=== PATIENT | female | born 1985 | race Caucasian/White ===

== ENCOUNTER 2023-11-02 17:47 | Emergency (ER) | payer SELFPAY ==
[2023-11-02 17:50] VITALS: BP 130/73; PULSE 87; RESP 20; TEMP 36.8; O2SAT 97; BMI 38.7
--- NOTE | 2023-11-02 18:17 | ECG_ITS ---
The [facility] Test Date: 2023-11-02 Pat Name: GARO ROBLES Department: Room: - Gender: Female [employer]: : 1985 Requested By: GAUTAM DENSON Order Number: [id number] Reading MD: GAUTAM DENSON Measurements Intervals [place] Rate: 69 P: 72 MT: 158 QRS: 78 QRSD: 98 T: 72 QT: 390 QTc: 409 Interpretive Statements 1100 Sinus rhythm 9110 normal ECG No previous ECG available for comparison Electronically Signed On 11-03-2023 4:59:02 EST by GAUTAM DENSON
--- NOTE | 2023-11-02 18:18 | ED_ITS ---
HPI - General Adult General Chief complaint: Dizziness Stated complaint: CHEST PAIN Time Seen by Provider: 11/02/23 17:49 Source: patient Mode of arrival: walk-in Limitations: no limitations Related Data Allergies Allergy/AdvReac Type Severity Reaction Status Date / Time asenapine [From Saphris] Allergy Intermediate Verified 11/02/23 17:58 ciprofloxacin [From Cipro] Allergy Intermediate Verified 11/02/23 17:58 hydromorphone [From Dilaudid] Allergy Intermediate Hives Verified 11/02/23 17:58 levofloxacin [From Levaquin] Allergy Intermediate Verified 11/02/23 17:58 Review of Systems ROS Constitutional Reports: fatigue and malaise; Denies: fever or chills Ears, nose, mouth, and throat Reports: nasal congestion Cardiovascular Reports: chest pain Respiratory Reports: shortness of breath and cough Gastrointestinal Denies: nausea, vomiting or diarrhea Genitourinary Denies: painful urination Musculoskeletal Denies: back pain Integumentary/Breast Denies: rash Neurological Reports: dizziness; Denies: headache Hematologic/Lymphatic Denies: easy bruising Exam Narrative Exam Narrative: Gen.: Awake, alert, in no distress Head: Normocephalic, atraumatic ENT: Moist mucous membranes Respiratory: No respiratory distress, lungs clear bilaterally Cardio: Regular rate and rhythm Extremities: Moves extremities equally Psych: Normal mood and affect Neuro: No focal neuro deficit Skin: Warm, dry, intact Constitutional Vital Signs, click to edit/add: Last Vital Signs Temp 98.3 F 11/02/23 17:50 Pulse 70 11/02/23 20:15 Resp 18 11/02/23 20:15 BP 126/77 11/02/23 20:15 Pulse Ox 98 11/02/23 20:15 O2 Del Method Room Air 11/02/23 17:50 Course Vital Signs Vital signs: Vital Signs Temperature 98.3 F 11/02/23 17:50 Pulse Rate 87 11/02/23 17:50 Respiratory Rate 20 11/02/23 17:50 Blood Pressure 130/73 11/02/23 17:50 Pulse Oximetry 97 11/02/23 17:50 Oxygen Delivery Method Room Air 11/02/23 17:50 Temperature 98.3 F 11/02/23 17:50 Pulse Rate 70 11/02/23 20:15 Respiratory Rate 18 11/02/23 20:15 Blood Pressure 126/77 11/02/23 20:15 Pulse Oximetry 98 11/02/23 20:15 Oxygen Delivery Method Room Air 11/02/23 17:50 Medical Decision Making MDM Narrative Medical decision making narrative: EKG, lab studies, chest x-ray are unremarkable including D-dimer and troponin. Patient treated with IV fluids. She maintains normal vital signs in the emergency department. She was given education and reassurance on reevaluation by attending physician and will be discharged to follow-up tomorrow as scheduled with her primary care provider. Medical Records Medical records reviewed: Yes I reviewed the patient's medical records Lab Data Lab results reviewed: Yes I reviewed the patient's lab results Labs: Lab Results 11/02/23 11/02/23 Range/Units 18:35 19:00 WBC 6.3 (4.0-11.0) 10^3/uL RBC 4.26 (4.20-5.40) 10^6/uL Hgb 12.3 (12.0-16.0) g/dL Hct 39.7 (36.0-48.0) % MCV 93.2 (81.0-99.0) fL MCH 28.9 (26.7-34.0) pg MCHC 31.0 (29.9-35.2) g/dL RDW 12.3 (11.0-15.0) % Plt Count 244 (150-450) 10^3/uL MPV 9.6 (9.5-13.5) fL Neut % (Auto) 38.9 L (43.0-75.0) % Lymph % (Auto) 48.6 (20.5-60.0) % [place] % (Auto) 10.3 (1.7-12.0) % Eos % (Auto) 1.6 (0.9-7.0) % Baso % (Auto) 0.3 (0.2-2.0) % Neut # (Auto) 2.5 (1.4-6.5) 10^3/uL Lymph # (Auto) 3.1 (1.2-3.8) 10^3/uL [place] # (Auto) 0.7 (0.3-0.8) 10^3/uL Eos # (Auto) 0.1 (0.0-0.7) 10^3/uL Baso # (Auto) 0.0 (0.0-0.1) 10^3/uL Abs Immat Gran (auto) 0.02 (0.00-0.03) 10^3/uL Imm/Tot Granulo (auto) 0.3 (0.0-0.5) % PT 10.0 (9.0-11.6) sec INR 0.94 APTT 27.3 (22.3-36.2) sec D-Dimer 0.29 (<=0.59) mg/L FEU Sodium 139 (136-145) mmol/L Potassium 3.5 (3.5-5.1) mmol/L Chloride 104 (98-107) mmol/L Carbon Dioxide 27.3 (21.0-32.0) mmol/L Anion Gap 11.2 BUN 15.0 (7.0-18.0) mg/dL Creatinine 1.05 H (0.55-1.02) mg/dL Est GFR ( Amer) >60 (>=60) Est GFR (Non-Af Amer) 59 L (>=60) BUN/Creatinine Ratio 14.3 Glucose 88 (74-106) mg/dL Calcium 8.4 L (8.5-10.1) mg/dL Total Bilirubin 0.3 (0.2-1.0) mg/dL AST 16 (15-37) U/L ALT 20 (14-59) U/L Alkaline Phosphatase 71 (46-116) U/L Troponin I High Sens <4.0 L (4.0-51.3) pg/mL NT-Pro-B Natriuret Pep 175.0 (<=450.0) pg/mL Total Protein 6.8 (6.4-8.2) g/dL Albumin 3.1 L (3.4-5.0) g/dL Globulin 3.7 g/dL Albumin/Globulin Ratio 0.8 Urine Color Lt. yellow (YELLOW) Urine Clarity Clear (CLEAR) Urine pH 6.5 (5.0-9.0) Ur Specific [place] 1.020 (1.005-1.025) Urine Protein Negative (NEG/TRACE) mg/dL Urine Glucose (UA) Negative (NEGATIVE) mg/dL Urine Ketones Negative (NEGATIVE) mg/dL Urine Occult Blood Negative (NEGATIVE) Urine Nitrite Negative (NEGATIVE) Urine Bilirubin Negative (NEGATIVE) Urine Urobilinogen 0.2 (0.2-1.0) EU/dL Ur Leukocyte Esterase Negative (NEGATIVE) Urine HCG, Qual Negative (NEGATIVE) Monoscreen Negative (NEGATIVE) Imaging Data Chest x-ray: Attestation: I personally reviewed and interpreted this imaging study as follows: My impression: NAD ECG Data Attestation: I personally reviewed and interpreted this ECG as follows: (Normal sinus rhythm at a rate of 69, no acute ST elevation or ectopy. EKG reviewed by attending physician) Discharge Plan Discharge Chief Complaint: Dizziness Clinical Impression: Dizziness, Chest pain Patient Disposition: Home, Self-Care Time of Disposition Decision: 20:23 Condition: Good Instructions: Chest Pain (ED), Dizziness (ED) Stand Alone Forms: Portal Instructions Referrals: Physician,Non-Staff, MD [Primary Care Provider] - 11/03/23
[2023-11-02] MEDS: 0.9 % SODIUM CHLORIDE 1,000 ML 1000 ML IV (19:13)
[2023-11-02 19:23] LABS: Basophils Percent Auto 0.3 % (0.2-2.0); Eosinophils Absolute Auto 0.1 10^3/uL (0.0-0.7); Eosinophils Percent Auto 1.6 % (0.9-7.0); Hematocrit 39.7 % (36.0-48.0); Hemoglobin 12.3 g/dL (12.0-16.0); Immature Granulocytes Abs Auto 0.02 10^3/uL (0.00-0.03); Immature Granulocytes Pct Auto 0.3 % (0.0-0.5); Lymphocytes Absolute Auto 3.1 10^3/uL (1.2-3.8); Lymphocytes Percent Auto 48.6 % (20.5-60.0); Mean Corpuscular Hemoglobin 28.9 pg (26.7-34.0); Mean Corpuscular Volume 93.2 fL (81.0-99.0); Mean Platelet Volume 9.6 fL (9.5-13.5); Monocytes Absolute Auto 0.7 10^3/uL (0.3-0.8); Monocytes Percent Auto 10.3 % (1.7-12.0); Neutrophils Absolute Auto 2.5 10^3/uL (1.4-6.5); Neutrophils Percent Auto 38.9 % (43.0-75.0); Platelet Count 244 10^3/uL (150-450); Red Blood Count 4.26 10^6/uL (4.20-5.40); Red Cell Distribution Width 12.3 % (11.0-15.0); White Blood Count 6.3 10^3/uL (4.0-11.0)
[2023-11-02 19:24] LABS: Bilirubin Urine NEGATIVE (NEGATIVE); Blood Urine NEGATIVE (NEGATIVE); Clarity Urine CLEAR (CLEAR); Color Urine LT. YELLOW (YELLOW); Glucose Urine UA NEGATIVE (NEGATIVE); Ketones Urine NEGATIVE (NEGATIVE); Leukocyte Esterase Urine NEGATIVE (NEGATIVE); Nitrite Urine NEGATIVE (NEGATIVE); Protein Urine NEGATIVE (NEG/TRACE); Urobilinogen Urine 0.2 EU/dL (0.2-1.0); pH Urine 6.5 (5.0-9.0)
--- NOTE | 2023-11-02 19:24 | PC.NURSE ---
assumed care of patient at this time. bedside report received from JONNA Oconnor. patient resting in bed, in no apparent distress, texting on phone while adding information to report being given. patient reports having multiple viral illnesses over the past 3 weeks including covid, flu b, and another virus. patient reports dizziness and poor appetite coupled with vomiting and diarrhea last week. weakness and dizziness persisting. patient also c/o sinus congestion. patient reports she has not been eating well and that she was recently seen at [facility] where they didn't do anything for me. [place] did bloodwork and swab showing flu B. Patient was sent home with shaylee.
[2023-11-02 19:26] LABS: HCG Qualitative Urine* NEGATIVE (NEGATIVE); Urine Microscopic Indicated NO
[2023-11-02 19:26] LABS: Mono Screen NEGATIVE (NEGATIVE)
[2023-11-02 19:36] LABS: Alanine Aminotransferase 20 U/L (14-59); Albumin Globulin Ratio 0.8; Albumin Level 3.1 g/dL (3.4-5.0); Alkaline Phosphatase 71 U/L (46-116); Anion Gap 11.2; Aspartate Amino Transferase 16 U/L (15-37); BUN Creatinine Ratio 14.3; Bilirubin Total 0.3 mg/dL (0.2-1.0); Calcium 8.4 mg/dL (8.5-10.1); Carbon Dioxide 27.3 mmol/L (21.0-32.0); Chloride 104 mmol/L (98-107); Estimated GFR (African America >60 (>=60); Estimated GFR (Non-African Ame 59 (>=60); Globulin 3.7 g/dL; Glucose 88 mg/dL (74-106); Potassium 3.5 mmol/L (3.5-5.1); Sodium 139 mmol/L (136-145); Total Protein 6.8 g/dL (6.4-8.2); Troponin I High Sensitivity <4.0 pg/mL (4.0-51.3)
[2023-11-02 19:41] LABS: D Dimer 0.29 mg/L FEU (<=0.59); INR 0.94; Partial Thromboplastin Time 27.3 sec (22.3-36.2)
--- NOTE | 2023-11-02 19:44 | XR_ITS ---
The [address] [address] Patient Name: GARO ROBLES MRN: [id number] date: 1985 Sex: F Assigned Patient Location: ER Current Patient Location: Accession/Order Number: [id number] Exam Date: 11/02/2023 20:05 Report Date: 11/02/2023 20:56 At the request of: ТАТЬЯНА ARTHUR Procedure: XR chest 1V EXAM: XR chest 1V REASON FOR EXAM: Female, 37 years, Chest pain. TECHNIQUE: A single AP view of the chest is performed. COMPARISON: None. FINDINGS: Cardiac monitoring leads overlie the chest. The lungs are expanded and clear. Normal pleura. Normal size heart. Normal mediastinum and aries. Normal visualized pulmonary arteries. Normal visualized aortic arch and descending thoracic aorta. Normal visualized thoracic spine. Normal visualized ribs, clavicles, and shoulders. There is no demonstrated abnormality of the visualized soft tissue structures of the upper abdomen. XR/XR chest 1V IMPRESSION: Normal examination of the chest. Electronically authenticated by: SANDRA CROOKS Date: 11/02/2023 20:56
[2023-11-02 20:15] VITALS: BP 126/77; PULSE 70; RESP 18; O2SAT 98
== END 2023-11-02 20:39 | disposition home or self-care (01) ==
PROVIDERS: Physician Assistant; Emergency Provider Internal Medicine
DX: R07.9 Chest pain, unspecified (principal); R42 Dizziness and giddiness
CPT/HCPCS: 36415; 71045; 80053; 81003; 83880; 84484; 84703; 85025; 85378; 85610; 85730; 86308; 93005; 96360; 99285

== ENCOUNTER 2024-08-19 10:10 | Emergency (ER) | payer SELFPAY ==
[2024-08-19 10:18] VITALS: BP 129/98; PULSE 80; TEMP 36.9; O2SAT 98; BMI 41.2
--- OUTSIDE RECORDS SUMMARY | 2024-08-19 10:22 | XMS_ITS | CCD ---
Author Organization [facility] Care Team Providers Care Equipment Lead Name Role Phone SYEDA SU Unavailable Unavailable PHYSICIAN, DEFAULT Admitting Unavailable PHYSICIAN, DEFAULT Attending Unavailable David Britton Attending Physician Unavailabl e David Britton Rounding Physician Unavailable Tony Baez Primary Care Physician Unavailab CAM Vasquez Attending Unavaila CAM Conte Admitting Unavaila ble Adi Brower Unavailable Lexy Baum Unavailable Magnolia Ugalde Unavailable Julita Rogel Unavailable BRIGHT Baum Primary Care Provider BRIGHT Baum Attending Provider [phone] Daniela Mccain Unavailable Ines Atkins Unavailable BRIGHT Baum Primary Care Provider BRIGHT Baum Attending Provider PORTER ADKINS Consulting Unavailable PORTER ADKINS Attending Unavailable DR VENANCIO HERNANDEZ Primary Care Unavailable PORTER ADKINS Admitting Unavailable DANITA DORSEY Consulting Unavailable NO FAMILY, PHYSICIAN Primary Care Provider Unava ilable DO Sneha Amaral Emergency Provider [phone] No Pcp, No Pcp Primary Care Provider Unavailabl e Sneha Amaral Attending Unavailable Sneha Amaral Admitting Unavailable NO FAMILY, PHYSICIAN Primary Care Unavailable NO PCP, NO PCP Primary Care Unavailable Allergies Allergy Classification Reported Allergen(s) Allergy Type Date of Onset Reaction(s) Facility (1 source) Acetaminophen / HYDROcodone; Translations: [VICODIN] Drug Allergy 03-22-20 10 [facility] (1 source) Acetaminophen / oxyCODONE; Translations: [PERCOCET] Drug Allergy 03-22-20 10 [facility] (1 source) Acetaminophen / Propoxyphene; Translations: [DARVOCET] Drug Allergy 03-22-20 10 [facility] (2 sources) Asenapine Drug Allergy 02-12-20 11 [facility] (20 sources) Asenapine; Translations: [asenapine] Drug Allergy 06-19-20 16 [facility] (20 sources) Ciprofloxacin; Translations: [ciprofloxacin] Drug Allergy 11-06-20 18 [facility] (19 sources) HYDROmorphone; Translations: [hydromorphone] Drug Allergy 11-06-20 18 [facility] (10 sources) levoFLOXacin; Translations: [levofloxacin] Drug Allergy 06-19-20 16 [facility] (14 sources) levoFLOXacin; Translations: [Levaquin] Drug Allergy [facility]ository (5 sources) Sertraline Drug Allergy Order Mapper Other (1 source) Ciprofloxacin Drug Allergy [facility] (1 source) HYDROmorphone Drug Allergy [facility] (2 sources) Acetaminophen / HYDROcodone; Translations: [HYDROCODONE-ACET AMINOPHEN] Drug Allergy 06-19-20 16 Nausea [facility] (2 sources) Ciprofloxacin; Translations: [CIPROFLOXACIN HCL] Drug Allergy 06-19-20 [facility] HYDROmorphone; Translations: [HYDROMORPHONE (BULK)] Drug Allergy 06-19-20 16 Itching [facility] (2 sources) Propoxyphene N-Acetaminophen; Translations: [PROPOXYPHENE N-ACETAMINOPHEN] Propensity to adverse reactions to drug 06-19-20 16 GI Disturbance, Nausea [facility] Medications Current Medications Medication Drug Class(es) Dates Sig (Normalized) Sig (Original) acetaminophen 325 mg / HYDROcodone bitartrate 7.5 mg oral tablet (3 sources) Opioid Agonist Start: 10-24-2021 take 6 tablets by mouth every four hours Hydrocodone-Acetami nophen Active 1 TAB PO Q4H October 24, 2021 12:00am FOR 7 DAYS, MAX DAILY AMOUNT: 6 TABLETS 3.2 ml ARIPiprazole lauroxil 276 mg/ml prefilled syringe (9 sources) Start: 09-26-2021 End: 10-01-2021 Aripiprazole Lauroxil (Aristada) 882 mg/3.2 mL Suspension,Extended Rel Syring Active 882 MG IM Q30D 3.2 October 01, 2021 8:16am Start: 09-26-2021 End: 10-01-2021 Aripiprazole Lauroxil,Submic r. (Aristada Initio) 675 mg/2.4 mL Suspension,Extended Rel Syring Discontinued 675 MG IM Once September 26, 2021 12:00am October 01, 2021 8:17am atomoxetine 60 mg oral capsule (8 sources) Norepinephrine Reuptake Inhibitor Start: 10-01-2021 take 60 mg by mouth once daily in the morning Atomoxetine Active 60 MG PO Every morning October 01, 2021 12:00am Farooq gutierres buPROPion hydrochloride 100 mg oral tablet (11 sources) Aminoketone take 1 tablet by mouth every twelve hours buPROPion HCl 100 MG 1 tablet Orally Twice a day Active buPROPion HCl Ac tive busPIRone hydrochloride 5 mg oral tablet (20 sources) Start: 10-24-2021 take 5 mg by mouth twice daily Buspirone Active 5 MG PO Twice daily October 24, 2021 12:00am Start: 10-01-2021 End: 10-24-2021 take 10 mg by mouth three times daily Buspirone Discontinued 10 MG PO Three times daily October 01, 2021 12:00am October 24, 2021 4:30am Start: 09-20-2021 End: 10-01-2021 take 10 mg by mouth twice daily Buspirone Discontinued 10 MG PO Twice daily September 19, 2021 11:00pm October 01, 2021 8:17am Start: 02-08-2021 End: 10-01-2021 take 5 mg by mouth twice daily Buspirone Discontinued 5 MG PO Twice daily 60 February 09, 2021 10:04am October 01, 2021 8:17am Start: 11-10-2018 End: 03-14-2019 take 5 mg by mouth three times daily Buspirone Discontinued 5 MG PO Three times daily November 10, 2018 12:00am March 14, 2019 7:29am BuSpar 10 mg, 1 tablet BID Active BuSpar Active 12 hr carBAMazepine 200 mg extended release oral tablet (20 sources) Mood Stabilizer Start: 10-26-2021 take 1 tablet by mouth twice daily Carbamazepine (Tegretol Xr) 200 mg Tablet Extended Release 12 Hr Active 200 MG PO Twice daily 30 October 26, 2021 12:00am Start: 10-24-2021 End: 10-24-2021 take 200 mg by mouth twice daily Carbamazepine (Mood Stabiliz) Discontinued 200 MG PO Twice daily October 24, 2021 12:00am October 24, 2021 4:28am Start: 09-20-2021 End: 10-26-2021 take 100 mg by mouth twice daily Carbamazepine Discontinued 100 MG PO Twice daily October 01, 2021 8:16am October 26, 2021 9:57am take 1 tablet by nick th every twelve hours TEGretol 200 MG 1 tablet Orally Twice a day Active TEGretol Active cetirizine hydrochloride 10 mg oral tablet (16 sources) Histamine-1 Receptor Antagonist Start: 08-11-2022 take 1 tablet by mouth every twenty-four hours Cetirizine HCl 10 MG 1 tablet Orally Once a day for 30 day(s) Jul, Active Start: 07-15-2019 End: 02-08-2021 take 1 tablet by mouth once daily Cetirizine Discontinued 1 TAB PO Daily July 14, 2019 11:00pm February 07, 2021 11:40pm chlorhexidine gluconate 1.2 mg/ml mouthwash (3 sources) Start: 10-24-2021 take 1 mL by mouth twice daily Chlorhexidine Gluconate Active 15 ML PO Twice daily October 24, 2021 12:00am Chlorophyll (11 sources) Chlorophyll 50 MG/18DROPS as directed Orally daily Active Chlorophyll Acti ve cholecalciferol 0.025 mg oral tablet (4 sources) Vitamin D Start: 10-01-2021 take 25 ug by mouth once daily Cholecalciferol (Vitamin D3) Active 25 MCG PO Daily October 01, 2021 12:00am take 1 tablet by mouth once marina y cholecalciferol, vitamin D3, 5,000 units tablet Take 5,000 Units by mouth daily. 0 Active clindamycin 300 mg oral capsule (3 sources) Lincosamide Antibacterial Start: 10-24-2021 take 300 mg by mouth three times daily Clindamycin Hcl Active 300 MG PO Three times daily October 24, 2021 12:00am FOR 10 DAYS cyclobenzaprine hydrochloride 10 mg oral tablet (6 sources) Muscle Relaxant take 1 tablet by mouth three times daily as needed for muscle spasms cyclobenzaprine (FLEXERIL) 10 mg tablet Take 1 tablet (10 mg total) by mouth 3 (three) times a day as needed for muscle spasms. 0 Active dextromethorphan hydrobromide 1.5 mg/ml / pyrilamine maleate 1.5 mg/ml oral solution (2 sources) Uncompetitive P-ljxvda-H-aspartate Receptor Antagonist, Sigma-1 Agonist Start: 11-27-2021 take 20 mL by mouth every eight hours [place] DM 7.5-7.5 MG/5ML 20 ml Orally every 8 hours for 3 days Nov, Active Start: 11-27-2021 docusate sodium 100 mg oral capsule (3 sources) Start: 04-03-2022 take 1 capsule by mouth every twelve hours Docusate Sodium 100 MG 1 capsule as needed Orally bid for 30 day(s) March, Active hydrocortisone 25 mg/ml topical cream (17 sources) Corticosteroid Start: 03-31-2022 Anusol-HC 2.5 % 1 application Externally Twice a day for 5 day(s) March, Active Start: 02-08-2021 End: 10-24-2021 Hydrocortisone (Cortizone-10 ) 1 % Ointment Discontinued 1 APPLIC TOPICAL Three times daily February 07, 2021 11:00pm October 24, 2021 4:33am hydrOXYzine pamoate 50 mg oral capsule (20 sources) Antihistamine Start: 10-26-2021 take 50 mg by mouth every six hours Hydroxyzine Pamoate Active 50 MG PO Q6H 30 October 26, 2021 12:00am Start: 09-20-2021 End: 10-24-2021 take 25 mg by mouth at bedtime Hydroxyzine Pamoate Dis continued 25 MG PO Bedtime September 19, 2021 11:00pm October 24, 2021 4:36am Start: 09-20-2021 End: 10-24-2021 take 50 mg by mouth at bedtime Hydroxyzine Hcl Discont inued 50 MG PO Bedtime September 19, 2021 11:00pm October 24, 2021 4:33am Start: 02-08-2021 End: 02-09-2021 take 25 mg by mouth twice daily Hydroxyzine Pamoate Di scontinued 25 MG PO Twice daily February 07, 2021 11:00pm February 09, 2021 10:04am Start: 11-10-2018 End: 03-14-2019 take 25 mg by mouth every six hours Hydroxyzine Pamoate Discontinued 25 MG PO Q6H November 10, 2018 12:00am March 14, 2019 7:29am hydrOXYzine HCl Active lidocaine 25 mg/ml / prilocaine 25 mg/ml topical cream (3 sources) Antiarrhythmic, Amide Local Anesthetic Start: 04-03-2022 Lidocaine-Prilocaine 2.5-2.5 % as directed Externally bid for 5 day(s) March, Active meclizine hydrochloride 25 mg oral tablet (20 sources) Antiemetic Start: 01-28-2022 meclizine (ANTIVERT) 25 mg tablet Take 1 tablet (25 mg total) by mouth as needed in the morning and 1 tablet (25 mg total) as needed at noon and 1 tablet (25 mg total) as needed in the evening for dizziness. 30 tablet 0 01/28/2022 Active Start: 10-24-2021 take 25 mg by mouth once daily Meclizine Active 25 MG PO Daily October 24, 2021 12:00am Start: 10-08-2021 End: 10-24-2021 take 1 tablet by mouth once daily Meclizine (Antivert) 25 mg Tablet Discontinued 25 MG PO Daily October 08, 2021 12:00am October 24, 2021 4:31am Meclizine HCl Ac tive metroNIDAZOLE 500 mg oral tablet (5 sources) Nitroimidazole Antimicrobial Start: 10-24-2021 take 500 mg by mouth three times daily Metronidazole Active 500 MG PO Three times daily October 24, 2021 12:00am FOR 10 DAYS Start: 03-18-2020 take 1 tablet by nick th every twelve hours metroNIDAZOLE 500 MG 1 tablet Orally Twice a day for 7 days March, Active montelukast 10 mg oral tablet (3 sources) Leukotriene Receptor Antagonist Start: 02-08-2021 take 10 mg by mouth once daily at bedtime Montelukast Active 10 MG PO Daily at bedtime February 07, 2021 11:00pm naltrexone hydrochloride 50 mg oral tablet (7 sources) Opioid Antagonist Start: 05-15-2022 take 1 tablet by mouth once daily Naltrexone HCl 50 MG 1\2 tablet Orally Once a day for 30 day(s) Apr, Active Nirmatrelvir-Ritona vir (1 source) Start: 09-28-2023 take 1 tablet by mouth once Nirmatrelvir-Riton avir (Paxlovid (Eua)) 300 mg (150 mg x 2)-100 mg tablets,dose pack Active 0 PO .COMPLEX September 28, 2023 12:00am orally per package directions norethindrone 0.35 mg oral tablet (3 sources) Start: 09-20-2021 take 0.35 mg by mouth once daily Norethindrone (Contraceptive) Active 0.35 MG PO Daily September 19, 2021 11:00pm OLANZapine 5 mg oral tablet (3 sources) Atypical Antipsychotic Start: 10-26-2021 take 5 mg by mouth every six hours Olanzapine Active 5 MG PO Q6H 15 October 26, 2021 12:00am omeprazole 20 mg delayed release oral capsule (11 sources) Proton Pump Inhibitor take 2 capsules by mouth every twenty-four hours Omeprazole 20 MG 2 tablets Orally Once a day Active Omeprazole Activ e ondansetron 4 mg oral tablet (18 sources) Serotonin-3 Receptor Antagonist Start: 08-08-2022 take 1 tablet by mouth every eight hours as needed Zofran ODT 4 MG 1 tab Orally every 8 hours prn for 5 days Jul, Active Start: 10-24-2021 take 4 mg by mouth once daily Ondansetron Active 4 MG PO Daily October 24, 2021 12:00am Start: 11-06-2018 End: 03-14-2019 take 4 mg by mouth every eight hours Ondansetron Discontinued 4 MG PO Q8H November 06, 2018 12:00am March 14, 2019 7:29am ProAir HFA 108 (90 Base) MCG/ACT (1 source) take 1 puff(s) by inhalation every four hours as needed ProAir HFA 108 (90 Base) MCG/ACT 1 puff as needed Inhalation every 4 hrs Active Sulfacetamide / Sulfur (2 sources) Sulfonamide Antibacterial Prascion Active traZODone hydrochloride 50 mg oral tablet (14 sources) Serotonin Reuptake Inhibitor Start: 10-24-2021 take 100 mg by mouth at bedtime Trazodone Active 100 MG PO Bedtime October 24, 2021 4:42am Start: 09-20-2021 End: 10-24-2021 take 50 mg by mouth at bedtime Trazodone Discontinued 50 MG PO Bedtime October 01, 2021 8:16am October 24, 2021 4:42am traZODone HCl Ac tive Vitamin D (5 sources) Vitamin D Active Completed/Discontinued Medications Medication Drug Class(es) Dates Sig (Normalized) Sig (Original) albuterol 0.83 mg/ml inhalation solution (20 sources) beta2-Adrenergic Agonist Start: 08-08-2022 Albuterol Sulfate (2.5 MG/3ML) 0.083% 1 vial as needed Inhalation every 6 hrs for 10 days Jul, Not-Taking Start: 05-28-2022 take 2 puff(s) by in halation every six hours as needed for wheezing VENTOLIN HFA 90 mcg/actuation inhaler Indications: SOB (shortness of breath) INHALE 2 PUFFS EVERY 6 HOURS NEEDED FOR WHEEZING 8 g 2 05/28/2022 Active Start: 11-27-2021 take 2 puff(s) by in halation every four hours as needed Albuterol Sulfate HFA 108 (90 Base) MCG/ACT 2 puffs Inhalation every 4 hours as needed for 7 days Nov, Active Start: 11-27-2021 Start: 07-15-2019 take 1 puff(s) by in halation every four hours as needed Albuterol Sulfate 2 PUFF Inhalation Q4H PRN For Shortness Of Breath July 15, 2019 Active Start: 07-15-2019 End: 02-08-2021 take 1 puff(s) by inhalation every four hours Albuterol Sulfate (Ventolin Hfa) 90 mcg/actuation Hfa Aerosol Inhaler Active 2 PUFF INHALATION Q4H February 07, 2021 11:00pm Start: 03-16-2019 End: 07-15-2019 take 1 puff(s) by inhalation every four hours as needed Albuterol Sulfate 2 PUFF Inhalation Q4H PRN For Shortness Of Breath March 16, 2019 Discontinued Start: 03-16-2019 End: 07-15-2019 take 1 puff(s) by inhalation every four hours as needed Albuterol Sulfate [Ventolin Hfa] 2 PUFF Inhalation Q4H PRN For Shortness Of Breath March 16, 2019 July 15, 2019 Discontinued Start: 03-16-2019 End: 07-15-2019 take 1 puff(s) by inhalation every four hours Albuterol Sulfate (Ventolin Hfa) 90 mcg/actuation Hfa Aerosol Inhaler Discontinued 2 PUFF INHALATION Q4H March 15, 2019 11:00pm July 15, 2019 7:19am Start: 11-06-2018 End: 03-14-2019 take 1 puff(s) by inhalation every four hours as needed Albuterol Sulfate 2 PUFF Inhalation Q4H PRN For Shortness Of Breath November 06, 2018 March 14, 2019 Discontinued Start: 11-06-2018 End: 03-14-2019 take 1 puff(s) by inhalation every four hours as needed Albuterol Sulfate 2 PUFF Inhalation Q4H PRN For Shortness Of Breath November 06, 2018 Discontinued Start: 11-06-2018 End: 03-14-2019 take 1 puff(s) by inhalation every four hours Albuterol Sulfate Discontinued 2 PUFF INHALATION Q4H November 06, 2018 12:00am March 14, 2019 7:29am Start: 11-06-2018 End: 03-14-2019 take 1 puff(s) by inhalation every four hours Albuterol Sulfate Discontinued 2 PUFF INHALATION Q4H November 06, 2018 1:00am March 14, 2019 8:29am Start: 10-27-2018 Start: 10-27-2018 take 2 puff(s) by in halation every four hours as needed Ventolin HFA 108 (90 Base) MCG/ACT 2 puffs as needed Inhalation every 4 hrs for 7 days Oct, Active take 1 puff(s) by in halation every four hours as needed ProAir HFA 108 (90 Base) MCG/ACT 1 puff as needed Inhalation every 4 hrs Active ProAir HFA Activ e ALPRAZolam 1 mg oral tablet (20 sources) Benzodiazepine Start: 11-06-2018 End: 07-15-2019 take 1 mg by mouth twice daily Alprazolam Discontinued 1 MG PO Twice daily March 13, 2019 11:00pm July 15, 2019 7:14am amoxicillin 875 mg / clavulanate 125 mg oral tablet (3 sources) Penicillin-class Antibacterial Start: 08-13-2022 take 1 tablet by mouth every twelve hours Amoxicillin-Pot Clavulanate 875-125 MG 1 tablet Orally every 12 hrs for 10 day(s) Jul, Not-Taking ARIPiprazole 15 mg oral tablet (8 sources) Atypical Antipsychotic Start: 09-20-2021 End: 09-20-2021 take 15 mg by mouth once daily Aripiprazole Discontinued 15 MG PO Daily September 19, 2021 11:00pm September 20, 2021 8:13pm Start: 09-20-2021 End: 10-01-2021 Aripiprazole (Abilify Mainte na) 300 mg Suspension,Extended Rel Recon Discontinued MG IM September 19, 2021 11:00pm October 01, 2021 8:17am Abilify Active benztropine mesylate 0.5 mg oral tablet (11 sources) Anticholinergic, Antihistamine Start: 03-16-2019 End: 07-15-2019 take 0.5 mg by mouth twice daily Benztropine Discontinued 0.5 MG PO Twice daily March 15, 2019 11:00pm July 15, 2019 7:19am cariprazine 1.5 mg oral capsule (20 sources) Atypical Antipsychotic Start: 07-15-2019 End: 07-15-2019 Cariprazine July 15, 2019 Discontinued Start: 07-15-2019 End: 07-15-2019 Cariprazine [Vraylar] July 15, 2019 July 15, 2019 Discontinued Start: 07-15-2019 End: 07-15-2019 Cariprazine July 15, 2019 Discontinued Start: 07-15-2019 End: 07-15-2019 Cariprazine [Vraylar] July 15, 2019 July 15, 2019 Discontinued Start: 07-15-2019 End: 07-15-2019 Cariprazine July 15, 2019 Discontinued Start: 07-15-2019 End: 07-15-2019 Cariprazine [Vraylar] July 15, 2019 July 15, 2019 Discontinued Start: 07-15-2019 End: 07-15-2019 Cariprazine July 15, 2019 Discontinued Start: 07-15-2019 End: 07-15-2019 Cariprazine [Vraylar] July 15, 2019 July 15, 2019 Discontinued Start: 03-16-2019 End: 07-15-2019 Cariprazine (Vraylar) 1.5 mg capsule Discontinued July 14, 2019 11:00pm July 15, 2019 7:19am dextromethorphan hydrobromide 15 mg / guaiFENesin 400 mg / pseudoephedrine hydrochloride 60 mg oral tablet (4 sources) alpha-Adrenergic Agonist, Uncompetitive H-tpbrnv-K-aspartate Receptor Antagonist, Sigma-1 Agonist Start: 08-08-2022 take 1 tablet by mouth every four to six hours as needed Capmist DM 60-15-400 MG 1 tablet as needed Orally every 4-6 hours for 7 days Jul, Not-Taking estrogens, conjugated (mcc) 0.625 mg/ml vaginal cream (6 sources) Estrogen Start: 09-20-2021 End: 09-20-2021 Conjugated Estrogens (Premarin) 0.625 mg/gram cream Discontinued 1 APPLIC VAGINAL Bedtime September 19, 2021 11:00pm September 20, 2021 8:12pm Start: 02-08-2021 End: 10-24-2021 Conjugated Estrogens (Premar in) 0.625 mg/gram cream Discontinued 1 APPLIC VAGINAL Twice a Week February 07, 2021 11:00pm October 24, 2021 4:34am FLUoxetine 10 mg oral capsule (19 sources) Serotonin Reuptake Inhibitor Start: 09-20-2021 End: 10-01-2021 take 30 mg by mouth once daily Fluoxetine Discontinued 30 MG PO Daily September 19, 2021 11:00pm October 01, 2021 8:17am Start: 02-08-2021 End: 10-01-2021 take 20 mg by mouth once daily Fluoxetine Discontinued 20 MG PO Daily February 07, 2021 11:00pm October 01, 2021 8:17am PROzac Active fluticasone propionate 0.05 mg/actuat metered dose nasal spray (20 sources) Corticosteroid Start: 08-08-2022 take 1 spray(s) nasal route once daily Fluticasone Propionate 50 MCG/ACT 1 spray in each nostril Nasally Once a day for 14 day(s) Jul, Not-Taking Start: 09-20-2021 End: 10-24-2021 take 1 puff(s) by inhalation every four hours Fluticasone Propionate (Flovent Hfa) 110 mcg/actuation HFA aerosol inhaler Discontinued 2 PUFF INHALATION Q4H September 19, 2021 11:00pm October 24, 2021 4:35am Start: 07-15-2019 End: 07-15-2019 Fluticasone Propionate [Flov ent Hfa] July 15, 2019 July 15, 2019 Discontinued Start: 07-15-2019 End: 07-15-2019 Fluticasone Propionate 2018 Discontinued Start: 07-15-2019 End: 07-15-2019 Fluticasone Propionate [Flov ent Hfa] July 15, 2019 July 15, 2019 Discontinued Start: 07-15-2019 End: 07-15-2019 Fluticasone Propionate 2018 Discontinued Start: 07-15-2019 End: 07-15-2019 Fluticasone Propionate [Flov ent Hfa] July 15, 2019 July 15, 2019 Discontinued Start: 07-15-2019 End: 07-15-2019 Fluticasone Propionate Junus 2018 Discontinued Start: 07-15-2019 End: 07-15-2019 Fluticasone Propionate [Flov ent Hfa] July 15, 2019 July 15, 2019 Discontinued Start: 07-15-2019 End: 07-15-2019 Fluticasone Propionate Augus t 2018 Discontinued Start: 07-15-2019 End: 07-15-2019 Fluticasone Propionate (Flov ent Hfa) 110 mcg/actuation HFA aerosol inhaler Discontinued July 14, 2019 11:00pm July 15, 2019 7:19am Start: 03-14-2019 End: 10-24-2021 take 1 puff(s) by inhalation twice daily Fluticasone Propionate Discontinued 2 PUFF INHALATION Twice daily March 13, 2019 11:00pm October 24, 2021 4:35am take 1 spray(s) nasa l route in the morning fluticasone propionate (FLONASE) 50 mcg/actuation nasal spray Administer 1 spray into each nostril in the morning. 0 Active Governing Vessel Conception Vessel [place] Table Worker Packager (3 sources) Start: 02-09-2021 End: 10-24-2021 Governing Vessel Conception Vessel [place] Table Worker Packager Discontinued 10 drp PO Three times daily 0 February 08, 2021 11:00pm October 24, 2021 4:34am Start: 02-09-2021 End: 10-24-2021 Governing Vessel Conception Vessel [place] Table Worker Packager Discontinued 10 drp PO Three times daily 0 February 09, 2021 12:00am October 24, 2021 5:34am Homeopath Ciigpy-Yoaxoto-Nud m (3 sources) Start: 02-08-2021 End: 10-24-2021 Homeopath Pdwuaj-Eoawqkn-Yka m Discontinued 3 DROPS OTIC Twice daily February 07, 2021 11:00pm October 24, 2021 4:34am Start: 02-08-2021 End: 10-24-2021 Homeopath Zthutg-Opqfnyp-Qnd m Discontinued 3 DROPS OTIC Twice daily February 08, 2021 12:00am October 24, 2021 5:34am Hormone Combination (3 sources) Start: 02-09-2021 End: 10-24-2021 Hormone Combination Disconti nued 10 drp PO Three times daily 0 February 08, 2021 11:00pm October 24, 2021 4:34am Start: 02-09-2021 End: 10-24-2021 Hormone Combination Disconti nued 10 drp PO Three times daily 0 February 09, 2021 12:00am October 24, 2021 5:34am Ketorolac (11 sources) Nonsteroidal Anti-inflammatory Drug, Cyclooxygenase Inhibitor Start: 03-30-2015 Toradol per 15 mg March, 60 mg Lidocaine (7 sources) Antiarrhythmic, Amide Local Anesthetic Start: 10-27-2018 Lidocaine HCl 5 % as directed Externally to affected region on back Three times a day for 10 days Oct, Active Start: 10-27-2018 Lidocaine HCl 5 % as directed Externally to affected region on back Three times a day for 10 days Oct, Not-Taking Start: 10-27-2018 lithium carbonate 300 mg extended release oral tablet (11 sources) Start: 03-14-2019 End: 03-16-2019 take 300 mg by mouth at bedtime Kopperl Carbonate Discontinued 300 MG PO Bedtime March 13, 2019 11:00pm March 16, 2019 8:06am mupirocin 0.02 mg/mg topical ointment (3 sources) RNA Synthetase Inhibitor Antibacterial Start: 02-08-2021 End: 10-24-2021 Mupirocin Discontinued 1 APPLIC TOPICAL Three times daily February 07, 2021 11:00pm October 24, 2021 4:36am nicotine 2 mg chewing gum (11 sources) Cholinergic Nicotinic Agonist Start: 03-16-2019 End: 07-15-2019 Nicotine (Polacrilex) (Nicorelief) 2 mg Gum Discontinued 2 MG BUCCAL Q2H March 15, 2019 11:00pm July 15, 2019 7:19am olopatadine 2 mg/ml ophthalmic solution (3 sources) Histamine-1 Receptor Inhibitor Start: 02-08-2021 End: 10-24-2021 take 1 drop(s) into the eye(s) twice daily Olopatadine Discontinued 2 DROPS EYE-BOTH Twice daily February 07, 2021 11:00pm October 24, 2021 4:36am Orchex (3 sources) Start: 02-09-2021 End: 10-24-2021 take 2 tablets by mouth once before mealtime Orchex Discontinued 2 tab PO 3x/Day before meals 0 February 08, 2021 11:00pm October 24, 2021 4:34am Start: 02-09-2021 End: 10-24-2021 take 2 tablets by mouth once before mealtime Orchex Discontinued 2 tab PO 3x/Day before meals 0 February 09, 2021 12:00am October 24, 2021 5:34am Ovex (3 sources) Start: 02-09-2021 End: 10-24-2021 take 2 tablets by mouth twice daily before mealtime Ovex Discontinued 2 tab PO Twice daily before meals 0 February 08, 2021 11:00pm October 24, 2021 4:34am Start: 02-09-2021 End: 12-09-2021 take 2 tablets by mouth twice daily before mealtime Ovex Discontinued 2 tab PO Twice daily before meals 0 February 09, 2021 12:00am October 24, 2021 5:34am 24 hr paliperidone 1.5 mg extended release oral tablet (3 sources) Atypical Antipsychotic Start: 02-09-2021 End: 10-01-2021 take 1.5 mg by mouth once daily at bedtime Paliperidone Discontinued 1.5 MG PO Daily at bedtime February 08, 2021 11:00pm October 01, 2021 8:17am prazosin 1 mg oral capsule (8 sources) alpha-Adrenergic Keshia Start: 09-20-2021 End: 10-24-2021 take 1 mg by mouth at bedtime Prazosin Discontinued 1 MG PO Bedtime October 01, 2021 8:16am October 24, 2021 4:34am Prazosin HCl Act frieda predniSONE 20 mg oral tablet (8 sources) Start: 08-13-2022 take 1 tablet by mouth every twelve hours predniSONE 20 MG 1 tablet Orally 2 times a day for 5 day(s) Jul, Not-Taking Start: 10-27-2018 predniSONE 20 MG 2 tablets for 3 days, 1 tablet for 3 days Orally Once a day for 6 days Oct, Not-Taking Start: 10-27-2018 promethazine hydrochloride 50 mg oral tablet (3 sources) Phenothiazine Start: 10-24-2021 End: 10-24-2021 take 50 mg by mouth every eight hours Promethazine Discontinued 50 MG PO Q8H October 24, 2021 12:00am October 24, 2021 4:47am Ret Stomach (3 sources) Start: 02-09-2021 End: 10-24-2021 Ret Stomach Discontinued 10 drp PO Three times daily 0 February 08, 2021 11:00pm October 24, 2021 4:34am Start: 02-09-2021 End: 10-24-2021 Ret Stomach Discontinued 10 drp PO Three times daily 0 February 09, 2021 12:00am October 24, 2021 5:34am saccharomyces boulardii 250 mg oral capsule (11 sources) Start: 03-16-2019 End: 07-15-2019 take 1 capsule by mouth once daily Saccharomyces Boulardii (Florastor) 250 mg Capsule Discontinued 250 MG PO Daily March 15, 2019 11:00pm July 15, 2019 7:19am Silver Biotics (3 sources) Start: 02-09-2021 End: 10-24-2021 take 1 [tsp_us] by mouth three times daily Silver Biotics Discontinued 1 tsp PO Three times daily 0 February 08, 2021 11:00pm October 24, 2021 4:34am Start: 02-09-2021 End: 10-24-2021 take 1 [tsp_us] by mouth three times daily Silver Biotics Discontinued 1 tsp PO Three times daily 0 February 09, 2021 12:00am October 24, 2021 5:34am sodium chloride 0.111 meq/ml nasal spray (3 sources) Start: 02-08-2021 End: 10-24-2021 Sodium Chloride (Saline Nasal) 0.65 % aerosol,spray Discontinued 2 SPRAY INTRANASAL Four times daily February 07, 2021 11:00pm October 24, 2021 4:34am TB Test (11 sources) Start: 12-23-2017 TB Test Dec 0.1 mL vilazodone hydrochloride 20 mg oral tablet (20 sources) Start: 03-14-2019 End: 02-08-2021 take 20 mg by mouth once daily Vilazodone Discontinued 20 MG PO Daily March 16, 2019 8:05am February 08, 2021 12:58am Zypan (3 sources) Start: 02-09-2021 End: 10-24-2021 take 2 tablets by mouth once before mealtime Zypan Discontinued 2 tab PO 3x/Day before meals 0 February 08, 2021 11:00pm October 24, 2021 4:36am Start: 02-09-2021 End: 10-24-2021 take 2 tablets by mouth once before mealtime Zypan Discontinued 2 tab PO 3x/Day before meals 0 February 09, 2021 12:00am October 24, 2021 5:36am Problems Active Problems Problem Classification Problem Date Documented Da te Episodic/Chronic Abdominal pain (17 sources) Abdominal pain; Translations: [Abdominal pain] Onset: 3 Episodic Anxiety disorders (8 sources) Chronic post-traumatic stress disorder; Translations: [Post-traumatic stress disorder, chronic] Onset: 8 11-06-2018 Chronic Asthma (5 sources) Exacerbation of asthma; Translations: [Unspecified asthma with (acute) exacerbation] Chronic Calculus of urinary tract (9 sources) Kidney stone; Translations: [Calculus of kidney] Onset: 2 Resolved: 2 Episodic Chronic obstructive pulmonary disease and bronchiectasis (1 source) Bronchitis, not specified as acute or chronic Episodic Esophageal disorders (9 sources) Gastroesophageal reflux disease; Translations: [Gastro-esophageal reflux disease without esophagitis] Onset: 2 Resolved: 2 Chronic Fluid and electrolyte disorders (7 sources) Hypokalemia; Translations: [Hypokalemia] 03-14-2019 Episodic Gastrointestinal hemorrhage (20 sources) Hematochezia; Translations: [Blood in stool] Episodic Headache, including migraine (1 source) Migraine, unspecified, not intractable, without status migrainosus; Translations: [Migraine, unspecified, not intractable, without status migrainosus] Onset: 8 Chronic Headache; including migraine (1 source) Headache Onset: 4 Episodic Headache; including migraine (1 source) Headache; including migraine; Translations: [Headache, unspecified] Onset: 4 Hemorrhoids (4 sources) Third degree hemorrhoids; Translations: [Fourth degree hemorrhoids] Onset: 2 Resolved: 2 Episodic Immunizations and screening for infectious disease (5 sources) Contact with and (suspected) exposure to other viral communicable diseases; Translations: [Contact with and (suspected) exposure to other viral communicable diseases] Episodic Malaise and fatigue (2 sources) Other fatigue; Translations: [Fatigue] Onset: 4 Episodic Mood disorders (20 sources) Bipolar affective disorder, current episode depression; Translations: [Bipolar disorder] Onset: 8 Resolved: 2 Chronic Nausea and vomiting (13 sources) Nausea and vomiting; Translations: [Nausea & vomiting] Episodic Noninfectious gastroenteritis (1 source) Noninfective gastroenteritis and colitis, unspecified; Translations: [NONINFECTIVE GE AND COLITIS UNS] Onset: 3 Episodic Nutritional deficiencies (9 sources) Vitamin D deficiency; Translations: [Vitamin D deficiency, unspecified] Onset: 2 Resolved: 2 Chronic Other aftercare (1 source) Other terminal gauger (current) drug therapy; Translations: [OTH SHELTER CURRENT DRUG THERAPY] Onset: 3 Episodic Other ear and sense organ disorders (1 source) Unspecified acute noninfective otitis externa, right ear; Translations: [Unspecified acute noninfective otitis externa, right ear] Onset: 4 Episodic Other gastrointestinal disorders (20 sources) Irritable bowel syndrome; Translations: [IBS (irritable bowel syndrome)] 03-14-2019 Chronic Other gastrointestinal disorders (1 source) Irritable bowel syndrome without diarrhea Onset: 2 Resolved: 2 Chronic Other gastrointestinal disorders (20 sources) Constipation; Translations: [Constipation] Episodic Other gastrointestinal disorders (13 sources) Diarrhea; Translations: [Diarrhea] Episodic Other lower respiratory disease (1 source) Personal history of other diseases of the respiratory system Episodic Other nutritional; endocrine; and metabolic disorders (8 sources) Obesity; Translations: [Obesity, unspecified] Chronic Other nutritional; endocrine; and metabolic disorders (1 source) Obesity, unspecified Onset: 2 Resolved: 2 Chronic Other upper respiratory disease (1 source) Allergic rhinitis; Translations: [Allergic rhinitis, unspecified] Onset: 9 10-10-2019 Chronic Other upper respiratory infections (1 source) Chronic sinusitis; Translations: [Chronic sinusitis, unspecified] Onset: 9 10-10-2019 Chronic Other upper respiratory infections (4 sources) Acute upper respiratory infection, unspecified; Translations: [Acute sinusitis, unspecified] Episodic Otitis media and related conditions (2 sources) Unspecified nonsuppurative otitis media, bilateral; Translations: [Otitis media, unspecified, right ear] Onset: 3 Episodic Personality disorders (1 source) Borderline personality disorder; Translations: [Borderline personality disorder] Onset: 1 06-06-2021 Chronic Residual codes; unclassified (1 source) Acquired absence of both cervix and uterus; Translations: [ACQUIRED ABSENCE BOTH CERVIX AND UTERUS] Onset: 3 Episodic Substance-related disorders (7 sources) Cannabis dependence; Translations: [Cannabis dependence, uncomplicated] 11-06-2018 Chronic Suicide and intentional self-inflicted injury (7 sources) Suicidal thoughts; Translations: [Suicidal ideations] 11-06-2018 Episodic Thyroid disorders (7 sources) Subclinical hypothyroidism; Translations: [Other specified hypothyroidism] 03-14-2019 Chronic Unclassified (1 source) ENT Problem Onset: 4 Unclassified (1 source) Earache, Fatigue Onset: 4 Viral infection (2 sources) Zoster without complications; Translations: [Disease caused by 2019-nCoV] Episodic Past or Other Problems Problem Classification Problem Date Documented Da te Episodic/Chronic Conditions associated with dizziness or vertigo (1 source) Dizziness; Translations: [Dizziness and giddiness] Onset: 10-10-2019 10-10-2019 Episodic Genitourinary symptoms and ill-defined conditions (5 sources) Dysuria; Translations: [Dysuria] Onset: 03-26-2017 03-26-2017 Episodic Mood disorders (1 source) Mood disorders Onset: 10-30-2021 10-30-2021 Other gastrointestinal disorders (1 source) Constipation, unspecified Onset: 04-29-2022 Resolved: 04-29-2022 Episodic Other injuries and conditions due to external causes (1 source) Injury of face; Translations: [Unspecified injury of face, initial encounter] Onset: 12-28-2019 12-28-2019 Episodic Other non-traumatic joint disorders (1 source) Pain in elbow; Translations: [Pain in right elbow] Onset: 03-26-2017 03-26-2017 Episodic Other upper respiratory disease (1 source) Deviated nasal septum; Translations: [Deviated nasal septum] Onset: 10-10-2019 10-10-2019 Episodic Other upper respiratory disease (1 source) Perforation of nasal septum; Translations: [Other specified disorders of nose and nasal sinuses] Onset: 01-07-2021 01-07-2021 Episodic Other upper respiratory disease (1 source) Abscess of nasal septum; Translations: [Abscess, furuncle and carbuncle of nose] Onset: 10-22-2021 10-22-2021 Episodic Residual codes; unclassified (1 source) History of nasal sinus surgery; Translations: [Other specified postprocedural states] Onset: 01-23-2021 01-23-2021 Episodic Results Test Name Value Interpretation Reference Range Facility BASIC METABOLIC PANLon 06-11 -2024 Anion gap [Moles/Vol] 6 mmol/L Normal 5-15 [facility] Comment on above: Performed By: #### C IVETH, BMP #### [facility] ([id number]) [address] [place] [address] 97083 Calcium [Mass/Vol] 8.7 mg/dL Normal 8.5-10.5 [facility] Comment on above: Performed By: #### C IVETH, BMP #### [facility] ([id number]) [address] [place] [address] 61601 Chloride [Moles/Vol] 104 mmol/L Normal 98-109 [facility] Comment on above: Performed By: #### C IVETH, BMP #### [facility] ([id number]) [address] [place] [address] 82559 CO2 [Moles/Vol] 24 mmol/L Normal 22-32 [facility] Comment on above: Performed By: #### C IVETH, BMP #### [facility] ([id number]) [address] [place] [address] 74935 Creatinine [Mass/Vol] 0.64 mg/dL Normal 0.40-1.00 [facility] Comment on above: Result Comment: METH OD TRACEABLE TO IDMS STANDARD Performed By: #### C IVETH, BMP #### [facility] ([id number]) [address] [place] [address] 22198 eGFR (CKD-EPI) NON-RACE DEPENDENT >90 Normal >59 [facility] Comment on above: Result Comment: Reported eGFR is based on the CKD-EPI 2020 equation that does not use a race coefficient. Performed By: #### C IVETH, BMP #### [facility] ([id number]) [address] [place] [address] 26632 Glucose [Mass/Vol] 89 mg/dL Normal 65-99 [facility] Comment on above: Performed By: #### C IVETH, BMP #### [facility] ([id number]) [address] [place] [address] 17338 Potassium [Moles/Vol] 4.2 mmol/L Normal 3.5-5.0 [facility] Comment on above: Performed By: #### C IVETH, BMP #### [facility] ([id number]) [address] [place] [address] 84163 Sodium [Moles/Vol] 134 mmol/L Normal 134-146 [facility] Comment on above: Performed By: #### C IVETH, BMP #### [facility] ([id number]) [address] [place] [address] 97762 Urea nitrogen [Mass/Vol] 14 mg/dL Normal 5-23 [facility] Comment on above: Performed By: #### C IVETH, BMP #### [facility] ([id number]) [address] [place] [address] 57951 CBC AND AUTO DIFFon 04-26-20 24 ABSOLUTE BASOPHIL 0.2 X10E9/L Normal 0.0-0.2 [facility] Comment on above: Performed By: #### C IVETH, BMP #### [facility] ([id number]) [address] [place] [address] 84036 ABSOLUTE NEUTROPHIL 4.6 X10E9/L Normal 1.5-6.6 [facility] Comment on above: Performed By: #### C IVETH, BMP #### [facility] ([id number]) [address] [place] [address] 12916 Basophils/100 WBC (Bld) 1.9 % Normal [facility] Comment on above: Performed By: #### C IVETH, BMP #### [facility] ([id number]) [address] [place] [address] 21717 Eosinophils (Bld) [#/Vol] 0.4 10*3/uL Normal 0.0-0.4 [facility] Comment on above: Performed By: #### C IVETH, BMP #### [facility] ([id number]) [address] [place] [address] 14199 Eosinophils/100 WBC (Bld) 4.2 % Normal [facility] Comment on above: Performed By: #### C IVETH, BMP #### [facility] ([id number]) [address] [place] [address] 05898 Erythrocyte distribution width (RBC) [Ratio] 13.1 % Normal 11.5-15.0 [facility] Comment on above: Performed By: #### C IVETH, BMP #### [facility] ([id number]) [address] [place] [address] 19374 Hematocrit (Bld) [Volume fraction] 40.0 % Normal 35-47 [facility] Comment on above: Performed By: #### C IVETH, BMP #### [facility] ([id number]) [address] [place] [address] 66379 Hemoglobin (Bld) [Mass/Vol] 13.3 g/dL Normal 11.7-15.5 [facility] Comment on above: Performed By: #### C IVETH, BMP #### [facility] ([id number]) [address] [place] [address] 64903 Lymphocytes (Bld) [#/Vol] 2.7 10*3/uL Normal 1.0-3.5 [facility] Comment on above: Performed By: #### C IVETH, BMP #### [facility] ([id number]) [address] [place] [address] 79267 Lymphocytes/100 WBC (Bld) 30.9 % Normal [facility] Comment on above: Performed By: #### C IVETH, BMP #### [facility] ([id number]) [address] [place] [address] 59413 MCH (RBC) [Entitic mass] 29.1 pg Normal 27-34 [facility] Comment on above: Performed By: #### Jamee LAZARO, BMP #### [facility] ([id number]) [address] [place] [address] 21759 MCHC (RBC) [Mass/Vol] 33.1 g/dL Normal 32-36 [facility] Comment on above: Performed By: #### C IVETH, BMP #### [facility] ([id number]) [address] [place] [address] 66205 MCV (RBC) [Entitic vol] 88 fL Normal 80-100 [facility] Comment on above: Performed By: #### Jamee LAZARO, BMP #### [facility] ([id number]) [address] [place] [address] 60699 Monocytes (Bld) [#/Vol] 0.8 10*3/uL Normal 0-0.9 [facility] Comment on above: Performed By: #### Jamee LAZARO, BMP #### [facility] ([id number]) [address] [place] [address] 94982 Monocytes/100 WBC (Bld) 8.9 % Normal [facility] Comment on above: Performed By: #### Jamee LAZARO, BMP #### [facility] ([id number]) [address] [place] [address] 02304 Neutrophils/100 WBC (Bld) 54.1 % Normal [facility] Comment on above: Performed By: #### C IVETH, BMP #### [facility] ([id number]) [address] [place] [address] 19425 Platelet mean volume (Bld) [Entitic vol] 7.6 fL Normal 7-12 [facility] Comment on above: Performed By: #### Jamee LAZARO, BMP #### [facility] ([id number]) [address] [place] [address] 94120 Platelets (Bld) [#/Vol] 289 10*3/uL Normal 150-450 [facility] Comment on above: Performed By: #### C BCA, BMP #### [facility] ([id number]) [address] [place] [address] 71321 RBC COUNT 4.55 X10E12/L Normal 3.80-5.20 [facility] Comment on above: Performed By: #### C IVETH, BMP #### [facility] ([id number]) [address] [place] [address] 03031 WBC (Bld) [#/Vol] 8.6 10*3/uL Normal 4.0-11.0 [facility] Comment on above: Performed By: #### Jamee LAZARO, BMP #### [facility] ([id number]) [address] [place] [address] 47493 Alanine aminotransferase [En zymatic activity/volume] in Serum or PlasmaOrdered By: Sneha Amaral on 09-28-2023 ALT [Catalytic activity/Vol] 11 U/L 7-52 [facility] Albumin [Mass/volume] in Ser um or Plasma by Bromocresol green (BCG) dye binding methoOrdered By: Sneha Amaral on 09-28-2023 Albumin BCG dye [Mass/Vol] 4.0 g/dL 3.5-5.7 [facility] Alkaline phosphatase [Enzyma tic activity/volume] in Serum or PlasmaOrdered By: Sneha Amaral on 09-28-2023 ALP [Catalytic activity/Vol] 57 U/L 34-104 [facility] Aspartate aminotransferase [ Enzymatic activity/volume] in Serum or PlasmaOrdered By: Sneha Amaral on 09-28-2023 AST [Catalytic activity/Vol] 14 U/L 13-39 [facility] Automated erythrocytes count in urine sediment (number/area)Ordered By: Sneha Amaral on 09-28-2023 RBC Auto (Urine sed) [#/Area] 3-4 [HPF] 0-4 [facility] Automated leukocytes count i n urine sediment (number/area)Ordered By: Sneha Amaral on 09-28-2023 WBC Auto (Urine sed) [#/Area] 1-2 [HPF] 0-4 [facility] Basic Metabolic Panelon 09-16 Anion gap [Moles/Vol] 11.1 mmol/L Normal 6.0-15.[address] [facility] Comment on above: Performed By: #### P T, BMP, LIPASE, HEPATIC, CBC #### [facility] [address] Calcium [Mass/Vol] 9.0 mg/dL Normal 8.6-10.3 [facility] Comment on above: Performed By: #### P T, BMP, LIPASE, HEPATIC, CBC #### [facility] [address] [place] [address] [place] Chloride [Moles/Vol] 107 mmol/L Normal 98-107 [facility] Comment on above: Performed By: #### P T, BMP, LIPASE, HEPATIC, CBC #### [facility] [address] [place] [address] [place] CO2 [Moles/Vol] 24.7 mmol/L Normal 21.0-31.0 [facility] Comment on above: Performed By: #### P T, BMP, LIPASE, HEPATIC, CBC #### [facility] [address] [place] [address] [place] Creatinine [Mass/Vol] 0.73 mg/dL Normal 0.60-1.20 [facility] Comment on above: Performed By: #### P T, BMP, LIPASE, HEPATIC, CBC #### [facility] [address] [place] [address] [place] Creatinine Clr Calc Pharmacy 124.63 [facility] Comment on above: Performed By: #### P T, BMP, LIPASE, HEPATIC, CBC #### [facility] [address] [place] [address] [place] GFR/1.73 sq M.predicted MDRD (S/P/Bld) [Vol rate/Area] mL/min/{1.73_m2} [facility] Comment on above: Performed By: #### P T, BMP, LIPASE, HEPATIC, CBC #### [facility] [address] Glucose [Mass/Vol] 102 mg/dL High 70-100 [facility] Comment on above: Result Comment: [facility] Glucose Reference Range is dependent on time and content of last meal. Glucose of more than 200 mg/dL in a nonstressed, ambulatory subject supports the diagnosis of Diabetes Mellitus. ADA recommended reference range Performed By: #### P T, BMP, LIPASE, HEPATIC, CBC #### [facility] [address] Potassium [Moles/Vol] 3.8 mmol/L Normal 3.5-5.1 [facility] Comment on above: Performed By: #### P T, BMP, LIPASE, HEPATIC, CBC #### [facility] [address] Sodium [Moles/Vol] 139 mmol/L Normal 136-145 [facility] Comment on above: Performed By: #### P T, BMP, LIPASE, HEPATIC, CBC #### [facility] [address] [place] [address] [place] Urea nitrogen [Mass/Vol] 13 mg/dL Normal 7-25 [facility] Comment on above: Performed By: #### P T, BMP, LIPASE, HEPATIC, CBC #### [facility] [address] Basophils Auto (Bld) [#/Vol] Ordered By: Sneha Amaral on 09-28-2023 Basophils (Bld) [#/Vol] 0.1 10*3/uL 0.0-0.2 [facility] Basophils/100 WBC Auto (Bld) Ordered By: Sneha Amaral on 09-28-2023 Basophils/100 WBC (Bld) 0.7 % . [facility] Bilirubin Test strip Ql (U)O rdered By: Sneha Amaral on 09-28-2023 Bilirubin Ql (U) Negative Negative [facility] Bilirubin.direct [Mass/volum e] in Serum or PlasmaOrdered By: Sneha Amaral on 09-28-2023 Bilirubin.direct [Mass/Vol] 0.10 mg/dL 0.03-0.18 [facility] Bilirubin.total [Mass/volume ] in Serum or PlasmaOrdered By: Sneha Amaral on 09-28-2023 Bilirubin [Mass/Vol] 0.6 mg/dL 0.3-1.0 [facility] COVID CepheidOrdered By: Najma Amaral on 09-28-2023 SARS-CoV-2 (COVID-19) Ab IA Ql Positive Negative [facility] Comment on above: This is a duplicate Cepheid Xpert Xpress CoV-2/Flu/RSV Plus RNA by RT-PCR result to be used for statistical tracking purpose only. SARS-CoV-2 (COVID-19) RNA LILY+probe Ql (Unsp spec) [facility] COVID-19 / Flu A/B / RSV PCR on 09-28-2023 SARS-CoV-2 (COVID-19) RNA LILY+probe Ql (Unsp spec) Results called at 0914 on 09/28/23 COVID-19 Cepheid Result Positive for SARS-CoV-2 RNA by RT-PCR Flu A Cepheid Result Negative for Flu A RNA by RT-PCR Flu B Cepheid Result Negative for Flu B RNA by RT-PCR RSV Cepheid Result Negative for RSV RNA by RT-PCR COVID19 Blank Space ---- Reference: Negative COVID19 Blank Space ---- Cepheid Disclaimer The Cepheid Xpert Xpress CoV-2/Flu/RSV Plus has Cepheid Disclaimer not been FDA cleared or approved; this test has Cepheid Disclaimer been authorized by FDA under an EUA for use by Cepheid Disclaimer authorized laboratories; this test has been Cepheid Disclaimer authorized only for the simultaneous qualitative Cepheid Disclaimer detection and differentiation of nucleic acids from Cepheid Disclaimer SARS-CoV-2, influenza A, influenza B, and Cepheid Disclaimer respiratory syncytial virus (RSV), and not for any Cepheid Disclaimer other viruses or pathogens; and this test is only Cepheid Disclaimer authorized for the duration of the declaration that Cepheid Disclaimer circumstances exist justifying the authorization of Cepheid Disclaimer emergency use of in vitro diagnostic tests for Cepheid Disclaimer detection and/or diagnosis of COVID-19 under Cepheid Disclaimer Section 564(b)(1) of the Act, 21 U.S.C. 360bbb- Cepheid Disclaimer 3(b)(1), unless the authorization is terminated or Cepheid Disclaimer revoked sooner. PERFORMED BY: [place] [address] PATHOLOGIST GRAVITY MANAGER MELISA CID M.D. [facility] Comment on above: Performed By: #### C OVID19 FLU RSV, CEPHEID POS #### [address] abdomen pelvis wo conon 1 11-28-2022 CT abdomen pelvis wo [facility] [place] [address] [place] [address] CT Scan Report Signed Patient: Garo Oliveros MR#: [id number] 54 : 1985 Acct:[id number] Age/Sex: 37 / F ADM Date: 09/28/23 Loc: ER Room: Type: [facility] ER Attending Dr: Copies to: Sneha Amaral DO Ordering Provider: Sneha Amaral DO Date of Service: 09/28/23 CT/CT abdomen pelvis wo con: Abdominal Pain CT ABDOMEN AND PELVIS WITHOUT CONTRAST COMPARISON: None CLINICAL DATA: Abdominal and low back pain for several weeks. Cramping. Spiral images were obtained through the abdomen and pelvis without contrast. This CT exam was performed using one or more following dose reduction techniques: Automated exposure control, adjustment of the mA and/or kV according to patient size, or use of iterative reconstruction technique. Limited cuts through the lung bases show no contributory findings. Assessment of the intra-abdominal organs is slightly limited by the absence of contrast. No intrahepatic masses are identified. No calcified gallstones are seen. The spleen, pancreas and adrenal glands show no acute findings. There are no renal calculi or hydronephrosis. No ureteral dilatation or stones are noted. The abdominal aorta is normal caliber. There are tiny lymph nodes. No ascites is seen. The small bowel loops are not distended. There is a small amount of colonic stool on the right. A left colon is decompressed. There is subtle reverse S-shaped scoliotic curvature and mild degenerative changes involving the spine, greatest at the lower facets. There are no compression fractures or displacement. Images through the pelvis show normal appendix. No dilated small bowel is seen. A small amount of distal colonic stool is visualized. No diverticular disease is seen. The uterus is surgically absent. The bladder is not well distended for assessment. There are small benign inguinal lymph nodes. No ascites is noted. There is a tiny umbilical hernia containing fat. Subcutaneous nodularity in the buttock region bilaterally could relate to previous injections. CT/CT abdomen pelvis wo con IMPRESSION: NO BOWEL OR URINARY TRACT OBSTRUCTION. NO ACUTE FINDINGS. Impression dictated by: Gogo Martinez M.D.09/28/2023 8:54 AM Dictation Location: [place] [address] Transcribed By: [facility] 09/28/23 0854 Dictated By: Gogo Martinez MD 09/28/23 0848 Signed By: 09/28/23 0854 Normal [facility] Calcium [Mass/volume] in Ser um or PlasmaOrdered By: Sneha Amaral on 09-28-2023 Calcium [Mass/Vol] 9.0 mg/dL 8.6-10.3 [facility] Carbon dioxide, total [Moles /volume] in Serum or PlasmaOrdered By: Sneha Amaral on 09-28-2023 CO2 [Moles/Vol] 24.7 mmol/L 21.0-31.0 [facility] Cepheid COVID PCR Positiveon 09-28-2023 SARS-CoV-2 (COVID-19) RNA LILY+probe Ql (Unsp spec) Positive Critically abnormal Negative [facility] Comment on above: Result Comment: This is a duplicate [employer] Xpert Xpress CoV-2/Flu/RSV Plus RNA by RT-PCR result to be used for statistical tracking purpose only. PERFORMED BY: [facility] [address] [place] [address] PATHOLOGIST GRAVITY MANAGER MELISA CID M.D. Performed By: #### C OVID19 FLU RSV, CEPHEID POS ####[facility] [id number] Chloride [Moles/volume] in S ethan or PlasmaOrdered By: Sneha Amaral on 09-28-2023 Chloride [Moles/Vol] 107 mmol/L 98-107 [facility] Color Auto (U)Ordered By: Deangelo Amaral on 09-28-2023 Color (U) Yellow Yellow [facility] Complete Blood Count Auto Di ffon 09-28-2023 Basophils (Bld) [#/Vol] 0.1 10*3/uL Normal 0.0-0.2 [facility] Comment on above: Result Comment: PERF ORMED BY: [facility] [address] [place] [address] PATHOLOGIST GRAVITY MANAGER MELISA CID M.D. Performed By: #### P T, BMP, LIPASE, HEPATIC, CBC #### [facility] [address] [place] [address] [place] Basophils/100 WBC (Bld) 0.7 % Normal . [facility] Comment on above: Performed By: #### P T, BMP, LIPASE, HEPATIC, CBC #### [facility] [address] [place] [address] [place] Eosinophils (Bld) [#/Vol] 0.2 10*3/uL Normal 0.0-0.45 [facility] Comment on above: Performed By: #### P T, BMP, LIPASE, HEPATIC, CBC #### [facility] [address] [place] [address] [place] Eosinophils/100 WBC (Bld) 2.0 % Normal . [facility] Comment on above: Performed By: #### P T, BMP, LIPASE, HEPATIC, CBC #### [facility] [address] [place] [address] [place] Erythrocyte distribution width (RBC) [Ratio] 13.1 % Normal 11.9-15.3 [facility] Comment on above: Performed By: #### P T, BMP, LIPASE, HEPATIC, CBC #### [address] Hematocrit (Bld) [Volume fraction] 37.6 % Normal 34.0-46.4 [facility] Comment on above: Performed By: #### P T, BMP, LIPASE, HEPATIC, CBC #### [address] Hemoglobin (Bld) [Mass/Vol] 12.6 g/dL Normal 11.8-15.4 [facility] Comment on above: Performed By: #### P T, BMP, LIPASE, HEPATIC, CBC #### [address] Lymphocytes (Bld) [#/Vol] 1.2 10*3/uL Normal 1.00-4.8 [facility] Comment on above: Performed By: #### P T, BMP, LIPASE, HEPATIC, CBC #### [address] Lymphocytes/100 WBC (Bld) 15.9 % Normal . [facility] Comment on above: Performed By: #### P T, BMP, LIPASE, HEPATIC, CBC #### [address] MCH (RBC) [Entitic mass] 29.4 pg Normal 24.7-34.3 [facility] Comment on above: Performed By: #### P T, BMP, LIPASE, HEPATIC, CBC #### [address] MCV (RBC) [Entitic vol] 87.7 fL Normal 80-100 [facility] Comment on above: Performed By: #### P T, BMP, LIPASE, HEPATIC, CBC #### [address] Mean Corpuscular HGB Conc 33.6 g/dL Normal 32.0-35.0 [facility] Comment on above: Performed By: #### P T, BMP, LIPASE, HEPATIC, CBC #### [address] Monocytes (Bld) [#/Vol] 0.6 10*3/uL Normal 0.0-0.8 [facility] Comment on above: Performed By: #### P T, BMP, LIPASE, HEPATIC, CBC #### [address] Monocytes/100 WBC (Bld) 16.23 % Normal 0.00-20.00 [facility] Comment on above: Performed By: #### P T, BMP, LIPASE, HEPATIC, CBC #### [address] Monocytes/100 WBC (Bld) 8.4 % Normal . [facility] Comment on above: Performed By: #### P T, BMP, LIPASE, HEPATIC, CBC #### [address] Neutrophils (Bld) [#/Vol] 5.6 10*3/uL Normal 1.8-7.7 [facility] Comment on above: Performed By: #### P T, BMP, LIPASE, HEPATIC, CBC #### [address] Neutrophils/100 WBC (Bld) 73.0 % Normal . [facility] Comment on above: Performed By: #### P T, BMP, LIPASE, HEPATIC, CBC #### [address] NRBC% 0.1 /100{WBC} Normal 0-0.5 [facility] Comment on above: Performed By: #### P T, BMP, LIPASE, HEPATIC, CBC #### [address] Platelet mean volume (Bld) [Entitic vol] 7.3 fL Normal 6.3-10.7 [facility] Comment on above: Performed By: #### P T, BMP, LIPASE, HEPATIC, CBC #### [address] Platelets (Bld) [#/Vol] 275 10*3/uL Normal 150-450 [facility] Comment on above: Performed By: #### P T, BMP, LIPASE, HEPATIC, CBC #### [facility] [address] RBC (Bld) [#/Vol] 4.29 10*6/uL Normal 3.60-5.00 [facility] Comment on above: Performed By: #### P T, BMP, LIPASE, HEPATIC, CBC #### [facility] [address] WBC (Bld) [#/Vol] 7.7 10*3/uL Normal 3.8-11.6 [facility] Comment on above: Performed By: #### P T, BMP, LIPASE, HEPATIC, CBC #### [address] Creatinine [Mass/volume] in Serum or PlasmaOrdered By: Sneha Amaral on 09-28-2023 Creatinine [Mass/Vol] 0.73 mg/dL 0.60-1.20 [facility] Dipstick and Microscopicon 1 11-28-2022 Appearance (U) Clear Normal Clear [facility] Comment on above: Order Comment: Name Collection Type:: Clean-Voided Midstream Performed By: #### A DDONUAPLUS #### [facility] [address] [place] [address] Bacteria,Urine None Seen Normal None Seen [facility] Comment on above: Order Comment: Name Collection Type:: Clean-Voided Midstream Performed By: #### A DDONUAPLUS #### [place] [address] [place] Bilirubin,Urine Negative Normal Negative [facility] Comment on above: Order Comment: Name Collection Type:: Clean-Voided Midstream Performed By: #### A DDONUAPLUS #### [address] Color (U) Yellow Normal Yellow [facility] Comment on above: Order Comment: Name Collection Type:: Clean-Voided Midstream Performed By: #### A DDONUAPLUS #### [facility] [address] [place] [address] [place] Glucose Ql (U) Normal Normal Normal [facility] Comment on above: Order Comment: Name Collection Type:: Clean-Voided Midstream Performed By: #### A DDONUAPLUS #### [facility] [address] [place] [address] [place] Hyaline Casts,Urine None Seen Normal 0-8 [facility] Comment on above: Order Comment: Name Collection Type:: Clean-Voided Midstream Result Comment: PERF ORMED BY: [place] [address] PATHOLOGIST GRAVITY MANAGER MELISA CID M.D. Performed By: #### A DDONUAPLUS #### [facility] [address] [place] [address] [place] Ketones Ql (U) Negative Normal Negative [facility] Comment on above: Order Comment: Name Collection Type:: Clean-Voided Midstream Performed By: #### A DDONUAPLUS #### [facility] [address] [place] [address] [place] Leukocyte esterase Test strip Ql (U) 1+ High Negative [facility] Comment on above: Order Comment: Name Collection Type:: Clean-Voided Midstream Performed By: #### A DDONUAPLUS #### [facility] [address] [place] [address] [place] Nitrite,Urine Negative Normal Negative [facility] Comment on above: Order Comment: Name Collection Type:: Clean-Voided Midstream Performed By: #### A DDONUAPLUS #### [facility] [address] [place] [address] [place] Occult Blood,Urine 1+ High Negative [facility] Comment on above: Order Comment: Name Collection Type:: Clean-Voided Midstream Result Comment: PERF ORMED BY: [place] [address] PATHOLOGIST GRAVITY MANAGER MELISA CID M.D. Performed By: #### A DDONUAPLUS #### [address] pH (U) 5.5 [pH] Normal 5.0-9.0 [facility] Comment on above: Order Comment: Name Collection Type:: Clean-Voided Midstream Performed By: #### A DDONUAPLUS #### [address] Protein,Urine Negative Normal Negative [facility] Comment on above: Order Comment: Name Collection Type:: Clean-Voided Midstream Performed By: #### A DDONUAPLUS #### [address] RBC,Urine 3-4 Normal 0-4 [facility] Comment on above: Order Comment: Name Collection Type:: Clean-Voided Midstream Performed By: #### A DDONUAPLUS #### [address] Specificy [place],Urine 1.024 Normal 1.001-1.03 0 [facility] Comment on above: Order Comment: Name Collection Type:: Clean-Voided Midstream Performed By: #### A DDONUAPLUS #### [address] Squamous Epithelial Cell,Urine 1-2 Normal 0-2 [facility] Comment on above: Order Comment: Name Collection Type:: Clean-Voided Midstream Performed By: #### A DDONUAPLUS #### [address] Urobilinogen,Urine Normal Normal Normal [facility] Comment on above: Order Comment: Name Collection Type:: Clean-Voided Midstream Performed By: #### A DDONUAPLUS #### [place] [address] [place] WBC,Urine 1-2 Normal 0-4 [facility] Comment on above: Order Comment: Name Collection Type:: Clean-Voided Midstream Performed By: #### A DDONUAPLUS #### [address] ECG 12 lead ECGon 09-28-2023 [address] [facility] [address] Electrocardiograph Report Signed Patient: Garo Oliveros MR#: [id number] 54 : 1985 Acct:[id number] Age/Sex: 37 / F ADM Date: 09/28/23 Loc: ER Room: Type: [facility] ER Attending Dr: Ordering Provider: Sneha Amaral DO Date of Service: 09/28/23 ECG/ECG 12 lead ECG: Abdominal Pain Copies to: Test Reason : Blood Pressure : / mmHG Vent. Rate : 079 BPM Atrial Rate : 079 BPM P-R Int : 152 ms QRS Dur : 100 ms QT Int : 352 ms P-R-T Axes : 061 082 079 degrees QTc Int : 403 ms Normal sinus rhythm Normal ECG When compared with ECG of 08-FEB-2021 14:53, No significant change was found Confirmed by SNEHA AMARAL DO ([id number]) on 09/28/2023 4:26:20 PM Referred By: Electronically Signed By:SNEHA AMARAL DO Transcribed By: MUS Signed By Sneha Amaral DO 09/28 1626 Normal [facility] Eosinophils Auto (Bld) [#/Vo l]Ordered By: Sneha Amaral on 09-28-2023 Eosinophils (Bld) [#/Vol] 0.2 10*3/uL 0.0-0.45 [facility] Eosinophils/100 WBC Auto (Bl d)Ordered By: Sneha Amaral on 09-28-2023 Eosinophils/100 WBC (Bld) 2.0 % . [facility] Erythrocyte distribution wid th Auto (RBC) [Ratio]Ordered By: Sneha Amaral on 09-28-2023 Erythrocyte distribution width (RBC) [Ratio] 13.1 % 11.9-15.3 [facility] Globulin Calc (S) [Mass/Vol] Ordered By: Sneha Amaral on 09-28-2023 Globulin (S) [Mass/Vol] 2.6 g/dL [facility] Glucose [Mass/volume] in Ser um or PlasmaOrdered By: Sneha Amaral on 09-28-2023 Glucose [Mass/Vol] 102 mg/dL 70-100 [facility] Comment on above: ADA recommended refe rence rangeRandom Glucose Reference Range is dependent on time and content of last meal. Glucose of more than 200 mg/dL in a nonstressed, ambulatory subject supports the diagnosis of Diabetes Mellitus. Hematocrit Auto (Bld) [Volum e fraction]Ordered By: Sneha Amaral on 09-28-2023 Hematocrit (Bld) [Volume fraction] 37.6 % 34.0-46.4 [facility] Hemoglobin [Mass/volume] in BloodOrdered By: Sneha Amaral on 09-28-2023 Hemoglobin (Bld) [Mass/Vol] 12.6 g/dL 11.8-15.4 [facility] Hepatic Panelon 09-28-2023 Albumin [Mass/Vol] 4.0 g/dL Normal 3.5-5.7 [facility] Comment on above: Performed By: #### P T, BMP, LIPASE, HEPATIC, CBC #### [facility] [address] Albumin/Globulin [Mass ratio] 1.5 {ratio} Normal [facility] Comment on above: Performed By: #### P T, BMP, LIPASE, HEPATIC, CBC #### [facility] [address] ALP [Catalytic activity/Vol] 57 U/L Normal 34-104 [facility] Comment on above: Performed By: #### P T, BMP, LIPASE, HEPATIC, CBC #### [facility] [address] [place] [address] [place] ALT [Catalytic activity/Vol] 11 U/L Normal 7-52 [facility] Comment on above: Performed By: #### P T, BMP, LIPASE, HEPATIC, CBC #### [facility] [address] [place] [id number] [place] AST [Catalytic activity/Vol] 14 U/L Normal 13-39 [facility] Comment on above: Performed By: #### P T, BMP, LIPASE, HEPATIC, CBC #### [facility] [address] [place] [address] [place] Bilirubin [Mass/Vol] 0.6 mg/dL Normal 0.3-1.0 [facility] Comment on above: Performed By: #### P T, BMP, LIPASE, HEPATIC, CBC #### [facility] [address] Bilirubin,Indirect 0.5 mg/dL Normal [facility] Comment on above: Performed By: #### P T, BMP, LIPASE, HEPATIC, CBC #### [facility] [address] Bilirubin.indirect [Mass/Vol] 0.10 mg/dL Normal 0.03-0.18 [facility] Comment on above: Performed By: #### P T, BMP, LIPASE, HEPATIC, CBC #### [facility] [address] Globulin (S) [Mass/Vol] 2.6 g/dL Normal [facility] Comment on above: Performed By: #### P T, BMP, LIPASE, HEPATIC, CBC #### [facility] [address] Protein [Mass/Vol] 6.6 g/dL Normal 6.4-8.9 [facility] Comment on above: Performed By: #### P T, BMP, LIPASE, HEPATIC, CBC #### [facility] [address] INR in Platelet poor plasma by Coagulation assayOrdered By: Sneha Amaral on 09-28-2023 INR Coag (PPP) [Relative time] 1.0 {INR} [facility] Comment on above: INR Therapeutic Rang e A) Pre- and Peroperative OAT started two weeks before surgery. NOT HIP SURGERY: 1.5 - 2.5 HIP SURGERY: 2 - 3B) Primary and secondary prevention of venous THROMBOSIS: 2 - 3C) Active venous thrombosis, pulmonary embolismand prevention of recurrent venous thrombosis: 2 - 3D) Prevention of arterial thromboembolismincluding patients with mechanical heart valves: 3 - 4.5 Ketones Auto test strip (U) [Mass/Vol]Ordered By: Sneha Amaral on 09-28-2023 Ketones (U) [Mass/Vol] Negative Negative [facility] - UrinalysisOrder ed By: Sneha Amaral on 09-28-2023 Hyaline casts LM Ql (Urine sed) None seen [LPF] 0-8 [facility] Leukocytes [#/volume] correc megan for nucleated erythrocytes in Blood by Automated counOrdered By: Sneha Amaral on 09-28-2023 WBC corrected for nucl RBC Auto (Bld) [#/Vol] 7.7 10*3/uL 3.8-11.6 [facility] Lipaseon 09-28-2023 Lipase [Catalytic activity/Vol] 7.0 U/L Low 11.0-82.0 [facility] Comment on above: Result Comment: PERF ORMED BY: [place] [address] PATHOLOGIST GRAVITY MANAGER MELISA CID M.D. Performed By: #### P T, BMP, LIPASE, HEPATIC, CBC #### [address] Lipase [Enzymatic activity/v olume] in Serum or PlasmaOrdered By: Sneha Amaral on 09-28-2023 Lipase [Catalytic activity/Vol] 7.0 U/L 11.0-82.0 [facility] Lymphocytes Auto (Bld) [#/Vo l]Ordered By: Sneha Amaral on 09-28-2023 Lymphocytes (Bld) [#/Vol] 1.2 10*3/uL 1.00-4.8 [facility] Lymphocytes/100 WBC Auto (Bl d)Ordered By: Sneha Amaral on 09-28-2023 Lymphocytes/100 WBC (Bld) 15.9 % . [facility] MCH Auto (RBC) [Entitic mass ]Ordered By: Sneha Amaral on 09-28-2023 MCH (RBC) [Entitic mass] 29.4 pg 24.7-34.3 [facility] MCHC Auto (RBC) [Mass/Vol]Or dered By: Sneha Amaral on 09-28-2023 MCHC (RBC) [Mass/Vol] 33.6 g/dL 32.0-35.0 [facility] MCV Auto (RBC) [Entitic vol] Ordered By: Sneha Amaral on 09-28-2023 MCV (RBC) [Entitic vol] 87.7 fL 80-100 [facility] Monocyte distribution width [Entitic volume] in Blood by AutomatedOrdered By: Sneha Amaral on 09-28-2023 Monocyte distribution width Auto (Bld) [Entitic vol] 16.23 % 0.00-20.00 [facility] Monocytes Auto (Bld) [#/Vol] Ordered By: Sneha Amaral on 09-28-2023 Monocytes (Bld) [#/Vol] 0.6 10*3/uL 0.0-0.8 [facility] Monocytes/100 WBC Auto (Bld) Ordered By: Sneha Amaral on 09-28-2023 Monocytes/100 WBC (Bld) 8.4 % . [facility] Neutrophils Auto (Bld) [#/Vo l]Ordered By: Sneha Amaral on 09-28-2023 Neutrophils (Bld) [#/Vol] 5.6 10*3/uL 1.8-7.7 [facility] Neutrophils/100 WBC Auto (Bl d)Ordered By: Sneha Amaral on 09-28-2023 Neutrophils/100 WBC (Bld) 73.0 % . [facility] Nitrite Test strip Ql (U)Ord ered By: Sneha Amaral on 09-28-2023 Nitrite Ql (U) Negative Negative [facility] No Panel InformationOrdered By: Sneha Amaral on 09-28-2023 Estimated GFR (CKD-EPI) > 60.0 mL/Min [facility] Creatinine Clearance (Chem 124.63 [facility] Nucleated erythrocytes [Pres ence] in Blood by Automated countOrdered By: Sneha Amaral on 09-28-2023 Nucleated RBC Auto Ql (Bld) 0.1 /100{WBC} 0-0.5 [facility] Platelet mean volume Auto (B ld) [Entitic vol]Ordered By: Sneha Amaral on 09-28-2023 Platelet mean volume (Bld) [Entitic vol] 7.3 fL 6.3-10.7 [facility] Platelets Auto (Bld) [#/Vol] Ordered By: Sneha Amaral on 09-28-2023 Platelets (Bld) [#/Vol] 275 10*3/uL 150-450 [facility] Potassium [Moles/volume] in Serum or PlasmaOrdered By: Sneha Amaral on 09-28-2023 Potassium [Moles/Vol] 3.8 mmol/L 3.5-5.1 [facility] Protein Auto test strip (U) [Mass/Vol]Ordered By: Sneha Amaral on 09-28-2023 Protein (U) [Mass/Vol] Negative Negative [facility] Protein [Mass/volume] in Ser um or PlasmaOrdered By: Sneha Amaral on 09-28-2023 Protein [Mass/Vol] 6.6 g/dL 6.4-8.9 [facility] Prothrombin Time INRon 09-28 INR Coag (PPP) [Relative time] 1.0 {INR} Normal [facility] Comment on above: Result Comment: INR Therapeutic Range A) Pre- and Peroperative OAT started two weeks before surgery. NOT HIP SURGERY: 1.5 - 2.5 HIP SURGERY: 2 - 3 B) Primary and secondary prevention of venous THROMBOSIS: 2 - 3 C) Active venous thrombosis, pulmonary embolism and prevention of recurrent venous thrombosis: 2 - 3 D) Prevention of arterial thromboembolism including patients with mechanical heart valves: 3 - 4.5 PERFORMED BY: [place] [address] PATHOLOGIST GRAVITY MANAGER MELISA CID M.D. Performed By: #### P T, BMP, LIPASE, HEPATIC, CBC #### [facility] [address] [place] [id number] [facility] PT Coag (PPP) [Time] 11.8 s Normal 9.0-12.9 [facility] Comment on above: Result Comment: A he matocrit value greater than 55% may lead to inaccurate results in coagulation testing. Patients having hematocrit values >55% require a special collection tube for coagulation studies. Please contact the laboratory at [phone] for redraw instructions. Performed By: #### P T, BMP, LIPASE, HEPATIC, CBC #### [facility] [address] [place] [address] [facility] Prothrombin time (PT)Ordered By: Sneha Amaral on 09-28-2023 PT Coag (PPP) [Time] 11.8 s 9.0-12.9 [facility] Comment on above: A hematocrit value g reater than 55% may lead to inaccurate results in coagulation testing. Patients having hematocrit values >55% require a special collection tube for coagulation studies. Please contact the laboratory at [phone] for redraw instructions. RBC Auto (Bld) [#/Vol]Ordere d By: Sneha Amaral on 09-28-2023 RBC (Bld) [#/Vol] 4.29 10*6/uL 3.60-5.00 [facility] Serum or plasma albumin/glob ulin mass ratioOrdered By: Sneha Amaral on 09-28-2023 Albumin/Globulin [Mass ratio] 1.5 {ratio} [facility] Serum or plasma anion gap de terminationOrdered By: Sneha Amaral on 09-28-2023 Anion gap [Moles/Vol] 11.1 mmol/L 6.0-15.[address] [facility] Serum or plasma non-glucuron idated bilirubin measurement (mass/volume)Ordered By: Sneha Amaral on 09-28-2023 Bilirubin.indirect [Mass/Vol] 0.5 mg/dL [facility] Sodium [Moles/volume] in Ser um or PlasmaOrdered By: Sneha Amaral on 09-28-2023 Sodium [Moles/Vol] 139 mmol/L 136-145 [facility] Specific gravity Auto test s trip (U) [Rel density]Ordered By: Sneha Amaral on 09-28-2023 Specific gravity (U) [Rel density] 1.024 1.001-1.03 0 [facility] [facility] Squamous epithelial cells de tection in urine sediment by light microscopyOrdered By: Sneha Amaral on 09-28-2023 Epithelial cells.squamous LM Ql (Urine sed) 1-2 [HPF] 0-2 [facility] Urea nitrogen [Mass/volume] in Serum or PlasmaOrdered By: Sneha Amaral 09-28-2023 Urea nitrogen [Mass/Vol] 13 mg/dL 7-25 [facility] Urine bacteria detection by automated methodOrdered By: Sneha Amaral on 09-28-2023 Bacteria Auto Ql (U) None seen None Seen [facility] Urine clarity by refractomet ry automatedOrdered By: Sneha Amaral on 09-28-2023 Clarity Refractometry automated (U) Clear Clear [facility] Urine glucose measurement by automated test strip (mass/volume)Ordered By: Sneha Amaral on 09-28-2023 Glucose Auto test strip (U) [Mass/Vol] Normal mg/dL Normal [facility] Urine hemoglobin detection b y automated test stripOrdered By: Sneha Amaral on 09-28-2023 Hemoglobin Auto test strip Ql (U) 1+ Negative [facility] Urine leukocyte esterase det ection by automated test stripOrdered By: Sneha Amaral on 09-28-2023 Leukocyte esterase Auto test strip Ql (U) 1+ Negative [facility] Urobilinogen Auto test strip (U) [Mass/Vol]Ordered By: Sneha Amaral on 09-28-2023 Urobilinogen (U) [Mass/Vol] Normal mg/dL Normal [facility] WBC Auto (Bld) [#/Vol]Ordere d By: Sneha Amaral on 09-28-2023 WBC (Bld) [#/Vol] 7.7 10*3/uL 3.8-11.6 [facility] XR chest 2V*on 09-28-2023 XR chest 2V* [facility] [address] XRay Report Signed Patient: Garo Oliveros MR#: [id number] 54 : 1985 Acct:[id number] Age/Sex: 37 / F ADM Date: 09/28/23 Loc: ER Room: Type: [facility] ER Attending Dr: Copies to: Sneha Amaral DO Ordering Provider: Sneha Amaral DO Date of Service: 09/28/23 XR/XR chest 2V*: Abdominal Pain PA AND LATERAL CHEST: CLINICAL HISTORY: Abdominal pain, cramping and burning with hematuria. Cough and chest burning. COMPARISON: 09/22/2021 There is no focal parenchymal consolidation, effusion or pneumothorax. The cardiac, hilar and mediastinal silhouettes are within normal limits. There is no vascular congestion. The visualized bony thorax is intact. End plate spurring is present. XR/XR chest 2V* IMPRESSION: NO ACUTE CARDIOPULMONARY ABNORMALITY. Impression dictated by: Gogo Martinez M.D.09/28/2023 8:33 AM Dictation Location: [place] [address] Transcribed By: [facility] 09/28/23832 Dictated By: Gogo Martinez MD 09/28/23831 Signed By: 09/28/23832 Normal [facility] pH Auto test strip (U)Ordere d By: Sneha Amaral on 09-28-2023 pH (U) 5.5 [pH] 5.0-9.0 [facility] Quick Strepon 01-02-2023 S. pyogenes Org specific cx Ql (Throat) Negative [facility] [employer] Other Quick Strep [facility] [employer] Other AMYLASEon 12-30-2022 Amylase [Catalytic activity/Vol] 90 U/L Normal 25-115 [facility] Comment on above: Performed By: #### C RP, YASHIRA, LIPA, CMP, ETH #### [facility] [address] [place] [address] Dr. Anusha Bettencourt CBC AUTO DIFFon 12-30-2022 BASO # 0.0 103/ul Normal 0.0-0.1 [facility] Comment on above: Performed By: #### C BC #### [facility] [address] [place] [address] Dr. Anusha Bettencourt Basophils/100 WBC (Bld) 0.4 % Normal 0.2-2.0 [facility] Comment on above: Performed By: #### C BC #### [facility] [address] [place] [address] Dr. Anusha Bettencourt EO # 0.2 103/ul Normal 0.0-0.7 [facility] Comment on above: Performed By: #### C BC #### [facility] [address] [place] [address] Dr. Anusha Bettencourt Eosinophils/100 WBC (Bld) 2.2 % Normal 0.9-7.0 [facility] Comment on above: Performed By: #### C BC #### [facility] [address] [place] [address] Dr. Anusha Bettencourt Erythrocyte distribution width (RBC) [Ratio] 12.4 % Normal 11.0-15.0 [facility] Comment on above: Performed By: #### C BC #### [facility] [address] [place] [address] Dr. Anusha Bettencourt Hematocrit (Bld) [Volume fraction] 41.2 % Normal 36.0-48.0 [facility] Comment on above: Performed By: #### C BC #### [facility] [address] [place] [address] Dr. Anusha Bettencourt Hemoglobin (Bld) [Mass/Vol] 13.5 g/dL Normal 12.0-16.0 [facility] Comment on above: Performed By: #### C BC #### [facility] [address] [place] [address] Dr. Anusha Bettencourt IG # 0.03 10e3/ul Normal 0.00-0.03 [facility] Comment on above: Performed By: #### C BC #### [facility] [address] [place] [address] Dr. Anusha Bettencourt IG % 0.3 % Normal 0.0-0.5 [facility] Comment on above: Performed By: #### C BC #### [facility] [address] [place] [address] Dr. Anusha Bettencourt LYMPH # 3.6 103/ul Normal 1.2-3.8 [facility] Comment on above: Performed By: #### C BC #### [facility] [address] [place] [address] Dr. Anusha Bettencourt Lymphocytes/100 WBC (Bld) 40.4 % Normal 20.5-60.0 [facility] Comment on above: Performed By: #### C BC #### [facility] [address] [place] [address] Dr. Anusha Bettencourt MANUAL DIFF REQ NO Normal [facility] Comment on above: Performed By: #### C BC #### [facility] [address] [place] [address] Dr. Anusha Bettencourt MCH (RBC) [Entitic mass] 29.0 pg Normal 26.7-34.0 [facility] Comment on above: Performed By: #### C BC #### [facility] [address] [place] [address] Dr. Anusha Bettencourt MCHC (RBC) [Mass/Vol] 32.8 g/dL Normal 29.9-35.2 [facility] Comment on above: Performed By: #### C BC #### [facility] [address] [place] [address] Dr. Anusha Bettencourt MCV (RBC) [Entitic vol] 88.4 fL Normal 81.0-99.0 [facility] Comment on above: Performed By: #### C BC #### [facility] [address] [place] [address] Dr. Anusha Bettencourt MONO # 1.0 103/ul Critically high 0.3-0.[address] [facility] Comment on above: Performed By: #### C BC #### [facility] [address] [place] [address] Dr. Anusha Bettencourt Monocytes/100 WBC (Bld) 11.1 % Normal 1.7-12.0 [facility] Comment on above: Performed By: #### C BC #### [facility] [address] [place] [address] Dr. Anusha Bettencourt NEUT # 4.1 103/ul Normal 1.4-6.5 [facility] Comment on above: Performed By: #### C BC #### [facility] [address] [place] [address] Dr. Anusha Bettencourt Neutrophils/100 WBC (Bld) 45.6 % Normal 43.0-75.0 [facility] Comment on above: Performed By: #### C BC #### [facility] [address] [place] [address] Dr. Anusha Bettencourt Platelet mean volume (Bld) [Entitic vol] 9.7 fL Normal 9.5-13.5 [facility] Comment on above: Performed By: #### C BC #### [facility] [address] [place] [address] Dr. Anusha Bettencourt PLT 297 103/ul Normal 150-450 [facility] Comment on above: Performed By: #### C BC #### [facility] [address] [place] [address] [address] Anusha Bettencourt RBC 4.66 106/ul Normal 4.20-5.40 [facility] Comment on above: Performed By: #### C BC #### [facility] [address] [place] [address] [address] Anusha Bettencourt WBC 8.9 103/ul Normal 4.0-11.0 [facility] Comment on above: Performed By: #### C BC #### [facility] [address] [place] [address] [address] Anusha Bettencourt CRPon 12-30-2022 CRP 0.1 mg/dL Normal <=1.0 [facility] Comment on above: Performed By: #### C RP, YASHIRA, LIPA, CMP, ETH #### [facility] [address] [place] [address] ABD/PELV W CONon 12-30-19 CT ABD/PELV W CON EXAMINATION: CT ABD/ PELV W CON HISTORY: GENERALIZED ABDOMINAL PAIN COMPARISON: None available TECHNIQUE: Multiple axial views CT abdomen pelvis after administration of 100 mL Omnipaque 300 IV contrast. Coronal and sagittal reformats. Dose reduction techniques were achieved by using automated exposure control and/or adjustment of mA and/or kV according to patient size and/or use of iterative reconstruction technique. FINDINGS: Visualized lung bases and cardiac apex are unremarkable. Liver, gallbladder, pancreas, spleen, adrenal glands, kidneys, urinary bladder, and other pelvic structures are unremarkable. Multiple calcified pelvic phleboliths. The appendix is unremarkable. No evidence for small bowel obstruction, large ascites, or free air. Diffuse moderately gaseous distended large bowel with mild amount of mixed liquid and solid stool. Stomach is underdistended/contracted . No perigastric inflammatory stranding. No acute bony abnormality. IMPRESSION: Moderately gaseous distended large bowel with mild amount of mixed liquid and solid stool. No discrete bowel wall thickening or pericolonic inflammatory stranding. Correlate clinically for underlying diarrhea/enteritis. No evidence for acute appendicitis. The appendix is unremarkable. Electronically authenticated by: DANITA DORSEY Date: 2022-12-30 00:32 Normal [facility] CULTURE URINEon 12-30-2022 CULTURE URINE Culture Observations : LIGHT GROWTH OF MIXED GENITAL CECILIO. NO POTENTIAL PATHOGENS SEEN. Normal [facility] Comment on above: Performed By: #### U RCX #### [facility] [address] [place] [address] Dr. Anusha Bettencourt ER URINE PROFILEon 3 Bilirubin Ql (U) Negative Normal NEGATIVE [facility] Comment on above: Performed By: #### Samia GUZMAN UMICRO #### [facility] [address] [place] [address] Dr. Anusha Bettencourt Clarity (U) CLEAR Normal CLEAR [facility] Comment on above: Performed By: #### Samia GUZMAN UMICRO #### [facility] [address] [place] [address] Dr. Anusha Bettencourt Color (U) YELLOW Normal YELLOW [facility] Comment on above: Performed By: #### Samia GUZMAN UMICRO #### [facility] [address] [place] [address] Dr. Anusha Bettencourt ERUAHDavy A micrscopic examina tion will be performed if indicated. Normal [facility] Comment on above: Performed By: #### Samia GUZMAN UMICRO #### [facility] [address] [place] [address] Dr. Anusha Bettencourt Glucose Ql (U) Negative Normal NEGATIVE [facility] Comment on above: Performed By: #### Saima GUZMAN UMICRO #### [facility] [address] [place] [address] Dr. Anusha Bettencourt Hemoglobin Ql (U) MODERATE Abnormal NEGATIVE [facility] Comment on above: Performed By: #### Samia GUZMAN UMICRO #### [facility] [address] [place] [address] Dr. Anusha Bettencourt Ketones Ql (U) Negative Normal NEGATIVE [facility] Comment on above: Performed By: #### Samia GUZMAN UMICRO #### [facility] [address] [place] [address] Dr. Anusha Bettencourt LEUKOCYTES Negative Normal NEGATIVE [facility] Comment on above: Performed By: #### Samia GUZMAN, UMICRO #### [facility] [address] [place] [address] Dr. Anusha Bettencourt Nitrite Ql (U) Negative Normal NEGATIVE [facility] Comment on above: Performed By: #### Samia GUZMAN UMICRO #### [facility] [address] [place] [address] Dr. Anusha Bettencourt pH (U) 5.5 [pH] Normal 5-9 [facility] Comment on above: Performed By: #### Samia GUZMAN UMICRO #### [facility] [address] [place] [address] Dr. Anusha Bettencourt SPEC GRAVITY 1.025 Normal 1.005-<=1. 025 [facility] Comment on above: Performed By: #### Samia GUZMAN UMICRO #### [facility] [address] [place] [address] Dr. Anusha Bettencourt UA PROTEIN Negative Normal NEGATIVE/ TRACE [facility] Comment on above: Performed By: #### Samia GUZMAN UMICRO #### [facility] [address] [place] [address] Dr. Anusha Bettencourt UR MICRO IND INDICATED Normal [facility] Comment on above: Performed By: #### Samai GUZMAN UMICRO #### [facility] [address] [place] [address] Dr. Anusha Bettencourt Urobilinogen Qn (U) 0.2 {Dana'U}/dL Normal 0.2 - 1. 0 [facility] Comment on above: Performed By: #### Samia GUZMAN UMICRO #### [facility] [address] [place] [address] Dr. Anusha Bettencourt ETHANOL (BLD ALC)on 12-30-19 ALC NOTE NOTE: 80 mg/dl is th e legal limit for a blood alcohol level Normal [facility] Comment on above: Performed By: #### Samia GUZMAN, UMICRO #### [facility] [address] [place] [address] Dr. Anusha Bettencourt Ethanol [Mass/Vol] mg/dL Normal [facility] Comment on above: Performed By: #### E RUR, UMICRO #### [facility] [address] [place] [address] Dr. Anusha Bettencourt LACTATE/LACTIC ACIDon 2022 Lactate [Moles/Vol] 1.1 mmol/L Normal 0.4-1.9 [facility] Comment on above: Performed By: #### L ACT #### [facility] [address] [place] [address] Dr. Anusha Bettencourt LIPASEon 12-30-2022 Lipase [Catalytic activity/Vol] 118.0 U/L Normal 73.0-393.0 [facility] Comment on above: Performed By: #### C RP, YASHIRA, LIPA, CMP, ETH #### [facility] [address] [place] [address] Dr. Anusha Bettencourt PROF 14(COMP METB)on 023 Albumin [Mass/Vol] 3.6 g/dL Normal 3.4-5.0 [facility] Comment on above: Performed By: #### C RP, YASHIRA, LIPA, CMP, ETH #### [facility] [address] [place] [address] Dr. Anusha Bettencourt Albumin/Globulin [Mass ratio] 1.1 {ratio} Normal [facility] Comment on above: Performed By: #### C RP, YASHIRA, LIPA, CMP, ETH #### [facility] [address] [place] [address] Dr. Anusha Bettencourt ALP [Catalytic activity/Vol] 89 U/L Normal 46-116 [facility] Comment on above: Performed By: #### C RP, YASHIRA, LIPA, CMP, ETH #### [facility] [address] [place] [address] Dr. Anusha Bettencourt ALT [Catalytic activity/Vol] 17 U/L Normal 14-59 [facility] Comment on above: Performed By: #### C RP, YASHIRA, LIPA, CMP, ETH #### [facility] [address] [place] [address] Dr. Anusha Bettencourt Anion gap [Moles/Vol] 12.2 mmol/L Normal [facility] Comment on above: Performed By: #### C RP, YASHIRA, LIPA, CMP, ETH #### [facility] [address] [place] [address] Dr. Anusha Bettencourt AST [Catalytic activity/Vol] 15 U/L Normal 15-37 [facility] Comment on above: Performed By: #### C RP, YASHIRA, LIPA, CMP, ETH #### [facility] [address] [place] [address] [address] Anusha Bettencourt Bilirubin [Mass/Vol] 0.2 mg/dL Normal 0.2-1.0 [facility] Comment on above: Performed By: #### C RP, YASHIRA, LIPA, CMP, ETH #### [facility] [address] [place] [address] Dr. Anusha Bettencourt Calcium [Mass/Vol] 8.7 mg/dL Normal 8.5-10.1 [facility] Comment on above: Performed By: #### C RP, YASHIRA, LIPA, CMP, ETH #### [facility] [address] [place] [address] Dr. Anusha Bettencourt Chloride [Moles/Vol] 104 mmol/L Normal 98-107 [facility] Comment on above: Performed By: #### C RP, YASHIRA, LIPA, CMP, ETH #### [facility] [address] [place] [address] Dr. Anusha Bettencourt CO2 [Moles/Vol] 27.4 mmol/L Normal 21.0-32.0 [facility] Comment on above: Performed By: #### C RP, YASHIRA, LIPA, CMP, ETH #### [facility] [address] [place] [address] Dr. Anusha Bettencourt Creatinine [Mass/Vol] 0.76 mg/dL Normal 0.55-1.02 [facility] Comment on above: Performed By: #### C RP, YASHIRA, LIPA, CMP, ETH #### [facility] [address] [place] [address] Dr. Anusha Bettencourt EGFR-AF [place] >60 Normal >=60 [facility] Comment on above: Performed By: #### C RP, YASHIRA, LIPA, CMP, ETH #### [facility] [address] [place] [address] Dr. Anusha Bettencourt EGFR-NON AF [place] >60 Normal >=60 [facility] Comment on above: Performed By: #### C RP, YASHIRA, LIPA, CMP, ETH #### [facility] [address] [place] [address] Dr. Anusha Bettencourt Globulin (S) [Mass/Vol] 3.4 g/dL Normal [facility] Comment on above: Performed By: #### C RP, YASHIRA, LIPA, CMP, ETH #### [facility] [address] [place] [address] Dr. Anusha Bettencourt Glucose [Mass/Vol] 100 mg/dL Normal 74-106 [facility] Comment on above: Performed By: #### C RP, YASHIRA, LIPA, CMP, ETH #### [facility] [address] [place] [address] Dr. Anusha Bettencourt Potassium [Moles/Vol] 3.6 mmol/L Normal 3.5-5.1 [facility] Comment on above: Performed By: #### C RP, YASHIRA, LIPA, CMP, ETH #### [facility] [address] [place] [address] Dr. Anusha Bettencourt Protein [Mass/Vol] 7.0 g/dL Normal 6.4-8.2 [facility] Comment on above: Performed By: #### C RP, YASHIRA, LIPA, CMP, ETH #### [facility] [address] [place] [address] Dr. Anusha Bettencourt Sodium [Moles/Vol] 140 mmol/L Normal 136-145 [facility] Comment on above: Performed By: #### C RP, YASHIRA, LIPA, CMP, ETH #### [facility] [address] [place] [address] Dr. Anusha Bettencourt Urea nitrogen [Mass/Vol] 12.0 mg/dL Normal 7.0-18.0 [facility] Comment on above: Performed By: #### C RP, YASHIRA, LIPA, CMP, ETH #### [facility] [address] [place] [address] Dr. Anusha Bettencourt Urea nitrogen/Creatinine [Mass ratio] 15.8 mg/mg Normal [facility] Comment on above: Performed By: #### C RP, YASHIRA, LIPA, CMP, ETH #### [facility] [address] [place] [address] Dr. Anusha Bettencourt URINE MICROSCOPIC ONLYon BACTERIA TRACE Abnormal NONE SEEN [facility] Comment on above: Performed By: #### Samia ATKINSONR, UMICRO #### [facility] [address] [place] [address] Dr. Anusha Bettencourt Bacteria identified Cx Nom (U) INDICATED Normal [facility] Comment on above: Performed By: #### E DEMETRIOR, UMICRO #### [facility] [address] [place] [address] Dr. Anusha Bettencourt CAST NONE SEEN Normal NONE SEEN [facility] Comment on above: Performed By: #### E RUR, UMICRO #### [facility] [address] [place] [address] Dr. Anusha Bettencourt Crystals LM Nom (Urine sed) NONE SEEN Normal NONE SEEN [facility] Comment on above: Performed By: #### E RUR, UMICRO #### [facility] [address] [place] [address] Dr. Anusha Bettencourt Epithelial cells LM Ql (Urine sed) RARE Normal NONE SEEN /RARE [facility] Comment on above: Performed By: #### E DEMETRIOR, UMICRO #### [facility] [address] [place] [address] Dr. Anusha Bettencourt MUCOUS NONE SEEN Normal NONE SEEN [facility] Comment on above: Performed By: #### Samia ATKINSONR, UMICRO #### [facility] [address] [place] [address] Dr. Anusha Bettencourt RBC NONE SEEN Abnormal 0-2 [facility] Comment on above: Performed By: #### Samia GUZMAN, UMICRO #### [facility] [address] [place] [address] Dr. Anusha Bettencourt WBC 2-5 Abnormal NONE SEEN [facility] Comment on above: Performed By: #### E YONI GUZMAN #### [facility] [address] [address] [address] Anusha Bettencourt SARS-CoV-2 (COVID-19) RNA NA A+probe Ql (Resp)on 08-13-2022 SARS-CoV-2 (COVID-19) RNA LILY+probe Ql (Unsp spec) Negative [facility] [employer] Other COVID/FLU/RSV RT-PCRon 08-09 SARS-CoV-2 (COVID-19) RNA LILY+probe Ql (Unsp spec) Negative [facility] [employer] Other COVID/FLU/RSV RT-PCR Negative [facility] [employer] Other Urine culture routineOrdered By: LEXY BAUM on 08-02-2022 Bacteria identified Cx Nom (U) 2 Days [facility] Complete Blood Count Auto Di ffon 09-22-2021 Basophils (Bld) [#/Vol] 0.0 10*3/uL Normal 0.0-0.2 [facility] Comment on above: Result Comment: PERF ORMED BY: [place] [address] PATHOLOGIST GRAVITY MANAGER MELISA CID M.D. Performed By: #### C BC, CMP #### [facility] [address] [place] [address] [place] Basophils/100 WBC (Bld) 0.5 % Normal . [facility] Comment on above: Performed By: #### C BC, CMP #### [facility] [address] [place] [address] [place] Eosinophils (Bld) [#/Vol] 0.2 10*3/uL Normal 0.0-0.45 [facility] Comment on above: Performed By: #### C BC, CMP #### [facility] [address] [place] [address] [place] Eosinophils/100 WBC (Bld) 2.1 % Normal . [facility] Comment on above: Performed By: #### C BC, CMP #### [facility] [address] Erythrocyte distribution width (RBC) [Ratio] 12.9 % Normal 11.9-15.3 [facility] Comment on above: Performed By: #### C BC, CMP #### [facility] [address] Hematocrit (Bld) [Volume fraction] 39.5 % Normal 34.0-46.4 [facility] Comment on above: Performed By: #### C BC, CMP #### [facility] [address] Hemoglobin (Bld) [Mass/Vol] 13.3 g/dL Normal 11.8-15.4 [facility] Comment on above: Performed By: #### C BC, CMP #### [facility] [address] Lymphocytes (Bld) [#/Vol] 1.8 10*3/uL Normal 1.00-4.8 [facility] Comment on above: Performed By: #### C BC, CMP #### [facility] [address] Lymphocytes/100 WBC (Bld) 23.4 % Normal . [facility] Comment on above: Performed By: #### C BC, CMP #### [facility] [address] MCH (RBC) [Entitic mass] 30.5 pg Normal 24.7-34.3 [facility] Comment on above: Performed By: #### C BC, CMP #### [facility] [address] [place] [address] [place] MCV (RBC) [Entitic vol] 90.7 fL Normal 80-100 [facility] Comment on above: Performed By: #### C BC, CMP #### [facility] [address] Mean Corpuscular HGB Conc 33.6 g/dL Normal 32.0-35.0 [facility] Comment on above: Performed By: #### C BC, CMP #### [facility] [address] [place] [address] [place] Monocytes (Bld) [#/Vol] 0.6 10*3/uL Normal 0.0-0.8 [facility] Comment on above: Performed By: #### C BC, CMP #### [facility] [address] [place] [address] [place] Monocytes/100 WBC (Bld) 8.3 % Normal . [facility] Comment on above: Performed By: #### C BC, CMP #### [facility] [address] [place] [address] [place] Neutrophils (Bld) [#/Vol] 5.2 10*3/uL Normal 1.8-7.7 [facility] Comment on above: Performed By: #### C BC, CMP #### [facility] [address] [place] [id number] [place] Neutrophils/100 WBC (Bld) 65.7 % Normal . [facility] Comment on above: Performed By: #### C BC, CMP #### [facility] [address] [place] [id number] [place] Nucleated RBC/100 WBC (Bld) [Ratio] 0.0 % Normal 0-0.5 [facility] Comment on above: Performed By: #### C BC, CMP #### [facility] [address] [place] [id number] [place] Platelet mean volume (Bld) [Entitic vol] 6.8 fL Normal 6.3-10.7 [facility] Comment on above: Performed By: #### C BC, CMP #### [facility] [address] [place] [address] [place] Platelets (Bld) [#/Vol] 266 10*3/uL Normal 150-450 [facility] Comment on above: Performed By: #### C BC, CMP #### [facility] [address] [place] [address] [place] RBC (Bld) [#/Vol] 4.36 10*6/uL Normal 3.60-5.00 [facility] Comment on above: Performed By: #### C BC, CMP #### [facility] [address] WBC (Bld) [#/Vol] 7.8 10*3/uL Normal 4.5-11.0 [facility] Comment on above: Performed By: #### C BC, CMP #### [facility] [address] [place] [address] [place] Comprehensive Metabolic Pane chuck 09-22-2021 Albumin [Mass/Vol] 3.5 g/dL Normal 3.2-5.5 [facility] Comment on above: Performed By: #### C BC, CMP #### [facility] [address] Albumin/Globulin [Mass ratio] 1.2 {ratio} Normal [facility] Comment on above: Performed By: #### C BC, CMP #### [facility] [address] [place] [id number] [facility] ALP [Catalytic activity/Vol] 62 U/L Normal 32-92 [facility] Comment on above: Performed By: #### C BC, CMP #### [facility] [address] [place] [phone] [place] ALT [Catalytic activity/Vol] 15 U/L Normal 10-60 [facility] Comment on above: Performed By: #### C BC, CMP #### [facility] [address] [place] [phone] [place] AST [Catalytic activity/Vol] 21 U/L Normal 10-42 [facility] Comment on above: Performed By: #### C BC, CMP #### [facility] [address] [place] [id number] [facility] Bilirubin [Mass/Vol] 0.5 mg/dL Normal 0.3-1.2 [facility] Comment on above: Performed By: #### C BC, CMP #### [facility] [address] Calcium [Mass/Vol] 8.8 mg/dL Normal 8.2-10.2 [facility] Comment on above: Performed By: #### C BC, CMP #### [address] Chloride [Moles/Vol] 104 mmol/L Normal 95-114 [facility] Comment on above: Performed By: #### C BC, CMP #### [address] CO2 [Moles/Vol] 26.5 mmol/L Normal 22.0-30.0 [facility] Comment on above: Performed By: #### C BC, CMP #### [address] Creatinine [Mass/Vol] 0.70 mg/dL Normal 0.44-1.03 [facility] Comment on above: Performed By: #### C BC, CMP #### [address] Creatinine Clr Calc Pharmacy 133.62 [facility] Comment on above: Result Comment: PERF ORMED BY: [place] [address] PATHOLOGIST GRAVITY MANAGER MELISA CID M.D. Performed By: #### C BC, CMP #### [address] Estimated GFR ( Rachel > 60 [facility] Comment on above: Result Comment: GFR estimated reference range: According to KDOQI guidelines, <60 ml/min/1.73m2 is sufficient to diagnose a patient with chronic kidney disease. Performed By: #### C BC, CMP #### [place] [address] [place] Estimated GFR (Non- Am > 60 [facility] Comment on above: Performed By: #### C BC, CMP #### [address] Globulin (S) [Mass/Vol] 3.0 g/dL [facility] Comment on above: Performed By: #### C BC, CMP #### [place] [address] [place] Glucose [Mass/Vol] 111 mg/dL High 70-100 [facility] Comment on above: Result Comment: [place] Glucose Reference Range is dependent on time and content of last meal. Glucose of more than 200 mg/dL in a nonstressed, ambulatory subject supports the diagnosis of Diabetes Mellitus. ADA recommended reference range Performed By: #### C BC, CMP #### [facility] [address] [place] [address] [place] Potassium [Moles/Vol] 4.0 mmol/L Normal 3.5-5.1 [facility] Comment on above: Performed By: #### C BC, CMP #### [facility] [address] [place] [address] [place] Protein [Mass/Vol] 6.5 g/dL Normal 6.1-7.9 [facility] Comment on above: Performed By: #### C BC, CMP #### [facility] [address] [place] [phone] [place] Sodium [Moles/Vol] 138 mmol/L Normal 136-146 [facility] Comment on above: Performed By: #### C BC, CMP #### [facility] [address] [place] [address] [place] Urea nitrogen [Mass/Vol] 11 mg/dL Normal 9-23 [facility] Comment on above: Performed By: #### C BC, CMP #### [facility] [address] [place] [phone] [place] XR chest 1V portableon 09-[address] [facility] [address] [place] [address] [place] [address] XRay Report Signed Patient: Garo Oliveros MR#: [id number] : 1985 Acct:[id number] Age/Sex: 35 / F ADM Date: 09/20/21 Loc: Room: [address] [place] [address] Type: ADM IN Attending Dr: Napoleon Rios MD Ordering Provider: EULALIA Banks Date of Service: 09/22/21 XR/XR chest 1V portable: ECT clearance Copies to: MD Yashira Madrid KASSIDY-C Chest 09/22/2021. CLINICAL DATA: ECT clearance. FINDINGS: A single portable frontal view of the chest was obtained. No prior study is available for comparison. The cardiac silhouette is normal in size. The pulmonary vasculature is within normal limits. No pulmonary consolidation or collapse is identified. No pneumothorax or pleural effusion is seen. XR/XR chest 1V portable IMPRESSION: No acute cardiopulmonary disease. Impression dictated by: Sean Esquivel Jr., M.D.09/22/2021 1:51 PM Dictation Location: [place] [address] Transcribed By: [facility] 09/22/21 1351 Dictated By: Sean Esquivel Jr, MD 09/22/21 1350 Signed By: 09/22/21 1351 Normal [facility] Lipid Panelon 09-21-2021 Cholesterol [Mass/Vol] 183 mg/dL Normal 140-[address] [facility] Comment on above: Result Comment: Chol less than 200 mg/dl low risk Chol 201-239 mg/dl borderline risk Chol 240 mg/dl and greater high risk Performed By: #### T SH3 wRFLX, LIPID, [id number] #### [facility] [address] [place] [address] Cholesterol in HDL [Mass/Vol] 47 mg/dL Normal 35-85 [facility] Comment on above: Result Comment: HDL CHOL ATP-III CLASSIFICATION Cardiovascular Risk HDL > or equal to 60 mg/dL LOW HDL < 40 mg/dL HIGH Performed By: #### T SH3 wRFLX, LIPID, [id number] #### [facility] [address] [place] [address] [facility] Cholesterol.total/Chol esterol in HDL [Mass ratio] 3.9 {ratio} Normal <5.0 [facility] Comment on above: Performed By: #### T SH3 wRFLX, LIPID, [id number] #### [facility] [address] [place] [id number] [facility] LDL Cholesterol,Calculated 110 mg/dL High 0-100 [facility] Comment on above: Result Comment: LDL ATP III CLASSIFICATION LDL less than 100 mg/dL Optimal LDL 100-129 mg/dL Near or above optimal LDL 130-159 mg/dL Borderline high LDL 160-189 mg/dL High LDL greater than 189 mg/dL Very high Performed By: #### T SH3 wRFLX, LIPID, [id number] #### [facility] [address] Triglyceride w/Reflex 132 mg/dL Normal 35-149 [facility] Comment on above: Result Comment: TRIG ATP III CLASSIFICATION TRIG less than 150 mg/dL Normal TRIG 150-199 mg/dL Borderline high TRIG 200-500 mg/dL High TRIG greater than 500 mg/dL Very high Standard traceable to the Center for Disease Conrtrol and Prevention (CDC) test method. Performed By: #### T SH3 wRFLX, LIPID, [id number] #### [facility] [address] VLDL CHOLESTEROL 26 mg/dL Normal [facility] Comment on above: Performed By: #### T SH3 wRFLX, LIPID, [id number] #### [facility] [address] Thyroid Stim Hormone w/Rflxo n 09-21-2021 Thyroid Stim Hormone w/Rflx 2.37 u[iU]/mL Normal 0.45-5.33 [facility] Comment on above: Performed By: #### T SH3 wRFLX, LIPID, [id number] #### [facility] [address] [place] [address] Vitamin D 25 Hydroxy Totalon 09-21-2021 Vitamin D 25 Hydroxy Total 29.2 ng/mL Low 30-100 [facility] Comment on above: Result Comment: CINDI MIN D STATUS 25(OH)VITAMIN D RANGE (ng/mL) Deficient <20 Insufficient 20 to <30 Sufficient 30 to 100 Reference: Valentin MF,Katerina NC, Hector-Juan ATKINS, et al. Evaluation,treatment, and prevention of vitamin D deficiency; an Endocrine Society clinical practice guideline. JCEM. 2010; 96(7):1911-30. PERFORMED BY: [place] [address] PATHOLOGIST GRAVITY MANAGER MELISA CID M.D. Performed By: #### T SH3 wRFLX, LIPID, [id number] #### [facility] [address] Acetaminophenon 08-21-2021 Acetaminophen [Mass/Vol] ug/mL Low 10-30 [facility] Comment on above: Performed By: #### S ALI, CDP, ALCB, CP, ACET #### [facility] [address] [place] [address] Engraver Signature: Fernando Hernandez DO CBC with Diffon 08-21-2021 Abs. Basophil 0.00 k/uL Normal 0.0-0.2 [facility] Comment on above: Performed By: #### S ALI, CDP, ALCB, CP, ACET #### [facility] [place] [address] Engraver Signature: Fernando Hernandez DO Abs.Neutrophil (Seg) 3.30 k/uL Normal 1.3-9.1 [facility] Comment on above: Performed By: #### S ALI, CDP, ALCB, CP, ACET #### [facility] [address] [place] [address] Engraver Signature: Fernando Hernandez DO Basophils/100 WBC (Bld) 1 % Normal 0-2 [facility] Comment on above: Performed By: #### S ALI, CDP, ALCB, CP, ACET #### [facility] [place] [address] Engraver Signature: Fernando Hernandez DO Eosinophils (Bld) [#/Vol] 0.20 10*3/uL Normal 0.0-0.4 [facility] Comment on above: Performed By: #### S ALI, CDP, ALCB, CP, ACET #### [facility] [address] [place] [address] Engraver Signature: Fernando Hernandez DO Eosinophils/100 WBC (Bld) 4 % Normal 0-4 [facility] Comment on above: Performed By: #### S ALI, CDP, ALCB, CP, ACET #### [facility] [address] [place] [address] Engraver Signature: Fernando Hernandez DO Erythrocyte distribution width (RBC) [Ratio] 12.9 % Normal 11.5-14.9 [facility] Comment on above: Performed By: #### S ALI, CDP, ALCB, CP, ACET #### [facility] [address] [place] [address] Engraver Signature: Fernando Hernandez DO Hematocrit (Bld) [Volume fraction] 38.8 % Normal 36-46 [facility] Comment on above: Performed By: #### S ALI, CDP, ALCB, CP, ACET #### [facility] [address] [place] [address] Engraver Signature: Fernando Hernandez DO Hemoglobin (Bld) [Mass/Vol] 12.9 g/dL Normal 12.0-16.0 [facility] Comment on above: Performed By: #### S ALI, CDP, ALCB, CP, ACET #### [facility] [place] [address] Engraver Signature: Fernando Hernandez DO Lymphocytes (Bld) [#/Vol] 2.50 10*3/uL Normal 1.0-4.8 [facility] Comment on above: Performed By: #### S ALI, CDP, ALCB, CP, ACET #### [facility] [address] [place] [address] Engraver Signature: Fernando Hernandez DO Lymphocytes/100 WBC (Bld) 37 % Normal 24-44 [facility] Comment on above: Performed By: #### S ALI, CDP, ALCB, CP, ACET #### [facility] [address] [place] [address] Engraver Signature: Fernando Hernandez DO MCH (RBC) [Entitic mass] 30.5 pg Normal 26-34 [facility] Comment on above: Performed By: #### S ALI, CDP, ALCB, CP, ACET #### [facility] [place] [address] Engraver Signature: Fernando Hernandez DO MCHC (RBC) [Mass/Vol] 33.2 g/dL Normal 31-37 [facility] Comment on above: Performed By: #### S GODFREY, CDP, ALCB, CP, ACET #### [facility] [address] [place] [address] Engraver Signature: Fernando Hernandez DO MCV (RBC) [Entitic vol] 91.9 fL Normal 80-100 [facility] Comment on above: Performed By: #### S GODFREY, CDP, ALCB, CP, ACET #### [facility] [address] [place] [address] Engraver Signature: Fernando Hernandez DO Monocytes (Bld) [#/Vol] 0.60 10*3/uL Normal 0.1-1.3 [facility] Comment on above: Performed By: #### S GODFREY, CDP, ALCB, CP, ACET #### [facility] [address] [place] [address] Engraver Signature: Fernando Hernandez DO Monocytes/100 WBC (Bld) 9 % High 1-7 [facility] Comment on above: Performed By: #### S ALI, CDP, ALCB, CP, ACET #### [facility] [place] [address] Engraver Signature: Fernando Hernandez DO Neutrophil (Seg) 49 % Normal 36-66 [facility] Comment on above: Performed By: #### S GODFREY, CDP, ALCB, CP, ACET #### [facility] [address] [place] [address] Engraver Signature: Fernando Hernandez DO Platelet mean volume (Bld) [Entitic vol] 7.2 fL Normal 6.0-12.0 [facility] Comment on above: Performed By: #### S ALI, CDP, ALCB, CP, ACET #### [facility] [address] [place] [address] Engraver Signature: Fernando Hernandez DO Platelets (Bld) [#/Vol] 221 10*3/uL Normal 150-450 [facility] Comment on above: Performed By: #### S ALI, CDP, ALCB, CP, ACET #### [facility] [address] [facility] [place] [address] Engraver Signature: Fernando Hernandez DO RBC (Bld) [#/Vol] 4.22 10*6/uL Normal 4.0-5.2 [facility] Comment on above: Performed By: #### S ALI, CDP, ALCB, CP, ACET #### [facility] [address] [facility] [place] [address] Engraver Signature: Fernando Hernandez DO WBC (Bld) [#/Vol] 6.7 10*3/uL Normal 3.5-11.0 [facility] Comment on above: Performed By: #### S ALI, CDP, ALCB, CP, ACET #### [facility] [address] [facility], [place] [address] Engraver Signature: Fernando Hernandez DO Abs.Imm.Granulocyte NOT REPORTED Normal 0.00-0.30 [facility] Comment on above: Performed By: #### S ALI, CDP, ALCB, CP, ACET #### [facility] [address] [facility], [place] [address] Engraver Signature: Fernando Hernandez DO Auto Diff Performed NOT REPORTED Normal [facility] Comment on above: Performed By: #### S ALI, CDP, ALCB, CP, ACET #### [facility] [address] [facility] [place] [address] Engraver Signature: Fernando Hernandez DO Immature Granulocyte NOT REPORTED Normal 0 Me [facility] Comment on above: Performed By: #### S ALI, CDP, ALCB, CP, ACET #### [facility] [place] [address] Engraver Signature: Fernando Hernandez DO NRBC Automated NOT REPORTED Normal [facility] Comment on above: Performed By: #### S ALI, CDP, ALCB, CP, ACET #### [facility] [address] [place] [address]. [place] [address] Engraver Signature: Fernando Hernandez DO Platelet Estimate NOT REPORTED Normal [facility] Comment on above: Performed By: #### S ALI, CDP, ALCB, CP, ACET #### [facility] [address] [place] [address]. [place] [address] Engraver Signature: Fernando Hernandez DO RBC morphology finding Nom (Bld) NOT REPORTED Normal [facility] Comment on above: Performed By: #### S ALI, CDP, ALCB, CP, ACET #### [facility] [address] [place] [address] Engraver Signature: Fernando Hernandez DO WBC Morphology NOT REPORTED Normal [facility] Comment on above: Performed By: #### S ALI, CDP, ALCB, CP, ACET #### [facility] [address] [place] [address] Engraver Signature: Fernando Hernandez DO Comp Metabolic Profon 2020 (cont.) Normal [facility] Comment on above: Result Comment: Aver age GFR for 30-39 years old: 107 mL/min/1.73sq m Chronic Kidney Disease: <60 mL/min/1.73sq m Kidney failure: <15 mL/min/1.73sq m eGFR calculated using average adult body mass. Additional eGFR calculator available at: http://www.[employer]/multiple_crcl_2012.htm Performed By: #### S ALI, CDP, ALCB, CP, ACET #### [facility] [address] [place] [address] Engraver Signature: Fernando Hernandez DO Albumin [Mass/Vol] 3.8 g/dL Normal 3.5-5.2 [facility] Comment on above: Performed By: #### S ALI, CDP, ALCB, CP, ACET #### [facility] [place] [address] Engraver Signature: Fernando Hernandez DO Alkaline Phos 69 U/L Normal 35-104 [facility] Comment on above: Performed By: #### S GODFREY, CDP, ALCB, CP, ACET #### [facility] [place] [address] Engraver Signature: Fernando Hernandez DO ALT [Catalytic activity/Vol] 9 U/L Normal 5-33 [facility] Comment on above: Performed By: #### S GODFREY, CDP, ALCB, CP, ACET #### [facility] [place] [address] Engraver Signature: Fernando Hernandez DO Anion gap [Moles/Vol] 8 mmol/L Low 9-17 [facility] Comment on above: Performed By: #### S ALI, CDP, ALCB, CP, ACET #### [facility] [address] [place] [address] Engraver Signature: Fernando Hernandez DO AST [Catalytic activity/Vol] 10 U/L Normal <32 [facility] Comment on above: Performed By: #### S ALI, CDP, ALCB, CP, ACET #### [facility] [address] [place] [address] Engraver Signature: Fernando Hernandez DO Bilirubin [Mass/Vol] 0.18 mg/dL Low 0.3-1.2 [facility] Comment on above: Performed By: #### S ALI, CDP, ALCB, CP, ACET #### [facility] [address] [place] [address] Engraver Signature: Fernando Hernandez DO Calcium [Mass/Vol] 8.5 mg/dL Low 8.6-10.4 [facility] Comment on above: Performed By: #### S ALI, CDP, ALCB, CP, ACET #### [facility] [address] [place] [address] Engraver Signature: Fernando Hernandez DO Chloride [Moles/Vol] 108 mmol/L High 98-107 [facility] Comment on above: Performed By: #### S ALI, CDP, ALCB, CP, ACET #### [facility] [address] [place] [address] Engraver Signature: Fernando Hernandez DO CO2 [Moles/Vol] 25 mmol/L Normal 20-31 [facility] Comment on above: Performed By: #### S ALI, CDP, ALCB, CP, ACET #### [facility] [address] [place] [address] Engraver Signature: Fernando Hernandez DO Creatinine [Mass/Vol] 0.61 mg/dL Normal 0.50-0.90 [facility] Comment on above: Performed By: #### S ALI, CDP, ALCB, CP, ACET #### [facility] [address] [place] [address] Engraver Signature: Fernando Hernandez DO GFR, Amer >60 Normal >60 [facility] Comment on above: Performed By: #### S ALI, CDP, ALCB, CP, ACET #### [facility] [address] [place] [address] Engraver Signature: Fernando Hernandez DO GFR,non Amer >60 Normal >60 [facility] Comment on above: Performed By: #### S ALI, CDP, ALCB, CP, ACET #### [facility] [address] [place] [address] Engraver Signature: Fernando Hernandez DO Glucose [Mass/Vol] 112 mg/dL High 70-99 [facility] Comment on above: Performed By: #### S ALI, CDP, ALCB, CP, ACET #### [facility] [address] [place] [address] Engraver Signature: Fernando Hernandez DO Potassium [Moles/Vol] 4.1 mmol/L Normal 3.7-5.3 [facility] Comment on above: Performed By: #### S ALI, CDP, ALCB, CP, ACET #### [facility] [place] [address] Engraver Signature: Fernando Hernandez DO Protein [Mass/Vol] 6.2 g/dL Low 6.4-8.3 [facility] Comment on above: Performed By: #### S ALI, CDP, ALCB, CP, ACET #### [facility] [address] [place] [address] Engraver Signature: Fernando Hernandez DO Sodium [Moles/Vol] 141 mmol/L Normal 135-144 [facility] Comment on above: Performed By: #### S ALI, CDP, ALCB, CP, ACET #### [facility] [place] [address] Engraver Signature: Fernando Hernandez DO Urea nitrogen [Mass/Vol] 11 mg/dL Normal 6-20 [facility] Comment on above: Performed By: #### S ALI, CDP, ALCB, CP, ACET #### [facility] [address] [place] [address] Engraver Signature: Fernando Hernandez DO Albumin/Glob Ratio NOT REPORTED Normal 1.0-2.5 [facility] Comment on above: Performed By: #### S ALI, CDP, ALCB, CP, ACET #### [facility] [address] [place] [address] Engraver Signature: Fernando Hernandez DO BUN/CRE Ratio NOT REPORTED Normal 9-20 [facility] Comment on above: Performed By: #### S ALI, CDP, ALCB, CP, ACET #### [facility] [address] [place] [address] Engraver Signature: Fernando Hernandez DO Staging: NOT REPORTED Normal [facility] Comment on above: Performed By: #### S ALI, CDP, ALCB, CP, ACET #### [facility] [address] [place] [address] Engraver Signature: Fernando Hernandez DO Drug Scr, Abuse, Uron 2020 Amphetamine(s),Ur Negative Normal NEG [facility] Comment on above: Result Comment: (Positive cutoff 1000 ng/mL) Performed By: #### U HCG, JAIMEE #### [facility] [address] [place] [address] Engraver Signature: Fernando Hernandez DO Barbiturate(s),Ur Negative Normal NEG [facility] Comment on above: Result Comment: (Positive cutoff 200 ng/mL) Performed By: #### U HCG, JAIMEE #### [facility] [address] Engraver Signature: Fernando Hernandez DO Benzodiazepine(s) Negative Normal NEG [facility] Comment on above: Result Comment: (Positive cutoff 200 ng/mL) Performed By: #### U HCG, JAIMEE #### [facility] [facility] [address] [place] [id number] Engraver Signature: Fernando Hernandez DO Cannabinoid(s),Ur Positive Abnormal NEG [facility] Comment on above: Result Comment: (Positive cutoff 50 ng/mL) Performed By: #### U HCG, JAIMEE #### [facility] [address] [place] [id number] Engraver Signature: Fernando Hernandez DO Cocaine Metabolite Negative Normal NEG [facility] Comment on above: Result Comment: (Positive cutoff 300 ng/mL) Performed By: #### U HCG, JAIMEE #### [facility] [address] [place] [address] [id number] Engraver Signature: Fernando Hernandez DO Interpretive Info Assay provides medic al screening only. The absence of expected drug(s) and/or Normal [facility] Comment on above: Result Comment: meta bolite(s) may indicate diluted or adulterated urine, limitations of testing or timing of collection. Testing for legal purposes should be confirmed by another method. To request confirmation of test result, please call the lab within 7 days of sample submission. Performed By: #### U HCG, JAIMEE #### [facility] [address] [place] [address] 11262 Engraver Signature: Fernando Hernandez DO Methadone Ql (U) Negative Normal NEG [facility] Comment on above: Result Comment: (Positive cutoff 300 ng/mL) Performed By: #### U HCG, JAIMEE #### [facility] [address] [place] [address] [phone] Engraver Signature: Fernando Hernandez DO Opiate(s), Ur Negative Normal NEG [facility] Comment on above: Result Comment: (Positive cutoff 300 ng/mL) Performed By: #### U HCG, JAIMEE #### [facility] [address] [place] [address] 48754 Engraver Signature: Fernando Hernandez DO Oxycodone, Urine Negative Normal NEG [facility] Comment on above: Result Comment: (Positive cutoff 100 ng/mL) Performed By: #### U HCG, JAIMEE #### [facility] [address] [place] [address] [phone] Engraver Signature: Fernando Hernandez DO Phencyclidine, Ur Negative Normal NEG [facility] Comment on above: Result Comment: (Positive cutoff 25 ng/mL) Performed By: #### U HCG, JAIMEE #### [facility] [address] [place] [address]506 Engraver Signature: Fernando Hernandez DO Buprenorphrine, Ur NOT REPORTED Normal NEG [facility] Comment on above: Performed By: #### U HCG, JAIMEE #### [facility] [address] [place] [address] 04171 Engraver Signature: Fernando Hernandez DO MDMA, Urine NOT REPORTED Normal NEG [facility] Comment on above: Performed By: #### U HCG, JAIMEE #### [facility] [address] [place] [address] [id number] Engraver Signature: Fernando Hernandez DO Methamphetamine, Ur NOT REPORTED Normal NEG [facility] Comment on above: Performed By: #### U HCG, JAIMEE #### [facility] [address] [place] [address] [phone] Engraver Signature: Fernando Hernandez DO Propoxyphene,Urine NOT REPORTED Normal NEG [facility] Comment on above: Performed By: #### U HCG, JAIMEE #### [facility] [address] [facility] [place] [address] Engraver Signature: Fernando Hernandez DO Tricyclic antidepressants Screen Ql (U) NOT REPORTED Normal NEG [facility] Comment on above: Performed By: #### U HCG, JAIMEE #### [facility] [address] [facility] [place] [address] Engraver Signature: Fernando Hernandez DO Ethanol Alcoholon 4 Ethanol [Mass/Vol] mg/dL Normal <10 [facility] Comment on above: Performed By: #### S ALI, CDP, ALCB, CP, ACET #### [facility] [address] [facility] [place] [address] Engraver Signature: Fernando Hernandez DO Ethanol percent <0.010 Normal [facility] Comment on above: Performed By: #### S ALI, CDP, ALCB, CP, ACET #### [facility] [facility] [place] [address] Engraver Signature: Fernando Hernandez DO HCG, ,Urineon 08-215 Beta HCG ( test) Ql (U) Negative Normal NEG [facility] Comment on above: Result Comment: Spec imens with hCG levels near the threshold of the test (25 mIU/mL) may give a negative or indeterminate result. In such cases, another test should be performed with a new specimen in 48-72 hours. If early is suspected clinically in this setting, correlation with quantitative serum b-hCG level is suggested. Performed By: #### U HCG, JAIMEE #### [facility] [address] [facility] [place] [address] Engraver Signature: Fernando Hernandez DO [id number] 08-21-2021 SARS-CoV-2 (COVID-19) RNA LILY+probe Ql (Unsp spec) Not detected Normal NOTDET [facility] Comment on above: Result Comment: Rapid NAAT: The specimen is NEGATIVE for SARS-CoV-2, the novel coronavirus associated with COVID-19. The ID NOW COVID-19 assay is designed to detect the virus that causes COVID-19 in patients with signs and symptoms of infection who are suspected of COVID-19. An individual without symptoms of COVID-19 and who is not shedding SARS-CoV-2 virus would expect to have a negative (not detected) result in this assay. Negative results should be treated as presumptive and, if inconsistent with clinical signs and symptoms or necessary for patient management, should be tested with an alternative molecular assay. Negative results do not preclude SARS-CoV-2 infection and should not be used as the sole basis for patient management decisions. Fact sheet for Healthcare Providers: https://www.fda.gov/media/951783/download Fact sheet for Patients: https://www.fda.gov/media/002739/download Methodology: Isothermal Nucleic Acid Amplification Performed By: #### C OVRB #### [facility] [address] [facility] [place], [place] [id number] Engraver Signature: Fernando Hernandez DO Salicylateon 08-21-2021 Salicylate <1 Low 3-10 [facility] Comment on above: Performed By: #### S ALI, CDP, ALCB, CP, ACET #### [facility] [address] [facility] [place] [address] Engraver Signature: Fernando Hernandez DO ED Noteon 08-12-2018 HIM IP Note OR Floor Supervisor Normal [facility] ED Provider Noteon 8 HIM IP Note OR Floor Supervisor Normal [facility] Vital Signs Date Time Vital Sign Value Performing Clinician Facility 09-28-2023 13:00-0500 Diastolic blood pressure 52 mm[Hg] PHYSICIAN [facility] 09-28-2023 13:00-0500 Heart rate 64 /min PHYSICIAN [facility] 09-28-2023 13:00-0500 SaO2% (BldA) [Mass fraction] 97 % PHYSICIAN [facility] 09-28-2023 13:00-0500 Systolic blood pressure 106 mm[Hg] PHYSICIAN NO [facility] 09-28-2023 12:34-0500 Respiratory rate 16 /min PHYSICIAN NO [facility] 09-28-2023 07:34-0500 Body height 162.56 cm PHYSICIAN NO [facility] 09-28-2023 07:34-0500 Body temperature 99 [degF] PHYSICIAN NO [facility] 09-28-2023 07:34-0500 Body weight 105 kg PHYSICIAN NO [facility] 01-02-2023 10:55-0500 Body height 162.56 cm Ines Atkins Other [facility] [employer] Other 01-02-2023 10:55-0500 Body mass index (BMI) [Ratio] 42.05 kg/m2 Ines Atkins Other [facility] Other 01-02-2023 10:55-0500 Body temperature 98.1 [degF] Ines Atkins Other [facility] Other 01-02-2023 10:55-0500 Body weight 111.13 kg Ines Atkins Other [facility] Other 01-02-2023 10:55-0500 Respiratory rate 18 /min Ines Atkins Other [facility] Other 01-02-2023 10:55-0500 SaO2% (BldA) [Mass fraction] 96 % Ines Atkins Other [facility] Other 08-13-2022 12:00-0400 Body height 162.56 cm Ines Atkins Other [facility] Other 08-13-2022 12:00-0400 Body mass index (BMI) [Ratio] 42.05 kg/m2 Ines Atkins Other [facility] Other 08-13-2022 12:00-0400 Body temperature 100.1 [degF] Ines Atkins Other [facility] Other 08-13-2022 12:00-0400 Body weight 111.13 kg Ines Atkins Other [facility] Other 08-13-2022 12:00-0400 Respiratory rate 20 /min Ines Atkins Other [facility] Other 08-13-2022 12:00-0400 SaO2% (BldA) [Mass fraction] 96 % Ines Atkins Other [facility] Other 08-08-2022 19:45-0400 Body height 162.56 cm Daniela Mccain Other [facility] Other 08-08-2022 19:45-0400 Body mass index (BMI) [Ratio] 41.19 kg/m2 Daniela Mccain Other [facility] Other 08-08-2022 19:45-0400 Body temperature 98.4 [degF] Daniela Mccain Other [facility] Other 08-08-2022 19:45-0400 Body weight 108.86 kg Daniela Mccain Other [facility] Other 08-08-2022 19:45-0400 Respiratory rate 18 /min Daniela Mccain Other [facility] Other 08-08-2022 19:45-0400 SaO2% (BldA) [Mass fraction] 96 % Daniela Mccain Other [facility] Other 04-29-2022 09:30-0400 Body height 162.56 cm Magnolia Scally Other [facility] Other 04-29-2022 09:30-0400 Body mass index (BMI) [Ratio] 42.29 kg/m2 Magnolia Scally Other [facility] Other 04-29-2022 09:30-0400 Body weight 111.77 kg Magnolia Scally Other [facility] Other 04-29-2022 09:30-0400 Diastolic blood pressure 67 mm[Hg] Magnolia Scally Other [facility] Other 04-29-2022 09:30-0400 Respiratory rate 18 /min Magnolia Scally Other [facility] Other 04-29-2022 09:30-0400 SaO2% (BldA) [Mass fraction] 97 % Magnolia Scally Other [facility] Other 04-29-2022 09:30-0400 Systolic blood pressure 94 mm[Hg] Magnolia Scally Other [facility] Other 04-07-2022 15:30-0400 Body height 162.56 cm Lexy Baum Other [facility] Other 04-07-2022 15:30-0400 Body mass index (BMI) [Ratio] 42.56 kg/m2 Lexy Baum Other [facility] Other 04-07-2022 15:30-0400 Body weight 112.49 kg Lexy Baum Other [facility] Other 04-07-2022 15:30-0400 Respiratory rate 18 /min Lexy Baum Other [facility] Other 04-07-2022 15:30-0400 SaO2% (BldA) [Mass fraction] 98 % Lexy Baum Other [facility] Other 04-03-2022 14:05-0400 Body height 162.56 cm Lexy Baum Other [facility] Other 04-03-2022 14:05-0400 Body mass index (BMI) [Ratio] 42.56 kg/m2 Lexy Baum Other [facility] Other 04-03-2022 14:05-0400 Body temperature 97 [degF] Lexy Baum Other [facility] Other 04-03-2022 14:05-0400 Body weight 112.49 kg Lexy Baum Other [facility] Other 04-03-2022 14:05-0400 Diastolic blood pressure 36 mm[Hg] Lexy Baum Other [facility] Other 04-03-2022 14:05-0400 Respiratory rate 18 /min Lexy Baum Other [facility] Other 04-03-2022 14:05-0400 SaO2% (BldA) [Mass fraction] 97 % Lexy Baum Other [facility] Other 04-03-2022 14:05-0400 Systolic blood pressure 124 mm[Hg] Lexy Baum Other [facility] Other NEGATED: Highlighted row BMI (Body Mass Index) David Britton [facility] NEGATED: Highlighted row BMI (Body Mass Index) David [facility] NEGATED: Highlighted row BMI (Body Mass Index) David [facility] NEGATED: Highlighted row BMI (Body Mass Index) David Britton [facility] NEGATED: Highlighted row Body Temperature David Britton [facility] NEGATED: Highlighted row Body Temperature David Britton [facility] NEGATED: Highlighted row Body Temperature David Britton [facility] NEGATED: Highlighted row Body Temperature David Britt[facility] NEGATED: Highlighted row Body weight David Britton [facility] NEGATED: Highlighted row Body weight David Britton [facility] NEGATED: Highlighted row Body weight David Britton [facility] NEGATED: Highlighted row Body weight David Britton [facility] NEGATED: Highlighted row BP Diastolic David Britton [facility] NEGATED: Highlighted row BP Diastolic David Britton [facility] NEGATED: Highlighted row BP Diastolic David Britton [facility] NEGATED: Highlighted row BP Diastolic David Britton [facility] NEGATED: Highlighted row BP Systolic David Britton [facility] NEGATED: Highlighted row BP Systolic David Britton [facility] NEGATED: Highlighted row BP Systolic David Britton [facility] NEGATED: Highlighted row BP Systolic David Britton [facility] NEGATED: Highlighted row Height David Britton [facility] NEGATED: Highlighted row Height David Britton [facility] NEGATED: Highlighted row Height David Britton [facility] NEGATED: Highlighted row Height David Britton [facility] NEGATED: Highlighted row Pulse (Heart Rate) David Britton [facility] NEGATED: Highlighted row Pulse (Heart Rate) David [facility] NEGATED: Highlighted row Pulse (Heart Rate) David Britton [facility] NEGATED: Highlighted row Pulse (Heart Rate) David [facility] NEGATED: Highlighted row Pulse Oximetry [facility] NEGATED: Highlighted row Pulse Oximetry David [facility] NEGATED: Highlighted row Pulse Oximetry David [facility] NEGATED: Highlighted row Pulse Oximetry [facility] NEGATED: Highlighted row Respiratory Rate David [facility] NEGATED: Highlighted row Respiratory Rate David [facility] NEGATED: Highlighted row Respiratory Rate David [facility] NEGATED: Highlighted row Respiratory Rate David [facility] Encounters Encounter Date Encounter Type Care Provider Facility Start: 04-26-2024 End: 04-26-2024 Emergency department patient visit NO PCP NO PCP [facility] Start: 12-14-2023 Telephone encounter Annetta Hager [facility] Start: 09-28-2023 End: 09-28-2023 Emergency department patient visit Sneha Amaral Facility:[facility] Start: 09-28-2023 End: 09-28-2023 Emergency department patient visit PHYSICIAN NO [facility] Work Phone: Start: 01-02-2023 End: 01-02-2023 ambulatory Ines Atkins Other [facility] Other Start: 01-02-2023 Office outpatient visit 15 minutes Ines Milly [facility] Start: 12-30-2022 End: 12-30-2022 ambulatory PORTER ADKINS Facility: Start: 08-25-2022 End: 08-25-2022 ambulatory Lexy Baum Other [facility] Other Start: 08-25-2022 Telephone encounter Lexy jaquez [facility] Start: 08-13-2022 End: 08-13-2022 ambulatory Ines Milly Other [facility] Other Start: 08-13-2022 Office outpatient visit 15 minutes Ines Milly [facility] Start: 08-08-2022 End: 08-08-2022 ambulatory Daniela Mccain Other [facility] Other Start: 08-08-2022 Office outpatient visit 25 minutes Daniela Mccain [facility] [address] Start: 07-31-2022 End: 07-31-2022 Departed Referred BILLING CHECKER-C Lexy Baum Work Phone: [facility] [place] Start: 06-27-2022 End: 06-27-2022 ambulatory Julita Rogel Other [facility] Other Start: 06-27-2022 Patient encounter procedure Julita Juan F [facility] Start: 05-09-2022 End: 05-09-2022 ambulatory Lexy Baum Other [facility] Other Start: 05-09-2022 Telephone encounter Lexy jaquez [facility] Start: 05-06-2022 End: 05-06-2022 ambulatory Magnolia Ugalde Other [facility] Other Start: 05-06-2022 Telephone encounter Magnolia Glover [facility] Start: 04-29-2022 End: 04-29-2022 ambulatory Magnolia Ugalde Other [facility] Other Start: 04-29-2022 Nutrition therapy Magnolia Ugalde [facility] Start: 04-07-2022 End: 04-07-2022 ambulatory Lexy Baum Other [facility] Other Start: 04-07-2022 Office outpatient visit 15 minutes Lexy Baum [facility] Start: 04-03-2022 End: 04-03-2022 ambulatory Lexy Baum Other [facility] Other Start: 04-03-2022 Office outpatient visit 15 minutes Lexy Baum [facility] Start: 04-03-2022 Telephone encounter Lexy Sia gisele [facility] Start: 12-03-2021 End: 12-03-2021 ambulatory Adi Brower Other [facility] Other Start: 12-03-2021 Telephone encounter Adi [facility] Start: 12-02-2021 End: 12-02-2021 ambulatory Adi Brower Other [facility] Other Start: 12-02-2021 Telephone encounter Adi [facility] Start: 09-22-2021 Patient encounter status BILLING CHECKER-C Lexy Savageault Work Phone: [facility] Start: 08-21-2021 End: 08-27-2021 Evaluation and management of inpatient [facility] Start: 01-27-2019 End: 01-28-2019 Patient encounter procedure DEFAULT PHYSICIAN [facility] Start: 08-12-2018 End: 08-12-2018 Emergency department patient visit [facility] Start: 03-07-2016 End: 03-08-2016 Emergency department patient visit [facility] Start: 08-08-2014 End: 08-08-2014 Admission to day surgery [facility] Start: 10-28-2005 Patient encounter procedure [facility] Start: 10-16-2005 End: 11-15-2005 Discharged Recurring [facility] Start: 04-04-2005 Patient encounter procedure [facility] Start: 03-28-2005 End: 04-15-2005 Discharged Recurring [facility] Start: 12-17-2003 End: 01-14-2004 Discharged Recurring [facility] Start: 11-23-2003 End: 12-16-2003 Discharged Recurring [facility] Start: 10-16-2000 End: 12-16-2000 Discharged Recurring [facility] Procedures Date Procedure Procedure Detail Performing Clinician Start: 09-28-2023 SARS-CoV-2, Influenz a & RSV (PCR) PHYSICIAN NO FAMILY Start: 09-28-2023 CT of abdomen and pelvis without contrast PHYSICIAN NO FAMILY Start: 09-28-2023 Plain chest X-ray PHYSI RASHMI NO FAMILY Start: 10-30-2021 Adult depression screening assessment Annetta Hager CMA Start: 12-12-2019 H/O: surgery S/P nasal septoplasty J deshaun Hager CMA Urine culture BILLING CHECKER-C Comfort Baum Work Phone: Plan of Treatment Date Care Activity Detail Author Start: 02-15-2028 DTaP,Tdap and Td Vaccines (3 - Td or Tdap) DTaP,Tdap and Td Vaccines (3 - Td or Tdap) [facility] Start: 10-29-2024 Adult BMI Screening Adult BMI Screen ing [facility] Start: 10-29-2024 Tobacco Screening Tobacco Screening [facility] Start: 07-17-2023 Influenza vaccination Influenza Vacc ine [facility] Start: 10-30-2022 Depression Screening Depression Scre ening [facility] Start: 2003 Adult BMI Follow Up Plan Adult BMI Follow Up Plan [facility] Start: 1985 Tobacco Counseling Tobacco Counselin g [facility] Bacteria identified in Urine by Culture [facility] Patient Education [facility] ED/OP COV ID-[address] [facility] Work Phone: Patient referral [facility] Work Phone: Immunizations Immunization Date Immunization Notes Care Provider Camille arana 09-07-2018 influenza virus vaccine, unspecified formulation Annetta Hager [facility] 02-14-2018 tetanus toxoid, redu britany diphtheria toxoid, and acellular pertussis vaccine, adsorbed Annetta Madan [facility] Payers Date Payer Category Payer Self-pay 2017 Unknown [id number] 1985 Unknown [id number] 1985 Unknown [id number] 1985 Unknown [id number] 1959 Medicaid [id number] Medicaid [id number] Unknown Unknown [id number] Social History Date Type Detail Facility Unknown if ever smoked [facility] Other Start: 12-10-2020 End: 10-29-[address] [facility] Start: 10-24-2021 End: 10-24-2021 Tobacco smoking status VTIS Ex-smoker (finding) [facility] Start: 1985 Sex Assigned At Female F [facility] Start: 09-28-2023 Tobacco smoking stat [facility] Smoker (finding) [facility] Start: 03-02-2023 Tobacco smoking stat [facility] Smokes tobacco daily [facility] History of tobacco use Tobacco U se Types Packs/Day Years Used Date Smoking Tobacco: Every Day Vaping/E-cigarettes Smokeless Tobacco: Never [facility] Start: 03-02-2023 Tobacco use and exposure Smokeless tobacco non-user [facility] Start: 12-01-2023 Alcohol intake Ex-drinker (finding) [facility] Start: 12-10-2020 End: 10-29-2023 History of Social function [facility] Adolescent depressio n screening assessment 0 [facility] Start: 02-11-2018 Alcohol Comment socially [facility] Start: 1985 Sex Assigned At Not on file P [facility] Medical Equipment Procedure Code Equipment Code Equipment Origin al Text Equipment Identifier Dates Btn Jul Nsl Lyric Dev - Sna - [id number] Start: 01-17-2021 Clinical Notes 04-03-2022 to 12-14-2023 Telephone Encounter - Annetta Hager CMA - 12/14/2023 8:43 AM ESTTelephone Encounter - Annetta Hager CMA - 12/14/2023 8:43 AM EST Note Date & Type Note Facility 12-14-2023 Miscellaneous Notes Formattin g of this note might be different from the original. Left message for patient to remind them to bring their most current medication list with them to their appointment. documented in this encounter [facility] 12-14-2023 Telephone encount er Note Left message for patient to remind them to bring their most current medication list with them to their appointment. [facility] 01-02-2023 Evaluation note Encounter Date Diagnosis Assessment Notes Dec, Sore throat (ICD-10 - J02.9) Pharyngitis/to nsillopharyngi tis: adult home care material was printed Drink plenty fluids, get plenty of rest. Take Tylenol or Motrin as needed for aches pains or fevers. Continue home medications as prescribed. Follow-up with your family physician if no improvement in 2 to 3 days. Dec, Viral upper respiratory illness (ICD-10 - J06.9) [facility] Other 10-10-2022 Evaluation note* Encounter Date Diagnosis Assessment Notes Treatment Notes Treatment Clinical Notes Aug, Grade III internal hemorrhoids (ICD-10 - K64.2) Aug, Herpes zoster without complication (ICD-10 - B02.9) [facility] Other 09-28-2022 Evaluation note* Encounter Date Diagnosis Assessment Notes Treatment Notes Treatment Clinical Notes Jul, Contact with and (suspected) exposure to other viral communicable diseases (ICD-10 - Z20.828) Jul, Acute sinusitis, recurrence not specified, unspecified location (ICD-10 - J01.90) Sinusitis home care material was printed Drink plenty fluids, get plenty of rest. Continue home medications as prescribed. Take the prednisone and the Augmentin as prescribed until gone. Follow-up with your family physician if no improvement in 2 to 3 days. Jul, Bronchitis (ICD-10 - J40) Jul, History of asthma (ICD-10 - Z87.09) [facility] Other 09-23-2022 Evaluation note* Encounter Date Diagnosis Assessment Notes Treatment Notes Treatment Clinical Notes Jul, Contact with and (suspected) exposure to other viral communicable diseases (ICD-10 - Z20.828) Jul, Viral URI (ICD-10 - J06.9) colin contact pt with test results tomorrow. pt is out of the recommended quarantine window as it has been already 5 days of symptoms. she is afebrile and symptoms are not worsening so she does not require further quarantine. nevertheless, work note given for tomorrow so pt can rest and recoup. recommended pt follow up in 1 week if symptoms persists/worsen despite tx. go to ER if experiencing red flag symptoms of persistent SOB unrelieved by inhalers, CP, intractable fevers or other emergent symptoms. Jul, Bilateral otitis media with effusion (ICD-10 - H65.93) zofran and meclizine per pt request. she takes these meds for vertigo. with fluid in her ears, this is worsening her vertigo and she needs refill. will send meds, take as directed. Jul, Exacerbation of asthma, unspecified asthma severity, unspecified whether persistent (ICD-10 - J45.901) albuterol rx sent for neb treatments. continue with rescue inhaler and steroid rx as prescribed. advised smoking cessation. Maichang Other 06-14-2022 Evaluation note* Encounter Date Diagnosis Assessment Notes Treatment Notes Treatment Clinical Notes Apr, Obesity (ICD-10 - E66.9) Plan, purchase and prepare healthy foods. Use shopping list, electronic shopping to curb impulse buying. Stock pantry with healthy foods. Keep fruits and vegetables accessible. Avoid bringing unhealthy foods in to the home. Plan family meals minimally 3 x per week. Decrease screen time. Apr, Kidney stones (ICD-10 - N20.0) Avoidance of topiramate Apr, Irritable bowel syndrome (IBS) (ICD-10 - K58.9) GLP-1 could promote secondary benefit but cost prohibitive at this juncture Apr, Constipation (ICD-10 - K59.00) Caution with any stimulant medication. Patient with current hemorrhoid surgical consultation for management Apr, GERD (gastroesophageal reflux disease) (ICD-10 - K21.9) Can remit with weight loss Apr, Bipolar disorder (ICD-10 - F31.9) Caution with any psychostimulants should be done in conjunction with psychiatry. Apr, Vitamin D deficiency (ICD-10 - E55.9) Intermittent surveillance and optimization. Vitamin D deficiency suspected. Vitamin D has been noted to have positive impact on mood and energy. We can recheck periodically and make recommendations for long-term supplementation with [id number]-[id number] formulations or prescription grade repletion. Apr, Other I have spent 60 minutes with this patient and over 50% of the visit was counseling done by myself, Kayla NOVOA. Maichang Other 05-23-2022 Evaluation note* Encounter Date Diagnosis Assessment Notes Treatment Notes Treatment Clinical Notes March, Grade IV hemorrhoids (ICD-10 - K64.3) Maichang Other 05-19-2022 Evaluation note* Encounter Date Diagnosis Assessment Notes Treatment Notes Treatment Clinical Notes March, Grade III internal hemorrhoids (ICD-10 - K64.2) Continue same hemorrhoid cream but added pain relieving cream. Extended note due to discomfort. March, Grade IV hemorrhoids (ICD-10 - K64.3) Further education given in office today and patient will have spouse help her use medication to assure that it will help her get in proper area. If symptoms are not improved by Thursday we will discuss referral to surgeon Maichang Other Evaluation noteNo InformationNortVZnet [employer]ke Other Evaluation noteNo assessment information available [facility] Work Phone: history general Narrative - Reported* Type Description Date Medical History migraine headache Medical History IBS Medical History depression Medical History anxiety Medical History adhd Medical History bipolar Medical History depression Medical History anxiety Surgical History hysterectomy Surgical History HYSTERECTOMY 05/2012 Surgical History laparoscopy x3 Surgical History tubal ligation Surgical History nose x2 Surgical History tonsillectomy Surgical History colonoscopy Surgical History t&a Surgical History colposcopy Surgical History bladder suspension, unspecified Surgical History laparoscopy Surgical History septoplasty Hospitalization History see above Maichang Other Hisspsh general Narrative - ReportedNoSMT Research [employer] Development Other history general Narrative - Reported* Type Description Date Medical History migraine headache Medical History IBS Medical History depression Medical History anxiety Medical History adhd Medical History bipolar Medical History depression Medical History anxiety Surgical History hysterectomy Surgical History HYSTERECTOMY 05/2012 Surgical History laparoscopy x3 Surgical History tubal ligation Surgical History nose x2 Surgical History tonsillectomy Surgical History colonoscopy Surgical History t&a Surgical History colposcopy Surgical History bladder suspension, unspecified Surgical History laparoscopy Surgical History septoplasty Surgical History ECT Hospitalization History see above Hospitalization History psych 11/05 Maichang Other history general Narrative - Reported* Type Description Date Medical History migraine headache Medical History IBS Medical History depression Medical History anxiety Medical History adhd Medical History bipolar Medical History depression Medical History anxiety Surgical History HYSTERECTOMY 05/2012 Surgical History laparoscopy x3 Surgical History tubal ligation Surgical History nose x2 Surgical History tonsillectomy Surgical History colonoscopy Surgical History t&a Surgical History colposcopy Surgical History bladder suspension, unspecified Surgical History laparoscopy Surgical History septoplasty Surgical History ECT Surgical History Bladder Sling Hospitalization History see above Hospitalization History psych 11/05 Maichang Other history general Narrative - Reported* Type Description Date Medical History migraine headache Medical History IBS Medical History depression Medical History anxiety Medical History adhd Medical History bipolar Medical History depression Medical History asthma Surgical History HYSTERECTOMY 05/2012 Surgical History laparoscopy x3 Surgical History tubal ligation Surgical History nose x2 Surgical History tonsillectomy Surgical History colonoscopy Surgical History t&a Surgical History colposcopy Surgical History bladder suspension, unspecified Surgical History laparoscopy Surgical History septoplasty Surgical History ECT Surgical History Bladder Sling Hospitalization History see above Hospitalization History psych 11/05 Maichang Other InstructionsNot on filedocumented in this encounter [facility] Narrative[facility] Surgery Referral Update Maichang Other Summary Purpose Family History No Family History Records Found Relationship Condition Age at Onset Recorded Date/T antonella Not Specified Depression Unknown Not Specified Anemia Unknown Hyperlipidemia Unknown grandparent Malignant neoplasm of pancreas Unknown Diabetes mellitus Unknown Vision loss Unknown Leukemia Unknown Myocardial infarction Unknown brother Malignant neoplasm of testicle Unknown Advance Directives No Advanced Directives Records Found Advance Directive Response Recorded Date/ Time Advance Directives No October 6:13pm Advance Directive Response Recorded Date/ Time Advance Directives No October 5:13pm Reason for Referral Reason patient has tru y uncomfortable hemorrhoids Diagnosis 1 Grade IV hemorrhoids (K64.3) Referral Organization [facility] Referring Provider First Name Lexy Referring Provider Last Name Martinez Referring Provider Specialty Nurse Pract itioner Referred Organization [facility] Referred Provider Venkat Meraz Referred Address ,[place], [place],[address] Referred Provider Specialty Surgery Referral Priority Routine General Notes Connie Blanc 022 03:25:21 PM >Received referral and waiting for office notes to be locked Chief Complaint and Reason for Visit Chief Complaint Dysuria Chief Complaint R30.0 Chief Complaint cough, abd pain Additional Source Comments INFORMATION SOURCE (unrecogn ized section and content) DATE CREATED AUTHOR 09/11/2018 [facility] DATE CREATED AUTHOR AUTHOR'S ORGANIZ ATION 01/29/2019 [facility] DATE CREATED AUTHOR AUTHOR'S ORGANIZ ATION 08/27/2021 [facility] DATE CREATED AUTHOR AUTHOR'S ORGANIZ ATION 09/22/2021 [facility] DATE CREATED AUTHOR AUTHOR'S ORGANIZ ATION 12/31/2022 [facility] DATE CREATED AUTHOR AUTHOR'S ORGANIZ ATION 12/25/2023 [facility] DATE CREATED AUTHOR AUTHOR'S ORGANIZ ATION 04/26/2024 [facility] REASON FOR VISIT (unrecogniz ed section and content) SORE THROATRefillsGRAY VOLVO , COUGH, CONGESTION, SEEN [facility] 08/08/22 AND NOT IMPROVINGNOT VACCINATED, COUGH, DIARRHEA, CONGESTION, HEADACHEPT STATES THAT SHE HAS BEEN SHAKING FOR 2 WEEKSDS approval of new medsInitial WMNESTABLISH, FOLLOW UP [facility], Rahul Establish PrimaryHEMORRHOIDS Care Teams (unrecognized sec tion and content) Team Status: Inactive Member Role Status Dates CARLY Santiago-Jamee Primary Care Provider, Atten ding Provider Active Team Status: Active Member Role Status Dates BRIGHT Santiago Primary Care Provider Active Team Status: Active Member Role Status Dates PHYSICIAN NO FAMILY Primary Care Provider Active Team Status: Inactive Member Role Status Dates PHYSICIAN NO FAMILY Primary Care Provider Active Sneah Amaral DO Emergency Provider Active Equipment Lead Relationship Specialty Start Date End Date No Pcp, [place] [address] PCP - General Family Medicine 05/06/23 Goals (unrecognized section and content) Goals may be documented in a n alternate section FOR RECORDS PERTAINING TO PATIENTS WHO ARE OR HAVE BEEN ENROLLED IN A CHEMICAL DEPENDENCY/SUBSTANCEABUSE PROGRAM, SOME INFORMATION MAY BE OMITTED. This clinical summary was aggregated from multiple sources. Caution should be exercised in using it in the provision of clinical care. This summary normalizes information from multiple sources, and as a consequence, information in this document may materially change the coding, format and clinical context of patient data. In addition, data may be omitted in some cases. CLINICAL DECISIONS SHOULD BE BASED ON THE PRIMARY CLINICAL RECORDS. [facility]. provides no warranty or guarantee of the accuracy or completeness of information in this document.
--- NOTE | 2024-08-19 10:39 | XR_ITS ---
The [address] [address] Patient Name: GARO ROBLES MRN: [id number] date: 1985 Sex: F Assigned Patient Location: ER Current Patient Location: ER Accession/Order Number: [id number] Exam Date: 08/19/2024 11:29 Report Date: 08/19/2024 11:55 At the request of: SARINA DAVIS Procedure: XR chest 1V EXAMINATION: XR chest 1V HISTORY: cough COMPARISON: XR chest 11/02/2023 FINDINGS: LUNGS: No significant pulmonary parenchymal abnormalities. VASCULATURE: No increased pulmonary vasculature. PLEURA: No pneumothorax, effusion, or pleural thickening. CARDIAC: No cardiomegaly or cardiac silhouette abnormality. MEDIASTINUM: No visible mass or adenopathy. BONES: No fracture or visible bone lesion. OTHER: Negative. XR/XR chest 1V IMPRESSION: 1. No acute cardiopulmonary process. Electronically authenticated by: NAHID SINGH Date: 08/19/2024 11:55
--- NOTE | 2024-08-19 10:40 | ED_ITS ---
HPI HPI - General Adult General Chief complaint: Abdominal Pain Stated complaint: DIZZY, ABDOMINAL PAIN, RECTAL BLEEDING Time Seen by Provider: 08/19/24 10:26 Source: patient Mode of arrival: walk-in Limitations: no limitations History of Present Illness HPI narrative: 38-year-old female presents to the emergency department for pain and she states she had blood in her stool this morning. She complains of pain across the lower abdomen. She is never had an issue like that before. She is also had a cough and her children recently got over pneumonia. She has not had a fever. Related Data Previous Rx's ?Medication ?Instructions ?Recorded hyoscyamine sulfate 0.125 mg 0.125 mg PO Q6H PRN pain #20 tabs 08/19/24 tablet (Levsin) ondansetron 4 mg disintegrating 4 mg PO Q6H PRN nausea and 08/19/24 tablet vomiting #20 tabs Allergies Allergy/AdvReac Type Severity Reaction Status Date / Time asenapine [From Saphris] Allergy Intermediate Diarrhea Verified 08/19/24 10:18 ciprofloxacin [From Cipro] Allergy Intermediate Unknown Verified 08/19/24 10:18 hydromorphone [From Dilaudid] Allergy Intermediate Hives Verified 08/19/24 10:18 levofloxacin [From Levaquin] Allergy Intermediate hives Verified 08/19/24 10:18 Opioid HPI Opioid Management Most Recent Opioid Data: Last Pain Scale 5 08/19/24 10:42 Review of Systems ROS Narrative A ten point review of systems is negative except as noted above. PFSH PFSH Social History Little interest or pleasure in doing things: several days Feeling down, depressed, or hopeless: not at all Exam Narrative Exam Narrative: Nurses note and vital signs reviewed and patient is not hypoxic. General: The patient appears well and in no apparent distress. Patient is resting comfortably on cart. Skin: Warm, dry, no pallor noted. There is no rash noted. Head: Normocephalic, atraumatic Eye: Normal conjunctiva, no drainage Ears, Nose, Mouth, and Throat: oral mucosa is moist. Nares patent. Cardiovascular: Regular Rate and Rhythm Respiratory: Patient is in no distress, no accessory muscle use, lungs are clear to auscultation, no wheezing, rales or rhonchi Back: non-tender GI: Soft and nondistended. She has diffuse tenderness across her lower abdomen. Musculoskeletal: The patient has no evidence of calf tenderness, no pitting edema, symmetrical pulses noted bilaterally Neurological: Awake and alert Psychiatric: Cooperative Constitutional Vital Signs, click to edit/add: Last Vital Signs Temp 98.4 F 08/19/24 10:18 Pulse 65 08/19/24 12:13 Resp 18 08/19/24 12:13 BP 118/74 08/19/24 12:13 Pulse Ox 100 08/19/24 12:13 O2 Del Method Room Air 08/19/24 10:18 Course Vital Signs Vital signs: Vital Signs Temperature 98.4 F 08/19/24 10:18 Pulse Rate 80 08/19/24 10:18 Respiratory Rate 18 08/19/24 10:18 Blood Pressure 129/98 H 08/19/24 10:18 Pulse Oximetry 98 08/19/24 10:18 Oxygen Delivery Method Room Air 08/19/24 10:18 Temperature 98.4 F 08/19/24 10:18 Pulse Rate 65 08/19/24 12:13 Respiratory Rate 18 08/19/24 12:13 Blood Pressure 118/74 08/19/24 12:13 Pulse Oximetry 100 08/19/24 12:13 Oxygen Delivery Method Room Air 08/19/24 10:18 Medical Decision Making MDM Narrative Medical decision making narrative: Her entire workup is negative including CAT scan of the abdomen. Hemoglobin is normal as is her WBC. No evidence of colitis or diverticulitis or proctitis. She is being referred to general surgery for follow-up and does not require admission the hospital at this point. Findings are discussed thoroughly with the patient. She states that she does not want any medications that could constipate her. She is prescribed Levsin and Zofran. We talked about Bentyl but she states that medication constipates her as well. Treatment diagnosis and follow-up were discussed thoroughly. Differential Diagnosis Differential Diagnosis: Hemorrhoids, diverticulitis, colitis, proctitis Lab Data Lab results reviewed: Yes I reviewed the patient's lab results Labs: Lab Results 08/19/24 08/19/24 08/19/24 Range/Units 10:25 10:37 10:46 WBC 9.3 (4.0-11.0) 10^3/uL RBC 4.30 (4.20-5.40) 10^6/uL Hgb 12.7 (12.0-16.0) g/dL Hct 38.5 (36.0-48.0) % MCV 89.5 (81.0-99.0) fL MCH 29.5 (26.7-34.0) pg MCHC 33.0 (29.9-35.2) g/dL RDW 12.7 (11.0-15.0) % Plt Count 329 (150-450) 10^3/uL MPV 9.8 (9.5-13.5) fL Neut % (Auto) 54.1 (43.0-75.0) % Lymph % (Auto) 34.9 (20.5-60.0) % Young % (Auto) 8.1 (1.7-12.0) % Eos % (Auto) 2.1 (0.9-7.0) % Baso % (Auto) 0.4 (0.2-2.0) % Neut # (Auto) 5.0 (1.4-6.5) 10^3/uL Lymph # (Auto) 3.3 (1.2-3.8) 10^3/uL Young # (Auto) 0.8 (0.3-0.8) 10^3/uL Eos # (Auto) 0.2 (0.0-0.7) 10^3/uL Baso # (Auto) 0.0 (0.0-0.1) 10^3/uL Abs Immat Gran (auto) 0.04 H (0.00-0.03) 10^3/uL Imm/Tot Granulo (auto) 0.4 (0.0-0.5) % Sodium 135 L (136-145) mmol/L Potassium 4.0 (3.5-5.1) mmol/L Chloride 102 (98-107) mmol/L Carbon Dioxide 25.0 (21.0-32.0) mmol/L Anion Gap 12.0 BUN 10.0 (7.0-18.0) mg/dL Creatinine 0.85 (0.55-1.02) mg/dL Est GFR ( Amer) >60 (>=60 mL/min/1.73m^2) Est GFR (Non-Af Amer) >60 (>=60 mL/min/1.73m^2) BUN/Creatinine Ratio 11.8 Glucose 94 (74-106) mg/dL Calcium 9.0 (8.5-10.1) mg/dL Urine Color Lt. yellow (YELLOW) Urine Clarity Clear (CLEAR) Urine pH 6.0 (5.0-9.0) Ur Specific [place] 1.010 (1.005-1.025) Urine Protein Negative (NEG/TRACE) mg/dL Urine Glucose (UA) Negative (NEGATIVE) mg/dL Urine Ketones Negative (NEGATIVE) mg/dL Urine Occult Blood Trace-i (NEGATIVE) Urine Nitrite Negative (NEGATIVE) Urine Bilirubin Negative (NEGATIVE) Urine Urobilinogen 0.2 (0.2-1.0) EU/dL Ur Leukocyte Esterase Negative (NEGATIVE) Urine RBC 0-2 (0-2) #/HPF Urine WBC None seen (NONE SEEN) #/HPF Ur Squamous Epith Cells Rare (NONE/RARE) #/LPF Urine Crystals None seen (None Seen) #/HPF Urine Bacteria Trace A (NONE SEEN) #/HPF Urine Casts None seen (NONE SEEN) #/LPF Urine Mucus None seen (NONE SEEN) Influenza Type A Ag Negative Influenza Type B Ag Negative SARS-CoV-2 Ag (CV2AG) Negative (NEGATIVE) Imaging Data CT scan - abdomen: Radiologist's impression: ITS Impressions Chest X-Ray 08/19/24 10:39 IMPRESSION: 1. No acute cardiopulmonary process. Electronically authenticated by: NAHID SINGH Date: 08/19/2024 11:55 Abdomen/Pelvis CT 08/19/24 11:38 IMPRESSION: 1. Relatively empty small bowel and large bowel. No appreciable mass, inflammatory changes, or suspicious findings. Electronically authenticated by: NAHID SINGH Date: 08/19/2024 11:59 Discharge Plan Discharge Chief Complaint: Abdominal Pain Clinical Impression: Abdominal pain, Rectal bleed Patient Disposition: Home, Self-Care Time of Disposition Decision: 12:31 Condition: Good Mode of Transportation: Private Vehicle Prescriptions / Home Meds: New ondansetron 4 mg tablet,disintegrating 4 mg PO Q6H PRN (Reason: nausea and vomiting) Qty: 20 0RF hyoscyamine sulfate [Levsin] 0.125 mg tablet 0.125 mg PO Q6H PRN (Reason: pain) Qty: 20 0RF Print Language: Vietnamese Instructions: Gastrointestinal Bleeding (ED), Rectal Bleeding (ED), Abdominal Pain (ED) Additional Instructions: See attached list of family physicians Referrals: Mick Joseph MD [Physician] - 1 week Physician,Non-Staff, [Primary Care Provider] - 1 week
[2024-08-19 10:50] LABS: Basophils Percent Auto 0.4 % (0.2-2.0); Eosinophils Absolute Auto 0.2 10^3/uL (0.0-0.7); Eosinophils Percent Auto 2.1 % (0.9-7.0); Hematocrit 38.5 % (36.0-48.0); Hemoglobin 12.7 g/dL (12.0-16.0); Immature Granulocytes Abs Auto 0.04 10^3/uL (0.00-0.03); Immature Granulocytes Pct Auto 0.4 % (0.0-0.5); Lymphocytes Absolute Auto 3.3 10^3/uL (1.2-3.8); Lymphocytes Percent Auto 34.9 % (20.5-60.0); Mean Corpuscular Hemoglobin 29.5 pg (26.7-34.0); Mean Corpuscular Volume 89.5 fL (81.0-99.0); Mean Platelet Volume 9.8 fL (9.5-13.5); Monocytes Absolute Auto 0.8 10^3/uL (0.3-0.8); Monocytes Percent Auto 8.1 % (1.7-12.0); Neutrophils Percent Auto 54.1 % (43.0-75.0); Platelet Count 329 10^3/uL (150-450); Red Cell Distribution Width 12.7 % (11.0-15.0); White Blood Count 9.3 10^3/uL (4.0-11.0)
[2024-08-19 10:57] LABS: BUN Creatinine Ratio 11.8; Chloride 102 mmol/L (98-107); Estimated GFR (African America >60 (>=60 mL/min/1.73m^2); Estimated GFR (Non-African Ame >60 (>=60 mL/min/1.73m^2); Glucose 94 mg/dL (74-106); Sodium 135 mmol/L (136-145)
[2024-08-19 10:58] LABS: Bilirubin Urine NEGATIVE (NEGATIVE); Blood Urine TRACE-I (NEGATIVE); Clarity Urine CLEAR (CLEAR); Color Urine LT. YELLOW (YELLOW); Glucose Urine UA NEGATIVE (NEGATIVE); Ketones Urine NEGATIVE (NEGATIVE); Leukocyte Esterase Urine NEGATIVE (NEGATIVE); Nitrite Urine NEGATIVE (NEGATIVE); Protein Urine NEGATIVE (NEG/TRACE); Urobilinogen Urine 0.2 EU/dL (0.2-1.0)
[2024-08-19 11:07] LABS: Bacteria Urine TRACE #/HPF (NONE SEEN); Cast Seen? NONE SEEN #/LPF (NONE SEEN); Crystals Seen? None Seen #/HPF (None Seen); Mucus Urine NONE SEEN (NONE SEEN); RBC Urine 0-2 #/HPF (0-2); Squamous Epithelial Cell Urine RARE #/LPF (NONE/RARE); WBC Urine NONE SEEN #/HPF (NONE SEEN)
[2024-08-19 11:11] LABS: Influenza Virus A Antigen Negative; Influenza Virus B Antigen Negative
[2024-08-19 11:12] LABS: Internal Control Within Normal Limits; SARS-CoV-2 Ag NEGATIVE (NEGATIVE)
--- NOTE | 2024-08-19 11:38 | CT_ITS ---
[address] [address] Patient Name: GARO ROBLES MRN: [id number] date: 1985 Sex: F Assigned Patient Location: ER Current Patient Location: ER Accession/Order Number: [id number] Exam Date: 08/19/2024 11:29 Report Date: 08/19/2024 11:59 At the request of: SARINA DAVIS Procedure: CT abdomen pelvis w con EXAMINATION: CT abdomen pelvis w con HISTORY: Abdominal pain , left lower quadrant pain, liquid bloody stool. COMPARISON: No relevant comparison available. TECHNIQUE: Axial, Coronal, and Sagittal images were obtained without and/or with IV contrast as indicated by examination type. Dose reduction techniques were achieved by using automated exposure control and/or adjustment of mA and/or kV according to patient size and/or use of iterative reconstruction technique. FINDINGS: LUNG BASES: No visible pulmonary or pleural disease. LIVER: No enlargement, atrophy, suspicious density, or significant focal lesion. BILIARY: No dilatation or calcification. PANCREAS: No lesion, fluid collection, or abnormal duct dilatation. SPLEEN: No enlargement or focal lesion. ADRENALS: No mass or enlargement. KIDNEYS: No mass, obstruction, or calcification. BOWEL/MESENTERY: No visible mass, obstruction, or bowel wall thickening. Normal appendix. AORTA/VASCULAR: No aneurysm or dissection. RETROPERITONEUM: No mass or adenopathy. LYMPH NODES: No adenopathy. URINARY BLADDER: No visible focal wall thickening, lesion, or calculus. PELVIC ORGANS: Trace amount of free fluid in pelvic cul-de-sac, likely physiologic. Hysterectomy. ABDOMINAL WALL: No mass or hernia. BONES: No bony lesion or fracture. OTHER: Negative. CT/CT abdomen pelvis w con IMPRESSION: 1. Relatively empty small bowel and large bowel. No appreciable mass, inflammatory changes, or suspicious findings. Electronically authenticated by: NAHID SINGH Date: 08/19/2024 11:59
[2024-08-19 12:13] VITALS: BP 118/74; PULSE 65; O2SAT 100
== END 2024-08-19 12:43 | disposition home or self-care (01) ==
PROVIDERS: Emergency Provider Emergency Medicine
DX: R10.9 Unspecified abdominal pain (principal); K62.5 Hemorrhage of anus and rectum; Z20.822 Contact with and (suspected) exposure to COVID-19
CPT/HCPCS: 36415; 71045; 74177; 80048; 81001; 85025; 87804; 87811; 99285; Q9967

== ENCOUNTER 2025-02-09 10:03 | Emergency (ER) | payer OTHER, SELFPAY ==
[2025-02-09] VITALS (11 sets, daily range): BP systolic 101–131; BP diastolic 54–82; PULSE 79–101; TEMP 36.8; O2SAT 99–100; BMI 41.2
--- NOTE | 2025-02-09 10:14 | ED_ITS ---
HPI HPI - General Adult General Chief complaint: Weakness Stated complaint: OTHER Time Seen by Provider: 02/09/25 10:14 History of Present Illness HPI narrative: 39-year-old female presents to the emergency department for not feeling right. She has had episodes like this for a year and a half and she was seen by multiple physicians including a medical art therapist. At some point she was diagnosed with neurocardiogenic syncope. She has had no fever or cough or diarrhea. This time it started about 430 this morning. She feels dizzy and feels warm and fuzzy all over. Related Data Home Medications ?Medication ?Instructions ?Recorded ?Confirmed metoprolol succinate 25 mg 12.5 mg PO DAILY 02/09/25 02/09/25 tablet,extended release 24 hr promethazine 25 mg rectal 25 mg ND Q6H PRN nausea and 02/09/25 02/09/25 suppository vomiting Previous Rx's ?Medication ?Instructions ?Recorded hyoscyamine sulfate 0.125 mg 0.125 mg PO Q6H PRN pain #20 tabs 08/19/24 tablet (Levsin) ondansetron 4 mg disintegrating 4 mg PO Q6H PRN nausea and 08/19/24 tablet vomiting #20 tabs Allergies Allergy/AdvReac Type Severity Reaction Status Date / Time asenapine (From Saphris) Allergy Intermediate Diarrhea Verified 02/09/25 10:42 ciprofloxacin (From Cipro) Allergy Intermediate Unknown Verified 02/09/25 10:42 hydromorphone (From Dilaudid) Allergy Intermediate Hives Verified 02/09/25 10:42 levofloxacin (From Levaquin) Allergy Intermediate hives Verified 02/09/25 10:42 Opioid HPI Opioid Management Most Recent Opioid Data: Last Pain Scale 5 08/19/24 10:42 08/19/24 Ur Phencyclidine Scrn Negative (NEGATIVE) 02/09/25 10:25 0306/09 Review of Systems ROS Narrative A ten point review of systems is negative except as noted above. PFSH PFSH Social History Little interest or pleasure in doing things: not at all Feeling down, depressed, or hopeless: not at all Exam Narrative Exam Narrative: Nurses note and vital signs reviewed and patient is not hypoxic. General: The patient appears well and in no apparent distress. Patient is resting comfortably on cart. Skin: Warm, dry, no pallor noted. There is no rash noted. Head: Normocephalic, atraumatic Eye: Normal conjunctiva, no drainage Ears, Nose, Mouth, and Throat: oral mucosa is moist. Nares patent. Cardiovascular: Regular Rate and Rhythm Respiratory: Patient is in no distress, no accessory muscle use, lungs are clear to auscultation, no wheezing, rales or rhonchi Back: non-tender GI: Normal bowel sounds, no tenderness to palpation, no masses appreciated. No rebound, guarding, or rigidity noted. Musculoskeletal: The patient has no evidence of calf tenderness, no pitting edema, symmetrical pulses noted bilaterally Neurological: A&O x4, normal speech; upper and lower extremity strength intact and symmetric Psychiatric: Cooperative Constitutional Vital Signs, click to edit/add: Last Vital Signs Temp 98.2 F 02/09/25 10:06 Pulse 89 02/09/25 12:02 Resp 20 02/09/25 12:02 BP 101/67 02/09/25 12:02 Pulse Ox 99 02/09/25 12:02 O2 Del Method Room Air 02/09/25 10:06 Course Vital Signs Vital signs: Vital Signs Temperature 98.2 F 02/09/25 10:06 Pulse Rate 82 02/09/25 10:06 Respiratory Rate 22 H 02/09/25 10:06 Blood Pressure 131/80 02/09/25 10:06 Pulse Oximetry 99 02/09/25 10:06 Oxygen Delivery Method Room Air 02/09/25 10:06 Temperature 98.2 F 02/09/25 10:06 Pulse Rate 89 02/09/25 12:02 Respiratory Rate 20 02/09/25 12:02 Blood Pressure 101/67 02/09/25 12:02 Pulse Oximetry 99 02/09/25 12:02 Oxygen Delivery Method Room Air 02/09/25 10:06 Medical Decision Making MDM Narrative Medical decision making narrative: Her workup here is negative. While she was here in the emergency department she was able to schedule her echo and her stress test for next week. She requested to be admitted to the hospital to have her echo done and this would not be medically appropriate. There is no medical indication for admission to the hospital and I spoke to Dr. Milner and we have agreed that the patient does not require admission to the hospital at this point. She is going to follow-up with her established medical art therapist and have the outpatient testing performed. She has been having the symptoms for over a year. Treatment diagnosis and follow-up were discussed with the patient. She was offered a work note but does not feel that she needs it because she is her own boss. Differential Diagnosis Differential Diagnosis: Acute kidney injury, anemia, dehydration Lab Data Lab results reviewed: Yes I reviewed the patient's lab results Labs: Lab Results 02/09/25 02/09/25 Range/Units 10:25 10:28 WBC 9.5 (4.0-11.0) 10^3/uL RBC 4.67 (4.20-5.40) 10^6/uL Hgb 13.7 (12.0-16.0) g/dL Hct 40.9 (36.0-48.0) % MCV 87.6 (81.0-99.0) fL MCH 29.3 (26.7-34.0) pg MCHC 33.5 (29.9-35.2) g/dL RDW 12.5 (11.0-15.0) % Plt Count 310 (150-450) 10^3/uL MPV 9.7 (9.5-13.5) fL Neut % (Auto) 64.0 (43.0-75.0) % Lymph % (Auto) 22.4 (20.5-60.0) % [place] % (Auto) 9.9 (1.7-12.0) % Eos % (Auto) 3.1 (0.9-7.0) % Baso % (Auto) 0.2 (0.2-2.0) % Neut # (Auto) 6.1 (1.4-6.5) 10^3/uL Lymph # (Auto) 2.1 (1.2-3.8) 10^3/uL [place] # (Auto) 0.9 H (0.3-0.8) 10^3/uL Eos # (Auto) 0.3 (0.0-0.7) 10^3/uL Baso # (Auto) 0.0 (0.0-0.1) 10^3/uL Abs Immat Gran (auto) 0.04 H (0.00-0.03) 10^3/uL Imm/Tot Granulo (auto) 0.4 (0.0-0.5) % Sodium 143 (136-145) mmol/L Potassium 4.1 (3.5-5.1) mmol/L Chloride 107 (98-107) mmol/L Carbon Dioxide 26.2 (21.0-32.0) mmol/L Anion Gap 13.9 BUN 11.0 (7.0-18.0) mg/dL Creatinine 0.88 (0.55-1.02) mg/dL Est GFR ( Amer) >60 (>=60 mL/min/1.73m^2) Est GFR (Non-Af Amer) >60 (>=60 mL/min/1.73m^2) BUN/Creatinine Ratio 12.5 Glucose 89 (74-106) mg/dL Calcium 8.9 (8.5-10.1) mg/dL Troponin I High Sens 4.5 (4.0-51.3) pg/mL Urine Color Lt. yellow (YELLOW) Urine Clarity Clear (CLEAR) Urine pH 6.5 (5.0-9.0) Ur Specific [place] <=1.005 A (1.005-1.025) Urine Protein Negative (NEG/TRACE) mg/dL Urine Glucose (UA) Negative (NEGATIVE) mg/dL Urine Ketones 15 A (NEGATIVE) mg/dL Urine Occult Blood Trace-i (NEGATIVE) Urine Nitrite Negative (NEGATIVE) Urine Bilirubin Negative (NEGATIVE) Urine Urobilinogen 0.2 (0.2-1.0) EU/dL Ur Leukocyte Esterase Negative (NEGATIVE) Urine RBC 0-2 (0-2) #/HPF Urine WBC 0-2 A (NONE SEEN) #/HPF Ur Squamous Epith Cells Few A (NONE/RARE) #/LPF Urine Crystals None seen (None Seen) #/HPF Urine Bacteria Trace A (NONE SEEN) #/HPF Urine Casts None seen (NONE SEEN) #/LPF Urine Mucus Trace A (NONE SEEN) Ur Culture Indicated? No Urine Opiates Screen Negative (NEGATIVE) Ur Buprenorphine Scrn Negative (NEGATIVE) Ur Oxycodone Screen Negative (NEGATIVE) Urine Methadone Screen Negative (NEGATIVE) Ur Barbiturates Screen Negative (NEGATIVE) U Tricyclic Antidepress Negative (NEGATIVE) Ur Phencyclidine Scrn Negative (NEGATIVE) Ur Amphetamines Screen Negative (NEGATIVE) U Methamphetamines Scrn Negative (NEGATIVE) U Benzodiazepines Scrn Negative (NEGATIVE) Urine Cocaine Screen Negative (NEGATIVE) U Cannabinoids Screen Positive A (NEGATIVE) Imaging Data CT brain, chest x-ray: Radiologist's impression: Chest x-ray: No acute cardiopulmonary process CT brain: Negative CT of the brain ECG Data Attestation: I personally reviewed and interpreted this ECG as follows: (EKG on my interpretation shows normal sinus rhythm with a rate of 80 and no acute change) Discharge Plan Discharge Chief Complaint: Weakness Clinical Impression: Dizziness Patient Disposition: Home, Self-Care Time of Disposition Decision: 12:27 Condition: Good Mode of Transportation: Private Vehicle Prescriptions / Home Meds: No Action ondansetron 4 mg tablet,disintegrating 4 mg PO Q6H PRN (Reason: nausea and vomiting) Qty: 20 0RF hyoscyamine sulfate [Levsin] 0.125 mg tablet 0.125 mg PO Q6H PRN (Reason: pain) Qty: 20 0RF metoprolol succinate 25 mg tablet extended release 24 hr 12.5 mg PO DAILY promethazine 25 mg suppository 25 mg ND Q6H PRN (Reason: nausea and vomiting) Print Language: Kiswahili Instructions: Dizziness (ED) Additional Instructions: Follow-up with your medical art therapist and the scheduled tests including echocardiogram and stress test. Referrals: Physician,Non-Staff, MD [Primary Care Provider] - 1 week
--- NOTE | 2025-02-09 10:14 | ECG_ITS ---
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 Measurements Intervals Gay Rate: 80 P: 70 RI: 168 QRS: 74 QRSD: 96 T: 60 QT: 366 QTc: 402 Interpretive Statements 1100 Sinus rhythm 9110 normal ECG Compared to ECG 11/02/2023 17:58:58 No significant changes Electronically Signed On 02-10-2025 19:16:16 EDT by ISAAC SCHNEIDER M.D.
[2025-02-09 10:43] LABS: Bilirubin Urine NEGATIVE (NEGATIVE); Blood Urine TRACE-I (NEGATIVE); Clarity Urine CLEAR (CLEAR); Color Urine LT. YELLOW (YELLOW); Glucose Urine UA NEGATIVE (NEGATIVE); Ketones Urine 15 mg/dL (NEGATIVE); Leukocyte Esterase Urine NEGATIVE (NEGATIVE); Nitrite Urine NEGATIVE (NEGATIVE); Protein Urine NEGATIVE (NEG/TRACE); Specific Gravity Urine <=1.005 (1.005-1.025); Urobilinogen Urine 0.2 EU/dL (0.2-1.0); pH Urine 6.5 (5.0-9.0)
[2025-02-09 10:45] LABS: Basophils Percent Auto 0.2 % (0.2-2.0); Eosinophils Absolute Auto 0.3 10^3/uL (0.0-0.7); Eosinophils Percent Auto 3.1 % (0.9-7.0); Hematocrit 40.9 % (36.0-48.0); Hemoglobin 13.7 g/dL (12.0-16.0); Immature Granulocytes Abs Auto 0.04 10^3/uL (0.00-0.03); Immature Granulocytes Pct Auto 0.4 % (0.0-0.5); Lymphocytes Absolute Auto 2.1 10^3/uL (1.2-3.8); Lymphocytes Percent Auto 22.4 % (20.5-60.0); Mean Corpuscular HGB Conc 33.5 g/dL (29.9-35.2); Mean Corpuscular Hemoglobin 29.3 pg (26.7-34.0); Mean Corpuscular Volume 87.6 fL (81.0-99.0); Mean Platelet Volume 9.7 fL (9.5-13.5); Monocytes Absolute Auto 0.9 10^3/uL (0.3-0.8); Monocytes Percent Auto 9.9 % (1.7-12.0); Neutrophils Absolute Auto 6.1 10^3/uL (1.4-6.5); Platelet Count 310 10^3/uL (150-450); Red Blood Count 4.67 10^6/uL (4.20-5.40); Red Cell Distribution Width 12.5 % (11.0-15.0); White Blood Count 9.5 10^3/uL (4.0-11.0)
[2025-02-09 10:58] LABS: Anion Gap 13.9; BUN Creatinine Ratio 12.5; Calcium 8.9 mg/dL (8.5-10.1); Carbon Dioxide 26.2 mmol/L (21.0-32.0); Chloride 107 mmol/L (98-107); Estimated GFR (African America >60 (>=60 mL/min/1.73m^2); Estimated GFR (Non-African Ame >60 (>=60 mL/min/1.73m^2); Glucose 89 mg/dL (74-106); Potassium 4.1 mmol/L (3.5-5.1); Sodium 143 mmol/L (136-145); Troponin I High Sensitivity 4.5 pg/mL (4.0-51.3)
[2025-02-09 10:58] LABS: Amphetamine Screen Urine NEGATIVE (NEGATIVE); Barbiturates Screen Urine NEGATIVE (NEGATIVE); Benzodiazepines Screen Urine NEGATIVE (NEGATIVE); Buprenorphine Screen Urine NEGATIVE (NEGATIVE); Cannabinoid Screen Urine POSITIVE (NEGATIVE); Cocaine Screen Urine NEGATIVE (NEGATIVE); Methadone Screen Urine NEGATIVE (NEGATIVE); Methamphetamines Screen Urine NEGATIVE (NEGATIVE); Opiate Screen Urine NEGATIVE (NEGATIVE); Oxycodone Screen Urine NEGATIVE (NEGATIVE); Phencyclidine Screen Urine NEGATIVE (NEGATIVE); Tricyclic Antidepressant Urine NEGATIVE (NEGATIVE)
[2025-02-09 11:05] LABS: Bacteria Urine TRACE #/HPF (NONE SEEN); Cast Seen? NONE SEEN #/LPF (NONE SEEN); Crystals Seen? None Seen #/HPF (None Seen); Mucus Urine TRACE (NONE SEEN); RBC Urine 0-2 #/HPF (0-2); Squamous Epithelial Cell Urine FEW #/LPF (NONE/RARE); Urine Culture Indicated NO; WBC Urine 0-2 #/HPF (NONE SEEN)
== END 2025-02-09 13:08 | disposition home or self-care (01) ==
PROVIDERS: Emergency Provider Emergency Medicine
DX: R42 Dizziness and giddiness (principal)
CPT/HCPCS: 36415; 70450; 71045; 80048; 80307; 81001; 84484; 85025; 93005; 99285

== ENCOUNTER 2025-09-11 20:09 | Outpatient (REF) | payer OTHER, SELFPAY ==
--- OUTSIDE RECORDS SUMMARY | 2017-03-06 06:00 | XMS_ITS | Continuity of Care Document ---
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 [address] [place] [address], [id number], [place]. tel:[phone] Referring Provider: Paco Glover, [address] [place] [address], [id number]. tel:[phone] OFFICE CONSULTATION [facility] [employer] [place] [facility], [address] [place] [address], [id number], tel:[phone] [facility] No Information Lilly Antonio. [address] [place] [address], [id number], [place]. tel:[phone] Referring Provider: Paco Glover, [address] [place] [address], [id number]. tel:[phone] Family History Family Member Type Diagnosis Age At Onset No Information Payers Payer name Insurance type Covered alliance party ID Authoriza tijeffry(s) [employer] CI [id number] Social History Type Description Quantity Date Captured Comments Sex Female Smoking Status No Information Chief Complaint And Reason For Visit No Information Reason For Referral Reason For Referral No Information History Of Present Illness Encounter Date Complaint History Of Prese nt Illness No Information Functional Status Date Functional Assessmen t No Information Instructions Date Instruction Additional Infor mation No Information Assessments Type Assessment Date No Information Patient Care Teams Name Effective Dates (start - stop) Status Members No Information
--- OUTSIDE RECORDS SUMMARY | 2024-11-28 05:15 | XMS_ITS ---
Author Organization [facility] Address [address] [facility] [id number] Care Team Providers Care Merchandiser Retail Representative Name Role Phone Joey Flynn Primary Care Provider Allergies Allergen (clinical drug ingredient) Drug/Non Drug Allergy documented on EMR Reaction Allergy Type Onset Date Status hydromorphone Dilaudid Unknown Drug Allergy ActiveLevaquinUnknownDrug AllergyActiveciprofloxacinCiprofloxacinUnknownDrug AllergyActive REASON FOR VISIT wellness Medications Medication SIG (Take, Route, Frequency, Duration) Notes Start Date End Date Status guaiFENesin ER 600 MG 1 tablet as needed Orally every 12 hrs; Duration: 10 days 2023ctiveAmoxicillin 500 MG1 capsule Orally every 8 hrs; Duration: 5 day(s)2023ctiveMeclizine HCl 12.5 MG1 tablet as needed Orally every 12 hrs; Duration: 7 days2023ctiveOndansetron HCl 4 MG 1 tablet Orally every 6 hours; Duration: 4 days As needed 2023ctive Social History Sex Assigned At : Social History Observation Description Sex Assigned At Female Encounters Encounter Location Date Provider Diagnosis [facility] [address] [facility] [id number] 11/28/2024 Joey Flynn Plan Of Treatment No Information Progress Notes * Arash OLIVEROSOB:1985 (39 yo F)Acc No.[id number]:11/28/2024 Patient:?Keira OLIVEROS :?Joey ScottdDOB:1985???Age:39 Y???Sex: FemaleDate:11/28/2024Phone:[phone]:[address], [place], [id number] Subjective: * Chief Complaints: * 1 . Wellness. * Medical History: A sthma, Bipolar depression. * Surgical History: E XTENSIVE HYSTERECTOMY , tonsillectomy , wisdom teeth removal . * Hospitalization/Major Diagno stic Procedure: o verdose [id number]. * Family History: F ather: alive. M other: alive. P aternal Grand Father: . P aternal Grand Mother: . M aternal Grand Father: . M aternal Grand Mother: . * Medications: T aking Meclizine HCl 12.5 MG Tablet 1 tablet as needed Orally every 12 hrs , Taking Ondansetron HCl 4 MG Tablet 1 tablet Orally every 6 hours As needed, Taking Amoxicillin 500 MG Capsule 1 capsule Orally every 8 hrs , Taking guaiFENesin ER 600 MG Tablet Extended Release 12 Hour 1 tablet as needed Orally every 12 hrs * Allergies: C iprofloxacin: Allergy, Dilaudid: Allergy, Levaquin: Allergy. Objective: * Vitals: * Examination: ???CQM Exceptions: ?Currently taking Aspirin:?Aspirin Use:?No??? Assessment: Plan: * Treatment: * Billing Information: * Visit Code: * Procedure Codes: * Electronic signature of ROHINI Lea on 09/11/2025 at 08:12 PM EDTSign off status: Pending * Provider: Alee Flynn Date: 0 11/28/2024 Generated for Printing/Faxing/eTransmitting on:?09/11/2025 08:12 PM EDT History and Physical Notes * Examination CategorySub-CategoryDetailNotesCategory NotesCQM ExceptionsCurrently taking Aspirin:Aspirin Use:: No
--- OUTSIDE RECORDS SUMMARY | 2025-09-05 12:30 | XMS_ITS | Encounter Summary ---
Author Organization [facility] [place] Communication s tem Address [id number] [address] [place] [address] Care Team Providers Care Thermal Cutting Machine Operator Name Role Phone Lowell Whitten JUDITH-SLACK COOPER Primary Care Provider + Reason for Visit * ReasonCommentsFollow-upEST PT, LS RBP, REQ SOONER APPT HAS BEEN HAVING CP AND TAKING ASA FOR IT, SCHED W/PT Encounter Details DateTypeDepartmentCare Team (Latest Contact Info)Qunbpjkgtut43/21/2025 12:30 PM EDTOffice Visit [facility] [address] [place] [id number] Tyler Hale MD [address] [place] [address] Adi Arriaga MD [address] [place] [facility] [place] [address] Other chest pain (Primary Dx) Social History Tobacco UseTypesPacks/DayYears UsedDateSmoking Tobacco: Former Vaping/E-cigarettesSmokeless Tobacco: Never Tobacco Cessation:Counseling Given: Not Answered Alcohol UseStandard Drinks/WeekCommentsYes0 (1 standard drink = 0.6 oz pure alcohol)sociallyPHQ-2AnswerDate RecordedTotal Chphw2325AUDIT-CAnswerDate RecordedQ1: How often do you have a drink containing alcohol?Monthly or less 09/05/2025Q2: How many drinks containing alcohol do you have on a typical day when you are drinking?1 or Q3: How often do you have six or more drinks on one occasion?Never09/05/2025hildcareAnswerDate RecordedChildcare Tvbajot5604/26/2019EmploymentAnswerDate LlsbenekZdtmndxeuhMwghxjs64/11/2019Hunger ScreeningAnswerDate RecordedWithin the past 12 months we worried whether our food would run out before we got money to buy more.Never True09/05/2025Within the past 12 months the food we bought just didn't last and we didn't have money to get more.Never True09/05/2025Purpose - LifeAnswerDate RecordedPurpose and direction in xlipUfrvxxr26/25/2021CommentsNoSex and Gender Information ValueDate RecordedSex Assigned at DoydhVxgzyb94/31/2025 9:02 AM EDTLegal Sex Fzpxac1606/21/2015 11:28 AM EDTGender UwxgbdrnZzcvyy76/31/2025 9:02 AM EDTSexual UxokcziihacNrjfapdh28/31/2025 9:02 AM EDTOccupationIndustryJob Start DateJob End DateSTNANot on fileNot on fileNot on filedocumented as of this encounter Last Filed Vital Signs Vital SignReadingTime TakenCommentsBlood Fvhhpnqn240/8010 12:25 PM EDT Gpdyu771009/05/2025 12:25 PM EDTTemperature--Respiratory Rate--Oxygen Saturation 97%09/05/2025 12:25 PM EDTInhaled Oxygen Concentration--Ttjgyj397.6 kg (235 lb) 09/05/2025 12:25 PM DAAOeklnb988.6 cm (5' 4 )09/05/2025 12:25 PM EDTBody Mass Index40.341 12:25 PM EDTdocumented in this encounter Functional Status * AUDIT-C ScoreAnswerDate of TmcbrlpvwrEprcgu232/21/2025 12:35 PM Lizbeth Cadena CMA * QuestionAnswerDate of AssessmentAuthorQ1: How often do you have a drink containing alcohol?Monthly or less09/05/2025 12:35 PM Lizbeth Cadena, SUZANNEQ2: How many drinks containing alcohol do you have on a typical day when you are drinking?1 or 12:35 PM Lizbeth Cadena CMAQ3: How often do you have six or more drinks on one occasion?Never09/05/2025 12:35 PM Lizbeth Cadena CMA documented as of this encounter Progress Notes * Adi Arriaga MD - 09/05/2025 12:30 PM EDT Keira Oliveros Date of visit: 09/05/2025 Date of : 1985 Age: 39 y.o. Patient Active Problem List Diagnosis Elbow pain, right Hematuria, microscopic Bipolar I disorder ([facility]) Generalized anxiety disorder Dizziness Chronic sinusitis Allergic rhinitis Deviated septum S/P nasal septoplasty Facial trauma Nasal septal perforation Status post functional endoscopic sinus surgery (FESS) Borderline personality disorder ([facility]) Nasal septal abscess Chest pain Asthma Other chest pain Allergies Allergen Reactions Ciprofloxacin Hcl Hives Dilaudid [Hydromorphone (Bulk)] Itching hives Levaquin [Levofloxacin] Hives Propoxyphene N-Acetaminophen GI Disturbance and Nausea Saphris [Asenapine] Diarrhea Vicodin [Hydrocodone-Acetaminophen] Nausea Current Outpatient Medications Medication Sig Dispense Refill ascorbic acid, vitamin C, (VITAMIN C) 100 MG tablet Take 1 tablet (100 mg total) by mouth in the morning. cholecalciferol, vitamin D3, 5,000 units tablet Take 1 tablet (5,000 Units total) by mouth in the morning. famotidine (PEPCID) 20 mg tablet Take 2 tablets (40 mg total) by mouth in the morning. glucosamine-chondroitin 500-400 mg tablet Take 1 tablet by mouth in the morning and 1 tablet at noon and 1 tablet before bedtime. hydrocortisone (HYTONE) 1 % cream Apply to affected area 2 times daily 15 g 0 ibuprofen (MOTRIN) 600 mg tablet Take 1 tablet (600 mg total) by mouth every 6 (six) hours as needed for pain. 30 tablet 0 magnesium oxide (MAGOX) 400 mg tablet Take 250 mg by mouth in the morning. metoprolol succinate XL (TOPROL XL) 25 mg 24 hr tablet Take 0.5 tablets (12.5 mg total) by mouth inthe morning. (Patient taking differently: Take 0.5 tablets (12.5 mg total) by mouth in the morning.prn.) 90 tablet 3 microfibrillar collagen (AVITENE) powder Apply 1 Application topically as needed for wound care. ondansetron ODT (ZOFRAN ODT) 4 mg disintegrating tablet Dissolve 1 tablet (4 mg total) on tongue every 8 (eight) hours as needed for nausea or vomiting. 20 tablet 1 VENTOLIN HFA 90 mcg/actuation inhaler INHALE 2 PUFFS EVERY 6 HOURS NEEDED FOR WHEEZING 8 g 2 ascorbic acid/vitamin E/biotin (HAIR, SKIN, NAILS WITH BIOTIN ORAL) Take by mouth. (Patient not taking: Reported on 09/05/2025) ASHWAGANDHA EXTRACT ORAL Take by mouth. (Patient not taking: Reported on 09/05/2025) flaxseed oiL oil by miscellaneous route. (Patient not taking: Reported on 09/05/2025) mometasone (NASONEX) 50 mcg/actuation nasal spray Administer 2 sprays into each nostril in the morning. (Patient not taking: Reported on 09/05/2025) 17 g 0 omega 8-eyn-oju-fish oil (Fish OiL) 300-1,000 mg capsule Take by mouth. (Patient not taking: Reported on 09/05/2025) red beet 500 mg capsule Take by mouth. (Patient not taking: Reported on 09/05/2025) triamcinolone (KENALOG) 0.1 % cream Apply 1 Application topically in the morning and 1 Application before bedtime. (Patient not taking: Reported on 09/05/2025) 30 g 0 No current facility-administered medications for this visit. Chief Complaint Patient presents with Follow-up EST PT, LS RBP, REQ SOONER APPT HAS BEEN HAVING CP AND TAKING ASA FOR IT, SCHED W/PT History of Present Illness Discussed with the patient's situation went over her testing. No definite cardiac etiology to any of her symptoms. She has been diagnosed with empty sella syndrome and needs to see the neurologist wedid give her a recommendation she has a variety of complaints I am not sure all of them could be explained by her diagnosis of empty sella Past Medical History: Diagnosis Date Asthma Back pain Back spasm Bilateral ovarian cysts Bipolar disorder (CMS-HCC) Body piercing facial dermal piercings, pt states they do not come out, left cheek bone Gastric ulcer GERD (gastroesophageal reflux disease) Hip pain both hip IBS (irritable bowel syndrome) Kidney stones Migraines Plantar fasciitis Premenstrual dysphoric disorder Urinary tract infection No data recorded No data recorded No data recorded Past Surgical History: Procedure Laterality Date BALLOON SINUPLASTY Bilateral 01/17/2021 Performed by Lui Montero MD PhD at [facility] BLADDER SURGERY COLONOSCOPY COLONOSCOPY DIAGNOSTIC / SCREENING N/A 12/28/2024 Performed by Mike Garcia MD at [facility] COLPOSCOPY ENDOSCOPIC FUNCTIONAL SINUS SURGERY (FESS) NASAL NAVIGATION SYSTEM N/A 01/17/2021 Performed by Lui Montero MD PhD at [facility] EXPLORATORY LAPAROTOMY HYSTERECTOMY INCISION DRAINAGE MOUTH N/A 10/23/2021 Performed by Lui Montero MD PhD at [facility] INCONTINENCE SURGERY INSERTION BUTTON SEPTAL NASAL Circumferential 01/17/2021 Performed by Lui Montero MD PhD at [facility] LAPAROSCOPIC TOTAL HYSTERECTOMY RESECTION SUBMUCOSAL Bilateral 12/01/2019 Performed by Lui Montero MD PhD at [facility] SEPTOPLASTY SEPTOPLASTY N/A 01/17/2021 Performed by Lui Montero MD PhD at [facility] SEPTOPLASTY N/A 12/01/2019 Performed by Lui Montero MD PhD at [facility] SINUS SURGERY TONSILLECTOMY TONSILLECTOMY ADENOIDECTOMY TUBAL LIGATION WISDOM TOOTH EXTRACTION Family History Problem Relation Age of Onset Anemia Mother Hyperlipidemia Mother Testicular cancer Brother Leukemia Maternal Grandmother Heart attack Maternal Grandfather Leukemia Paternal Grandmother Heart attack Paternal Grandfather Diabetes Paternal Grandfather Pancreatic cancer Paternal Grandfather Vision loss Paternal Grandfather Social History Socioeconomic History Marital status: Spouse name: Not on file Number of children: Not on file Years of education: Not on file Highest education level: Not on file 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 Tobacco Use Smoking status: Former Types: Vaping/E-cigarettes Smokeless tobacco: Never Vaping Use Vaping status: Former Substances: Nicotine, THC Devices: Disposable Substance and Sexual Activity Alcohol use: Yes Comment: socially Drug use: Yes Frequency: 7.0 times per week Types: Marijuana Comment: smoking everyday for pain Sexual activity: Yes Partners: Female control/protection: Surgical Other Topics Concern Caffeine Use Yes Social History Narrative Not on file Social Drivers of Health Financial Resource Strain: Not on file Food Insecurity: No Food Insecurity (09/05/2025) Hunger Screening Food Insecurity - Worry: Never True Food Insecurity - Inability: Never True Transportation Needs: Not on file Physical Activity: Not on file Stress: Not on file Social Connections: Not on file Interpersonal Safety: Not on file Housing Instability: Not on file Review of Systems Review of Systems Constitutional: Positive for chills and malaise/fatigue. HENT: Positive for hoarse voice. Eyes: Positive for blurred vision. Cardiovascular: Positive for chest pain. Respiratory: Positive for shortness of breath. Endocrine: Negative. Hematologic/Lymphatic: Bruises/bleeds easily. Skin: Negative. Musculoskeletal: Positive for back pain, joint swelling and muscle weakness. Gastrointestinal: Negative. Genitourinary: Negative. Neurological: Positive for headaches, loss of balance and numbness. Negative for dizziness. Psychiatric/Behavioral: Positive for depression. The patient is nervous/anxious. Allergic/Immunologic: Positive for environmental allergies. Vascular: Negative. CARDIOVASCULAR: Please review HPI. Physical Examination General appearance: Alert, oriented and cooperative. In no acute distress. Skin: Warm and dry to touch. Head: Normocephalic, without obvious abnormality, atraumatic. Ears, Nose, Mouth, Throat: Throat clear without erythema or exudate. Dentition intact. Eyes: Conjunctivae unremarkable, EOM intact. Neck: No JVD, No carotid bruit. Neck supple, trachea midline. Respiratory: Clear to auscultation bilaterally, no use of accessory muscles. Cardiovascular: RRR with normal S1 and S2 with no murmurs. Gastrointestinal: Soft, non-tender. Bowel sounds normal. Musculoskeletal: No peripheral edema. Neurologic: Oriented to time, person and place, affect appropriate. No focal/major motor defects noted. Psychiatric: Appropriate mood, memory and judgement. VITAL SIGNS: BP 112/80 Pulse 94 Ht 162.6 cm (5' 4 ) Wt 106.6 kg (235 lb) SpO2 97% BMI 40.34 kg/m?? No orders of the defined types were placed in this encounter. There are no discontinued medications. IMPRESSIONS/PLAN There are no diagnoses linked to this encounter. Stable cardiovascular status doubt symptoms from a cardiac cause patient with negative stress test and echo. Follow up p.r.n. TODAYS ORDERS No orders of the defined types were placed in this encounter. FOLLOW UP No follow-ups on file. PCP: LEÓN Galo Referring Physician: LEÓN Galo [address], [address] [address] documented in this encounter Plan of Treatment DateTypeDepartmentCare Team (Latest Contact Info)Tvdjpamdbfc91/29/2025 9:00 AM EDTOffice Visit [facility] [address] [place] [address] Lowell Whitten, HYDRO SPRAYER OPERATOR-SLACK COOPER [address] , [facility] [address] [place] [address] 09/18/2025 9:30 AM ESTOffice Visit [facility] - Jose Lara MD [address] [facility] [address] [place] [id number] Jose Lara MD [address] [facility] [address] [place] [address] documented as of this encounter Visit Diagnoses Diagnosis Other chest pain- Primary documented in this encounter Additional Health Concerns AssessmentNoted TimePHQ-9 Depression Total Score: 11:36 AM ESTA Body Mass Index follow-up plan has been documented for the jgwzfuy0101/17/2025 12:51 PM ESTdocumented as of this encounter Care Teams Team MemberRelationshipSpecialtyStart DateEnd Date Lowell Whitten, HYDRO SPRAYER OPERATOR-SLACK COOPER [address] [place] [address] PCP - GeneralInternal Medicine06/05/25documented as of this encounter
--- OUTSIDE RECORDS SUMMARY | 2025-09-11 09:30 | XMS_ITS | Encounter Summary ---
Author Organization [facility] Address [address] [place] [address] Care Team Providers Care Horse Racer Name Role Phone James Schwartz MD Primary Care Provider + [phone] Reason for Visit * ReasonCommentsGynecologic ExamPelvic Pain Encounter Details DateTypeDepartmentCare Team (Latest Contact Info)Gbejsyzjiud12/27/2025 9:30 AM EDTProcedure Visit [facility] [address] [place] [address] Yashira Manley PA [address] [place] [address] Hormone disorder (Primary Dx); Well woman exam with routine gynecological exam; Hormone imbalance; Pelvic pain in female; Wellness examination; Encounter for screening mammogram for malignant neoplasm of breast Social History Tobacco UseTypesPacks/DayYears UsedDateSmoking Tobacco: Never Assessed CommentsUnknownSex and Gender InformationValueDate RecordedSex Assigned at Not on fileLegal CrnFudnll69/15/2023 6:33 PM EDTGender IdentityNot on fileSexual OrientationNot on filedocumented as of this encounter Last Filed Vital Signs Vital SignReadingTime TakenCommentsBlood Okajhopz163/801 11:46 AM EDT Pulse--Temperature--Respiratory Rate--Oxygen Saturation--Inhaled Oxygen Concentration--Qmaati117 kg (233 lb 12.8 oz)09/11/2025 11:46 AM EDTHeight--Body Mass Index40.1309 12:00 PM EDTdocumented in this encounter Progress Notes * ROHINI Albarran - 09/11/2025 9:30 AM EDT Reason for Appointment: Patient ID: Keira Oliveros is a 39 y.o. female who presents for No chief complaint on file. Patient presents today for Annual Exam. MEDICATIONS No current outpatient medications ALLERGIES Allergies Allergen Reactions Dust Mite Extract Molds & Smuts PROBLEMS Active Ambulatory Problems Diagnosis Date Noted No Active Ambulatory Problems Resolved Ambulatory Problems Diagnosis Date Noted No Resolved Ambulatory Problems Past Medical History: Diagnosis Date Empty sella syndrome (HCC) HISTORY PAST MEDICAL HISTORY SOCIAL HISTORY Past Medical History: Diagnosis Date Empty sella syndrome (HCC) Social History Tobacco Use Smoking status: Not on file Smokeless tobacco: Not on file Substance Use Topics Alcohol use: Not on file Drug use: Not on file FAMILY HISTORY Family History Problem Relation Name Age of Onset Leukemia Paternal Grandmother Pancreatic cancer Paternal Grandfather Brain cancer Cousin Breast cancer Cousin SURGICAL HISTORY Past Surgical History: Procedure Laterality Date HYSTERECTOMY LAPAROSCOPY DIAGNOSTIC / BIOPSY / ASPIRATION / LYSIS REVIEW OF SYSTEMS Review of Systems: Review of Systems Constitutional: Negative. HENT: Negative. Eyes: Negative. Respiratory: Negative. Cardiovascular: Negative. Gastrointestinal: Negative. Genitourinary: Negative. Musculoskeletal: Negative. Skin: Negative. Neurological: Negative. All other systems reviewed and are negative. Hematological: Negative. Endocrine: Negative. Allergic/Immunologic: Negative. OBJECTIVE Objective: Physical Exam Constitutional: Appearance: Normal appearance. Genitourinary: Right Adnexa: not tender and no mass present. Left Adnexa: not tender and no mass present. No cervical discharge. Breasts: Breasts are soft. Right: Normal. Left: Normal. HENT: Head: Normocephalic. Nose: Nose normal. Mouth/Throat: Mouth: Mucous membranes are moist. Cardiovascular: Rate and Rhythm: Normal rate. Pulmonary: Effort: Pulmonary effort is normal. Abdominal: General: Bowel sounds are normal. Palpations: Abdomen is soft. Musculoskeletal: General: Normal range of motion. Cervical back: Normal range of motion. Neurological: General: No focal deficit present. Mental Status: She is alert. Skin: General: Skin is warm and dry. Psychiatric: Mood and Affect: Mood normal. Vitals and nursing note reviewed. Exam conducted with a package checker present. Vitals: Estimated body mass index is 40.13 kg/m?? as calculated from the following: Height as of 08/05/22: 5' 4 . Weight as of an earlier encounter on 09/11/25: 233 lb 12.8 oz. BP: No LMP recorded. Patient has had a hysterectomy. Assessment/Plan No diagnosis found. Patient with complaints of pelvic pain, hormone complaints , vaginal discharge. She discussed her diagnosis of empty sella syndrome in June of this year. Today hormone labs will be obtained and a pelvic ultrasound. Patient had history of pelvic pain in the past and diagnostic lap greater than 3 years ago. Patient states she continues to have pain and would like to have another diagnostic lap toreassure her there is not adhesions or ovarian cyst causing her pain. Pt requests buderer labs and US to be ordered. She will follow up with DR Oviedo and get scheduled for DX lap with possible hysteroscopy Documented by ROHINI Albarran on behalf of: ROHINI Albarran documented in this encounter Miscellaneous Notes * Addendum Note - Lakeshia Piper LPN - 09/11/2025 9:30 AM EDTAddended by: LAKESHIA PIPER on: 09/11/2025 01:05 PM Modules accepted: Orders documented in this encounter Plan of Treatment DateTypeDepartmentCare Team (Latest Contact Info)Lsnnlceifkk32/10/2025 1:30 PM ESTAncillary Procedure [facility]REA TAM [address] [place] [address] 10/25/2025 2:40 PM ESTConsult [facility]REA TAM [address] [place] [address] Richard Oviedo DO [address] [place] [address] NameTypePriorityAssociated DiagnosesOrder ScheduleEstradiolLabRoutine Hormone disorder Ordered: 09/11/2025EstroneLabRoutine Hormone disorder Ordered: 09/11/2025ortisol, freeLabRoutine Hormone disorder Ordered: 09/11/2025DHEA-sulfateLabRoutine Hormone disorder Ordered: 09/11/2025Sex hormone binding globulinLabRoutine Hormone disorder Ordered: 09/11/2025Insulin, totalLabRoutine Hormone disorder Ordered: 09/11/2025Serotonin serumLabRoutine Hormone disorder Ordered: 09/11/2025TSHLabRoutine Hormone disorder Ordered: 09/11/2025T4, freeLabRoutine Hormone disorder Ordered: 09/11/2025T3, reverseLabRoutine Hormone disorder Ordered: 09/11/2025ProgesteroneLabRoutine Hormone disorder Ordered: 09/11/2025Vitamin D 1,25 dihydroxyLabRoutine Hormone disorder Ordered: 09/11/2025FerritinLabRoutine Hormone disorder Ordered: 09/11/2025T3, freeLabRoutine Hormone disorder Ordered: 09/11/2025ThyroglobulinLabRoutine Hormone disorder Ordered: 09/11/2025Thyroglobulin AntibodyLabRoutine Hormone disorder Ordered: 09/11/2025Thyroid peroxidase antibodyLabRoutine Hormone disorder Ordered: 09/11/20253337Z9SvbMoenqhy Hormone disorder Ordered: 09/11/2025TESTOSTERONE, FREELabRoutine Hormone disorder Ordered: 09/11/2025Testosterone, free, totalLabRoutine Hormone disorder Ordered: 09/11/2025Hemoglobin L4fSryWvljriz Hormone disorder Ordered: 09/11/2025Glucose, randomLabRoutine Hormone disorder Ordered: 09/11/2025-peptideLabRoutine Hormone disorder Ordered: 09/11/2025US Pelvis w/ TVImagingRoutine Pelvic pain in female Expected: 09/11/2025, Expires: 03/12/2026SURESWAB(R) ADVANCED VAGINITIS PLUS, TMAPathology and CytologyRoutine Pelvic pain in female Ordered: 09/11/2025HLAMYDIA TRACHOMATIS (GENITO/STI)LabRoutine Pelvic pain in female Ordered: 09/11/2025Neisseria gonorrhea DNA probe, directLabRoutine Pelvic pain in female Ordered: 09/11/2025Pap SmearPathology and CytologyRoutine Well woman exam with routine gynecological exam Ordered: 09/11/2025HPV DNA probe, amplifiedMicrobiologyRoutine Well woman exam with routine gynecological exam Ordered: 09/11/2025documented as of this encounter Visit Diagnoses Diagnosis Hormone disorder- Primary Unspecified endocrine disorder Well woman exam with routine gynecological exam Routine gynecological examination Hormone imbalance Pelvic pain in female Unspecified symptom associated with female genital organs Wellness examination Encounter for screening mammogram for malignant neoplasm of breast documented in this encounter Care Teams Team MemberRelationshipSpecialtyStart DateEnd Date James Schwartz MD PCP - GeneralFamily Medicine11/23/24documented as of this encounter
--- OUTSIDE RECORDS SUMMARY | 2025-09-11 20:12 | XMS_ITS | Clinical Summary ---
Author Organization [facility] Address [address] [place] [address] Care Team Providers Care Third Cook Name Role Phone James Schwartz MD Primary Care Provider + [phone] Allergies Active AllergyReactionsCriticalityNoted DateCommentsDust Mite Tiymsrd0609/11/2025 Molds & Smuts09/11/2025 Medications No known medications Encounters DateTypeDepartmentCare PqcjXpvktpsjnmi41/27/2025 9:30 AM EDTProcedure Visit [facility] [address] [facility] [facility] [address] Yashira Manley PA Hormone disorder (Primary Dx); Well woman exam with routine gynecological exam; Hormone imbalance; Pelvic pain in female; Wellness examination; Encounter for screening mammogram for malignant neoplasm of qiviip3909/11/2025 Bamboo flowsheet [facility] [address] [place] [address] Yashira Manley PA from Last 3 Months Family History Medical HistoryRelationNameCommentsBrain cancerCousin 1Breast cancerCousin 2 Pancreatic cancerPaternal GrandfatherLeukemiaPaternal GrandmotherRelationName StatusCommentsCousin 1OtherCousin 2AlivePaternal GrandfatherPaternal Grandmother Social History Tobacco UseTypesPacks/DayYears UsedDateSmoking Tobacco: Never Assessed CommentsUnknownSex and Gender InformationValueDate RecordedSex Assigned at Not on fileLegal RglHihluu02/15/2023 6:33 PM EDTGender IdentityNot on fileSexual OrientationNot on file Last Filed Vital Signs Vital SignReadingTime TakenCommentsBlood Mvcrmnzw943/801 11:46 AM EDT Pulse--Temperature--Respiratory Rate--Oxygen Saturation--Inhaled Oxygen Concentration--Yvkbdv980 kg (233 lb 12.8 oz)09/11/2025 11:46 AM SHLShzvfx497.6 cm (5' 4 )08/05/2022 12:00 PM EDTBody Mass Index40.13008/05/2022 12:00 PM EDT Plan of Treatment DateTypeDepartmentCare Team (Latest Contact Info)Cldiqpdyfco91/10/2025 1:30 PM ESTAncillary Procedure [facility] [address] [facility] [place] [address] 10/25/2025 2:40 PM ESTConsult [facility] OBTRIN [address] [facility] [place] [address] Richard Oviedo DO [address] [facility] [facility] [address] [place], [place] [address] Procedures Procedure NamePriorityDate/TimeAssociated DiagnosisCommentsPOCT URINALYSIS MABAKCUKNssvxrn54/27/2025 10:00 AM EDT Pelvic pain in female from Last 3 Months Results * (ABNORMAL) POCT urinalysis dipstick manually resulted (09/11/2025 10:00 AM EDT)ComponentValueRef RangeTest MethodAnalysis TimePerformed AtPathologist SignatureColor, UAYellowClarity, UAClearGlucose, UANegativeNegative - 1999(110) ++++ mg/dLBilirubin, UANegativeNegative - 4(70) +++ mg/dLKetones, UA NegativeNegative - 160(16) ++++ mg/dLSpec Grav, UA1.0251 - 1.03Blood, UA PositiveNegative - 50 Jimmie/mcLComment:2+pH, UA5.55 - 9Protein, UANegative Negative - 1999(20) ++++ mg/dLUrobilinogen, UA1.00.2 - 12 mg/dLLeukocytes, UA NegativeNegative - 500+++ Melody/mcLNitrite, UANegativeNegative - Positive Specimen (Source)Anatomical Location / LateralityCollection Method / Volume Collection TimeReceived WhziFqqqf15/27/2025 10:00 AM EDT Narrative Authorizing ProviderResult TypeResult StatusAmy [facility] CARE TEST ENTER/EDIT ORDERABLESFinal Result from Last 3 Months Insurance Care Teams Team MemberRelationshipSpecialtyStart DateEnd Date James Schwartz MD PCP - [facility]11/23/24
--- OUTSIDE RECORDS SUMMARY | 2025-09-11 20:12 | XMS_ITS | Encounter Summary ---
Author Organization [facility] Address [address] [facility] [address] Care Team Providers Care Insurance Application Investigator Name Role Phone James Schwartz MD Primary Care Provider + [phone] Encounter Details DateTypeDepartmentCare Team (Latest Contact Info)Abjozilmnxq17/27/2025amboo flowsheet [facility] [address] [place] [address] [place] [address] Yashira Manley PA [address] [place], [facility] Social History Tobacco UseTypesPacks/DayYears UsedDateSmoking Tobacco: Never Assessed CommentsUnknownSex and Gender InformationValueDate RecordedSex Assigned at Not on fileLegal PmsXqajjq59/15/2023 6:33 PM EDTGender IdentityNot on fileSexual OrientationNot on filedocumented as of this encounter Plan of Treatment DateTypeDepartmentCare Team (Latest Contact Info)Butjfnijbqk37/10/2025 1:30 PM ESTAncillary Procedure [facility] [address] [place] [address] [place] [address] 10/25/2025 2:40 PM ESTConsult [facility] [address] [place] [address] [place] [address] Richard Oviedo DO [address] [facility] [place] [address] documented as of this encounter Visit Diagnoses Not on filedocumented in this encounter Care Teams Team MemberRelationshipSpecialtyStart DateEnd Date James Schwartz MD PCP - GeneralFamily Medicine11/23/24documented as of this encounter
--- OUTSIDE RECORDS SUMMARY | 2025-09-11 20:13 | XMS_ITS | Patient Health Record ---
Author Organization [facility] in [place] Address [address] [place] [address] Care Team Providers Care Tamping Machine Operator Name Role Phone None, Unknown or Primary Care Provider Unavailab le Reason For Referral No Information Medications Medication SIG (Take, Route, Frequency, Duration) Notes Start Date End Date Status Melatonin ActiveAleve sodium 220 fskwflba25/01/7621XpgvguSabrbmpvmntk77/01/1900 ActiveVESIcare 5 mg1 DAILY; Duration: 30 days01/23/20150054MufeefTokhtuxid77/01/1900 NnhwukTegxJS74/01/1900Active Problems Problem Type SNOMED Code ICD Code Onset Dates Problem Status W/U Status Risk Notes Problem Chest pain (10756564) Chest pain (R07.9) Activeconfirmed Plan Of Treatment No Information
--- OUTSIDE RECORDS SUMMARY | 2025-09-11 20:13 | XMS_ITS | Clinical Summary ---
Author Organization [facility] Address [address] [address] [place] [address] Care Team Providers Care Respiratory Care Assistant Name Role Phone Unavailable Primary Care Provider Unavailabl e Source Comments PLEASE NOTE, if this patient is a minor, it may be UNLAWFUL to discuss sensitive information that is contained in these records (such as FAMILY PLANNING, MENTAL HEALTH or SUBSTANCE ABUSE) with the minor patient's parent or other person without the patient's specific authorization.[facility] Social History Tobacco UseTypesPacks/DayYears UsedDateSmoking Tobacco: Never Assessed CommentsUnknownSex and Gender InformationValueDate RecordedSex Assigned at Kfqxbi1704/28/2025 2:57 PM PDTLegal ObrNwmklx12/13/2025 1:55 PM PDTGender Identity Mlygfr9504/28/2025 2:57 PM PDTSexual MmcqfgilqukJivvftx89/13/2025 2:57 PM PDT Plan of Treatment Health MaintenanceDue DateLast DoneCommentsAnxiety Szxvrczpv1985HPV Screening (self-collect)1985HPV Hqrziioyc1985Hepatitis C Screening 1985Pap + HPV1985Tobacco Icnyihpes1985Relationship Safety Screening/Pdirrscevk25/19/2000Hypertension Screening (#1)2003Imm-Hepatitis B (1 of 3 - 19+ 3-dose series)2004Cervical Cancer Ihvwqdkdq30/19/2006Pap Smear2006Imm-HPV (1 - 3-dose SCDM series)2012lcohol and Drug Screen 11/16/2024Depression Annual Wxrcqj0011/16/20241591Ucd-NDLJH-98 ( season) 2025Imm-Influenza (#1), 08/27/2007, 09/03/2006Diabetes Qgugzssyz25, 01/03/2025Imm-DTaP/Tdap/Td (3 - Td or Tdap) , 12/10/2012HIV CfrayfsdwUfkwpfseo82/13/2025ervical Ablation/Cold-Knife ConizationDiscontinuedCervical CryotherapyDiscontinued ColposcopyDiscontinuedExcision/LeepDiscontinuedHPV GenotypingDiscontinuedVaginal PapDiscontinuedVulvoscopyDiscontinued Procedures Procedure NamePriorityDate/TimeAssociated DiagnosisCommentsSYPHILIS/HIV 4 RFX RNA TDMRAJythiqm31/13/2025 5:32 PM EDT Screening examination for sexually transmitted disease from Last 3 Months or Most Recently Relevant to Health Maintenance Results * SYPHILIS/HIV 4 RFX RNA COMBO Routine (04/28/2025 5:32 PM EDT)ComponentValueRef RangeTest MethodAnalysis TimePerformed AtPathologist SignatureSyph/HIV 4 RFX RNA Combo - HIV 4HIV-1/2 Non-reactiveCENTER FOR DISEASE [facility] ([facility]) Comment: For specimens testing repeatedly reactive for HIV-1/HIV-2 and negative or indeterminate by HIV-1 Western Blot, further testing for HIV-2 is recommended. The interpretation of results for specimens found to be repeatedly reactive for HIV-1/HIV-2 EIA and negative or indeterminate by HIV-1 and HIV-2 Western Blot may be aided by repeat testing in three to six months. Syph/HIV 4 RFX RNA Combo - SyphilisCIA Fph-mhbkbscuDkq-bvwhupelXKSDZM FOR DISEASE DETECTION ([facility])Comment: Infection with T. pallidum (cause of syphilis) unlikely (early primary syphilis cannot be excluded). Request additional testing if syphilis is clinically suspected. SANDRA: Chemiluminescence immunoassay Specimen (Source)Anatomical Location / LateralityCollection Method / Volume Collection TimeReceived TimeBloodBlood / Umrmwrm5904/28/2025 5:32 PM EDT05/02/2025 Narrative Authorizing ProviderResult TypeResult StatusLogan Jhon WONGCNPLAB - BLOOD DRAWFinal ResultPerforming OrganizationAddressCity/State/ZIP CodePhone Number [facility] [phone] [address], from Last 3 Months or Most Recently Relevant to Health Maintenance
--- OUTSIDE RECORDS SUMMARY | 2025-09-11 20:13 | XMS_ITS | Encounter Summary ---
Author Organization [facility] Address [id number] [address] [place] [address] Care Team Providers Care Battalion Fire Chief Name Role Phone Lowell Whitten Davy WONG-DIRECTOR OF CATERING Primary Care Provider + Encounter Details DateTypeDepartmentCare Team (Latest Contact Info)Fjjsgysemqe13/21/2025Travel Social History Tobacco UseTypesPacks/DayYears UsedDateSmoking Tobacco: Former Vaping/E-cigarettesSmokeless Tobacco: NeverAlcohol UseStandard Drinks/Week CommentsYes0 (1 standard drink = 0.6 oz pure alcohol)sociallyPHQ-2AnswerDate RecordedTotal Yzklj5675AUDIT-CAnswerDate RecordedQ1: How often do you have a drink containing alcohol?Monthly or less09/05/2025Q2: How many drinks containing alcohol do you have on a typical day when you are drinking?1 or 2 09/05/2025Q3: How often do you have six or more drinks on one occasion?Never 09/05/2025hildcareAnswerDate GjobplzaPazexwpdiMtspswo07/11/2019EmploymentAnswer Date ThhwufqyDrcgredzxnZfsrwwb37/11/2019Hunger ScreeningAnswerDate Recorded Within the past 12 months we worried whether our food would run out before we got money to buy more.Never True09/05/2025Within the past 12 months the food we bought just didn't last and we didn't have money to get more.Never True 09/05/2025Purpose - LifeAnswerDate RecordedPurpose and direction in lifeUnknown 1CommentsNoSex and Gender InformationValueDate RecordedSex Assigned at JnjqfSaerca13/31/2025 9:02 AM EDTLegal OjvIemrjr45/06/2015 11:28 AM EDTGender LjvbappqEmzzxz78/31/2025 9:02 AM EDTSexual OrientationStraight 02/13/2025 9:02 AM EDTOccupationIndustryJob Start DateJob End DateSTNANot on fileNot on fileNot on filedocumented as of this encounter Functional Status * AUDIT-C ScoreAnswerDate of DdszltjrtwNuwdmt528/21/2025 12:35 PM Lizbeth Cadena CMA * QuestionAnswerDate of AssessmentAuthorQ1: How often do you have a drink containing alcohol?Monthly or less09/05/2025 12:35 PM Lizbeth Cadena CMAQ2: How many drinks containing alcohol do you have on a typical day when you are drinking?1 or 12:35 PM Lizbeth Cadena CMAQ3: How often do you have six or more drinks on one occasion?Never09/05/2025 12:35 PM Lizbeth Cadena CMA documented as of this encounter Plan of Treatment DateTypeDepartmentCare Team (Latest Contact Info)Ydzdsebykxd39/29/2025 9:00 AM EDTOffice Visit [facility] [address] [place] [address] Lowell Whitten, COMMERCIAL CREDIT OFFICER-DIRECTOR OF CATERING [address], [facility] [address] [place] [address] 09/18/2025 9:30 AM ESTOffice Visit [facility] Neurology - Jose Lara MD [address] [facility] [address] [place] [address] Jose Lara MD [address] [facility], [facility] [address] [place] [address] documented as of this encounter Visit Diagnoses Not on filedocumented in this encounter Additional Health Concerns AssessmentNoted TimePHQ-9 Depression Total Score: 11:36 AM ESTA Body Mass Index follow-up plan has been documented for the ftiasrt5401/17/2025 12:51 PM ESTdocumented as of this encounter Care Teams Team MemberRelationshipSpecialtyStart DateEnd Date Lowell Whitten, COMMERCIAL CREDIT OFFICER-DIRECTOR OF CATERING [address] [place] [address] PCP - GeneralInternal Medicine06/05/25documented as of this encounter
--- OUTSIDE RECORDS SUMMARY | 2025-09-11 20:13 | XMS_ITS | Encounter Summary ---
Author Organization [facility] Address [id number] [address] [place] [address] Care Team Providers Care Family Therapist Name Role Phone Lowell Whitten SUPERVISOR QUALITY CONTROL-GR[employer]ER [employer] Primary Care Provider + Encounter Details DateTypeDepartmentCare Team (Latest Contact Info)Cwcsxqulpyd17/20/2025Telephone [facility] Cardiology [address] [place] [address] Annetta Mcpherson MA Social History Tobacco UseTypesPacks/DayYears UsedDateSmoking Tobacco: Every Day Vaping/E-cigarettesSmokeless Tobacco: NeverAlcohol UseStandard Drinks/Week CommentsYes0 (1 standard drink = 0.6 oz pure alcohol)sociallyPHQ-2AnswerDate RecordedTotal Qzljx2265AUDIT-CAnswerDate RecordedQ1: How often do you have a drink containing alcohol?Monthly or less09/05/2025Q2: How many drinks containing alcohol do you have on a typical day when you are drinking?1 or 2 09/05/2025Q3: How often do you have six or more drinks on one occasion?Never 5ChildcareAnswerDate CjmejtfkAnvdwnlseKbzcaay01/11/2019EmploymentAnswer Date DdnkmkrfLultkykpbvXkysfys05/11/2019Hunger ScreeningAnswerDate Recorded Within the past 12 months we worried whether our food would run out before we got money to buy more.Never True09/05/2025Within the past 12 months the food we bought just didn't last and we didn't have money to get more.Never True 09/05/2025Purpose - LifeAnswerDate RecordedPurpose and direction in lifeUnknown 1CommentsNoSex and Gender InformationValueDate RecordedSex Assigned at BvhatSbngbm53/31/2025 9:02 AM EDTLegal IiqGaifhp91/06/2015 11:28 AM EDTGender AlugawjtNvdidb48/31/2025 9:02 AM EDTSexual OrientationStraight 02/13/2025 9:02 AM EDTOccupationIndustryJob Start DateJob End DateSTNANot on fileNot on fileNot on filedocumented as of this encounter Miscellaneous Notes * Telephone Encounter - Annetta Mcpherson MA - 09/04/2025 10:42 AM EDT Called patient to remind them to bring their most current copy of their medication list with them to their appt. No Answer, VM full, unable to leave message. JLW documented in this encounter Plan of Treatment DateTypeDepartmentCare Team (Latest Contact Info)Wjyvwjqqdkq90/29/2025 9:00 AM EDTOffice Visit [facility] - Family Medicine [address] [place] [address] Lowell Whitten, SUPERVISOR QUALITY CONTROL-GR[employer]ER W[employer]S [address], [facility] [address] [place] [address] 09/18/2025 9:30 AM ESTOffice Visit [facility] Neu[facility] - Jose Lara MD [address] [facility] [address] [place] [address] Jose Lara MD [address] [facility], [facility] [address] [place] [address] documented as of this encounter Visit Diagnoses Not on filedocumented in this encounter Additional Health Concerns AssessmentNoted TimePHQ-9 Depression Total Score: 11:36 AM ESTA Body Mass Index follow-up plan has been documented for the pcnkazz5201/17/2025 12:51 PM ESTdocumented as of this encounter Care Teams Team MemberRelationshipSpecialtyStart DateEnd Date Lowell Whitten, SUPERVISOR QUALITY CONTROL-GR[employer]ER [employer]S [address] [place] [address] PCP - GeneralInternal Medicine06/05/25documented as of this encounter
--- OUTSIDE RECORDS SUMMARY | 2025-09-11 20:13 | XMS_ITS | Encounter Summary ---
Author Organization [facility] tem Address [id number] [address] [place] [address] Care Team Providers Care Showcase Maker Name Role Phone Lowell Whitten Davy WONG-LABORER [employer]SEM[employer] Primary Care Provider + Reason for Visit * ReasonOnset DloyNoxrtinyOjkcqeeniae66/23/2025 Encounter Details DateTypeDepartmentCare Team (Latest Contact Info)Mtpskbzjjvn35/23/2025Telephone [facility] Neurology, A Department of [facility] [address] [facility] [address] [place] [address] Yashira Barba Appointment Social History Tobacco UseTypesPacks/DayYears UsedDateSmoking Tobacco: Former Vaping/E-cigarettesSmokeless Tobacco: NeverAlcohol UseStandard Drinks/Week CommentsYes0 (1 standard drink = 0.6 oz pure alcohol)sociallyPHQ-2AnswerDate RecordedTotal Ptgrd8105AUDIT-CAnswerDate RecordedQ1: How often do you have a drink containing alcohol?Monthly or less09/05/2025Q2: How many drinks containing alcohol do you have on a typical day when you are drinking?1 or 2 09/05/2025Q3: How often do you have six or more drinks on one occasion?Never 5ChildcareAnswerDate JzzqpausYlotxvtutTgvjvnu68/11/2019EmploymentAnswer Date NhufamazVqgijrhbqaYdsxsir40/11/2019Hunger ScreeningAnswerDate Recorded Within the past 12 months we worried whether our food would run out before we got money to buy more.Never True10/21/2025Within the past 12 months the food we bought just didn't last and we didn't have money to get more.Never True 09/05/2025Purpose - LifeAnswerDate RecordedPurpose and direction in lifeUnknown 1CommentsNoSex and Gender InformationValueDate RecordedSex Assigned at QmkjqOrjxpz31/31/2025 9:02 AM EDTLegal MeqWbvrcf39/06/2015 11:28 AM EDTGender PingrccrUffxlc69/31/2025 9:02 AM EDTSexual OrientationStraight 02/13/2025 9:02 AM EDTOccupationIndustryJob Start DateJob End DateSTNANot on fileNot on fileNot on filedocumented as of this encounter Miscellaneous Notes * Telephone Encounter - Yashira Barba - 09/07/2025 3:56 PM EDT Cake Maker received a call from patient regarding appointment. Patient Empty sella turcica new diagnosis, scheduled 09/18/25 documented in this encounter Plan of Treatment DateTypeDepartmentCare Team (Latest Contact Info)Qbiwpiwzgxw72/29/2025 9:00 AM EDTOffice Visit [facility] - [facility] [address] [place] [address] Lowell Whitten, FLOORLEADER-LABORER [employer]ITION [employer]SEMBL[employer] [address], [facility] [address] [place], [place] [id number] 09/18/2025 9:30 AM ESTOffice Visit [facility] Neurology - Jose Lara MD [address] [facility] [address] [place] [address] Jose Lara MD [address] [facility], [facility] [address] [place] [address] documented as of this encounter Visit Diagnoses Not on filedocumented in this encounter Additional Health Concerns AssessmentNoted TimePHQ-9 Depression Total Score: 11:36 AM ESTA Body Mass Index follow-up plan has been documented for the canhgee7801/17/2025 12:51 PM ESTdocumented as of this encounter Care Teams Team MemberRelationshipSpecialtyStart DateEnd Date Lowell Whitten, FLOORLEADER-LABORER [employer]SEMBL[employer] [address] [place] [address] PCP - GeneralInternal Medicine06/05/25documented as of this encounter
--- OUTSIDE RECORDS SUMMARY | 2025-09-11 20:13 | XMS_ITS | Patient Health Record ---
Author Organization [facility] vices Address [address] [place], [place] [id number] Care Team Providers Care Used Car Lot Attendant Name Role Phone Soniaraquel Joey Primary Care Provider Allergies Allergen (clinical drug ingredient) Drug/Non Drug Allergy documented on EMR Reaction Allergy Type Onset Date Status hydromorphone Dilaudid Unknown Drug Allergy ActiveLevaquinUnknownDrug AllergyActiveciprofloxacinCiprofloxacinUnknownDrug AllergyActive Reason For Referral No Information Medications Medication [...] History Observation Description Sex Assigned At Female Plan Of Treatment No Information Insurance Providers Payer Name Payer Address Payer Phone Subscriber Number Group Number Insured Name Patient Relationship to Insured Coverage Start Date Coverage End Date [employer] [address] [address] [place] [address] [id number] Maria M Oliveros - patient is the [id number] 2024Medicaid CF after [address] [place], [place] [id number] - patient is the insured 2024 Medical (General) History Medical History History ICD Code Asthma J45.909 Bipolar depression F31.9 Surgical History Surgery Date(Month/Year) EXTENSIVE HYSTERECTOMY tonsillectomywisdom teeth removalHospitalization History Reason Date(Month/Year) overdose [id number]
--- OUTSIDE RECORDS SUMMARY | 2025-09-11 20:13 | XMS_ITS | Clinical Summary ---
Author Organization Sqwiggle s tem Address [id number] [address] [place] [address] Care Team Providers Care Lgsw Name Role Phone BobbiabdulazizHeberJennifer WONG-CABINETMAKER MAINTENANCE Primary Care Provider + Allergies Active AllergyReactionsCriticalityNoted DateCommentsCiprofloxacin HclHivesLow 06/19/2016Hydromorphone (Bulk)RozsvrlCrn34/04/2016 hives EhuxtqkyzylaOvqibLqo05/04/2016Propoxyphene N-AcetaminophenGI Disturbance,Nausea Low06/19/20164621ZrbxoyakeIphjeggxJum37/04/2016Hydrocodone-AcetaminophenNauseaLow 06/19/2016 Medications * This document contains information received from the source organization and may not represent a complete record from that organization. MedicationSigDispense QuantityRefillsLast FilledStart DateEnd DateStatus cholecalciferol, vitamin D3, 5,000 units tablet Take 1 tablet (5,000 Units total) by mouth in the morning.Active VENTOLIN HFA 90 mcg/actuation inhaler Indications:SOB (shortness of breath)INHALE 2 PUFFS EVERY 6 HOURS NEEDED FOR WHEEZING 8 g ctive omega 5-awc-qyb-fish oil (Fish OiL) 300-1,000 mg capsule Take by mouth.Active ASHWAGANDHA EXTRACT ORAL Take by mouth.Active glucosamine-chondroitin 500-400 mg tablet Take 1 tablet by mouth in the morning and 1 tablet at noon and 1 tablet before bedtime.Active microfibrillar collagen (AVITENE) powder Apply 1 Application topically as needed for wound care.Active ascorbic acid, vitamin C, (VITAMIN C) 100 MG tablet Take 1 tablet (100 mg total) by mouth in the morning.Active ascorbic acid/vitamin E/biotin (HAIR, SKIN, NAILS WITH BIOTIN ORAL) Take by mouth.Active red beet 500 mg capsule Take by mouth.Active flaxseed oiL oil by miscellaneous route.Active ondansetron ODT (ZOFRAN ODT) 4 mg disintegrating tablet Indications:NauseaDissolve 1 tablet (4 mg total) on tongue every 8 (eight) hours as needed for nausea or vomiting. 20 tablet 5Active magnesium oxide (MAGOX) 400 mg tablet Take 250 mg by mouth in the morning.Active famotidine (PEPCID) 20 mg tablet Take 2 tablets (40 mg total) by mouth in the morning.Active metoprolol succinate XL (TOPROL XL) 25 mg 24 hr tablet Take 0.5 tablets (12.5 mg total) by mouth in the morning. 90 tablet 5Active Additional Information Patient taking differently:12.5 mg oral Daily, Morning,prn, Reported on 09/05/2025 mometasone (NASONEX) 50 mcg/actuation nasal spray Administer 2 sprays into each nostril in the morning. 17 g 5Active Additional Information Patient not taking.Reported on 09/05/2025 hydrocortisone (HYTONE) 1 % cream Apply to affected area 2 times daily 15 g 5Active ibuprofen (MOTRIN) 600 mg tablet Take 1 tablet (600 mg total) by mouth every 6 (six) hours as needed for pain. 30 tablet 5Active triamcinolone (KENALOG) 0.1 % cream Apply 1 Application topically in the morning and 1 Application before bedtime. 30 g 5Active Additional Information Patient not taking.Reported on 09/05/2025 Active Problems ProblemNoted DateDiagnosed DateOther chest pain01/30/2025hest pain01/24/2025 Nasal septal clvzqok5510/22/2021orderline personality wriicyvn80/22/2021tatus post functional endoscopic sinus surgery (FESS)01/23/2021Nasal septal dgfaejrihap31/22/2021Facial rcnpbd7312/28/2019S/P nasal ejvyfifopwv40/27/2020 Ehvzxfujm62/25/2019Chronic kilbuwwaa76/25/2019Allergic yjpyjksa77/25/2019 Deviated vqtsbc9310/10/2019Bipolar I nmfmspaw88/28/2018Generalized anxiety kypjtzmo35/28/7588Cukprq42/13/2018Elbow pain, right03/26/2017Hematuria, /11/2017 Encounters DateTypeDepartmentCare AsnuGnvszxzwrku07/23/2025Telephone [facility], A Department of [facility] [address] [place] [address] Yashira Barba Niuylkrxqlr56/21/2025 12:30 PM EDTOffice Visit [facility] [address] [place] [phone] Tyler Hale MD Pappas, Thomas M, MD Other chest pain (Primary Dx)09/05/20255999Nkufeu26/20/2025[facility]phone [facility] [address] [place] [phone] Annetta Mcpherson MA 07/16/2025 5:33 PM EDT - 07/16/2025 7:49 [address] [facility]TEst[address] [facility] - [facility] [address] [place] [phone] Arley Delvalle, DO Empty sella turcica (Primary Dx); Follow-up medical care requested by patient Discharge Disposition: Home07/16/20256577Lkuxus26/26/2025 9:33 PM EDT - 07/11/2025 10:[facility] [address] [place] [phone] Venkat Abad MD Rash (Primary Dx); History of asthma Discharge Disposition: Home07/11/20256147Nsgnjt09/16/2025 9:01 PM EDT - 07/01/2025 9:46 PM [facility] [address] [place] [phone] Nick Salinas, DO Irritant contact dermatitis, unspecified trigger (Primary Dx) Discharge Disposition: Home07/01/2025Travelfrom Last 3 Months Immunizations ImmunizationAdministration DatesNext UhwOjrs0102/14/2018 Family History Medical HistoryRelationNameCommentsTesticular cancerBrotherHeart attackMaternal GrandfatherLeukemiaMaternal GrandmotherAnemiaMotherHyperlipidemiaMotherDiabetes Paternal GrandfatherHeart attackPaternal GrandfatherPancreatic cancerPaternal GrandfatherVision lossPaternal GrandfatherLeukemiaPaternal GrandmotherRelation NameStatusCommentsBrotherFatherAliveMaternal GrandfatherMaternal Grandmother MotherAlivePaternal GrandfatherPaternal Grandmother Social History Tobacco UseTypesPacks/DayYears UsedDateSmoking Tobacco: Former Vaping/E-cigarettesSmokeless Tobacco: Never Tobacco Cessation:Counseling Given: Not Answered Alcohol UseStandard Drinks/WeekCommentsYes0 (1 standard drink = 0.6 oz pure alcohol)sociallyPHQ-2AnswerDate RecordedTotal Mofoe7565AUDIT-CAnswerDate RecordedQ1: How often do you have a drink containing alcohol?Monthly or less 09/05/2025Q2: How many drinks containing alcohol do you have on a typical day when you are drinking?1 or Q3: How often do you have six or more drinks on one occasion?Never5ChildcareAnswerDate RecordedChildcare Psvqvex8004/26/2019EmploymentAnswerDate FqzxgqkhHodsykwphwDompajt05/11/2019Hunger ScreeningAnswerDate RecordedWithin the past 12 months we worried whether our food would run out before we got money to buy more.Never True09/05/2025Within the past 12 months the food we bought just didn't last and we didn't have money to get more.Never True09/05/2025Purpose - LifeAnswerDate RecordedPurpose and direction in spgrLfutohe20/25/2021CommentsNoSex and Gender Information ValueDate RecordedSex Assigned at BmsecByhxxy16/ 9:02 AM EDTLegal Sex Oetzos8506/21/2015 11:28 AM EDTGender GcjoyiesRkjske01/31/2025 9:02 AM EDTSexual GcyphmeusjoBbrvgeot74/31/2025 9:02 AM EDTOccupationIndustryJob Start DateJob End DateSTNANot on fileNot on fileNot on file Last Filed Vital Signs Vital SignReadingTime TakenCommentsBlood Oivcawch236/801 12:25 PM EDT Khopx683009/05/2025 12:25 PM VYCCptyhdhnyhq88.7 ??C (98.1 ??F)07/16/2025 5:39 PM EDTRespiratory Tjqz277507/16/2025 7:49 PM EDTOxygen Nelybmnacg64%09/05/2025 12:25 PM EDTInhaled Oxygen Concentration--Qtxqhr480.6 kg (235 lb)09/05/2025 12:25 PM UFMMyhhvy896.6 cm (5' 4 )09/05/2025 12:25 PM EDTBody Mass Index40.341 12:25 PM EDT Plan of Treatment DateTypeDepartmentCare Team (Latest Contact Info)Tdgfkqzyatt26/29/2025 9:00 AM EDTOffice Visit [facility] Medicine [address] [place] [phone] Lowell Whitten, FIRE EXTINGUISHER CHARGER-CABINETMAKER MAINTENANCE [address], [facility] [address] [place] [address] 09/18/2025 9:30 AM ESTOffice Visit [facility] - Jose Lara [facility] [address] [facility] [address] [place] [address] Jose Lara MD [address], [facility] [address] [place] [address] Health MaintenanceDue DateLast DoneCommentsInfluenza Aokqtaf1307/17/2025 09/07/2018, 09/13/2009, 08/27/2007, Additional history existsAdult BMI Follow Up PlanDepression Qycgappcq34dult BMI Eoncpxsaa34Tobacco Jxgipfuga87DTaP,Tdap and Td Vaccines (3 - Td or Tdap), 12/10/2012 Medical Devices ImplantedTypeAreaManufacturerDevice IdentifierShelf Expiration DateModel / Serial / LotBtn Sept Nsl Lyric Dev - Sna - [id number] Implanted:Qty: 1 on 01/17/2021 by [facility]ui [facility]tero MD [facility] ImplantN/A: NoseUSE MDTR ENT F/ENT01/17/2028 [id number] / NA / [id number] Procedures Procedure NamePriorityDate/TimeAssociated DiagnosisCommentsTROP I, HIGH SENSITIVITY 1 ISAPIMWG87/31/2025 7:16 PM EDT POCT NURSING URINE MACROSCOPIC PZUqykpkf25/31/2025 7:01 PM EDT ER EXTRA URINE UUIVKXQZEE65/31/2025 6:46 PM EDT ER EXTRA URINE TSBBMRXAPQC31/31/2025 6:46 PM EDT ER EXTRA IRNRJGJLQ81/31/2025 6:46 PM EDT XR CHEST 1 KLBOSX1807/16/2025 6:37 PM EDT XR ABDOMEN AP 1 LSFFBN1307/16/2025 6:[address] BRAIN WO CDBGTJUC36/31/2025 6:36 PM EDT EXTRA TUBES BLUE EMMEhikelo97/31/2025 6:14 PM EDT EXTRA MQKXWPzdablv89/31/2025 6:14 PM EDT TROPONIN I, HIGH SENSITIVITY 0 ZUCTLCSQ79/31/2025 6:14 PM EDT TROPONIN I, HIGH SENSITIVITY 0 XXLBZEHJ50/31/2025 6:14 PM EDT ILTKLIHNNU63/31/2025 6:14 PM EDT COMPREHENSIVE METABOLIC JZDPHLNZD46/31/2025 6:14 PM EDT CBC WITH AUTO FIAMXUZXCZSHKUMD83/31/2025 6:14 PM EDT ECG 12-PRRLEJJS04/31/2025 5:38 PM EDT from Last 3 Months Results * Troponin I, High Sensitivity 1 Hour (07/16/2025 7:16 PM EDT)ComponentValueRef RangeTest MethodAnalysis TimePerformed AtPathologist SignatureTROPONIN I, HIGH SENSITIVITY4<16 ng/L07/16/2025 8:[address] [facility] Specimen (Source)Anatomical Location / LateralityCollection Method / Volume Collection TimeReceived TimeBloodVenous blood / UnknownVenipuncture / Unknown 07/16/2025 7:16 PM EDT07/16/2025 7:38 PM EDT Narrative Authorizing ProviderResult TypeResult StatusRachel Davy Anne FIRE EXTINGUISHER CHARGER-CNPLAB BLOOD ORDERABLESFinal ResultPerforming OrganizationAddressCity/State/ZIP CodePhone Number [facility] [address] [place] [address], [place] * POCT Nursing Urine Macroscopic UA (07/16/2025 7:01 PM EDT)ComponentValueRef RangeTest MethodAnalysis TimePerformed AtPathologist SignatureST. [facility] Urine Specific Gravity1.0151.010, 1.015, 1.020, 1.5048207/16/2025 6:51 PM EDTPDILEY RIDGE MEDICAL CENTERPO Urine Leukocyte EsteraseNegativeNegative 07/16/2025 6:51 PM EDTPGENESIS HOSPITAL Urine Nitrite VsmavwapHpfkpxwz84/31/2025 6:51 PM EDSELECT [facility] Urine pH7.55.0, 6.0, 6.5, 7.0, 7.5, 8.0, 8.5, 5.5007/16/2025 6:51 PM EDT [facility] Urine MamodsuOikjutdwKqqcfunj30/31/2025 6:51 PM EDTPGENESIS HOSPITAL Urine GlucoseNegative Qgmylajl66/31/2025 6:51 PM EDSELECT [facility] Urine PyjuqpeRjmvhvinFfukdutv33/31/2025 6:51 PM EDSELECT [facility] Urine Urobilinogen0.2 E.U./dL07/16/2025 6:51 PM EDSELECT [facility] Urine VhirakxirRtwosjkwPetbhuzs55/31/2025 6:51 PM EDSELECT [facility] Urine Blood/HGBNegativeNegative 07/16/2025 6:51 PM EDOhio[facility] (Source) Anatomical Location / LateralityCollection Method / VolumeCollection Time Received JcnjOwezh57/31/2025 7:01 PM EDT07/16/2025 6:51 PM EDT Narrative Authorizing ProviderResult TypeResult StatusDanidwayne Delvalle DOPOINT OF CARE TEST ORDERABLESFinal ResultPerforming OrganizationAddressCity/State/ZIP Code Phone Number [facility] [address] [facility] [place] [address], * Extra Urine [place] (07/16/2025 6:46 PM EDT)ComponentValueRef RangeTest Method Analysis TimePerformed AtPathologist SignatureExtra TubeAuto Resulted 07/16/2025 8:02 PM EDOhioHealth [facility] Hospital (Source) Anatomical Location / LateralityCollection Method / VolumeCollection Time Received TimeUrineUrine specimen collection, clean catch / Pqaqozj0607/16/2025 6:46 PM EDT07/16/2025 7:10 PM EDT Narrative Authorizing ProviderResult TypeResult StatusRachel D Dayana FIRE EXTINGUISHER CHARGER-CNPURINE ORDERABLESFinal ResultPerforming OrganizationAddressty/State/ZIP CodePhone Number [address] [place] [address], * Extra Urine Culture (07/16/2025 6:46 PM EDT)ComponentValueRef RangeTest Method Analysis TimePerformed AtPathologist SignatureExtra TubeAuto Resulted 07/16/2025 8:01 PM EDTPSumma Health [facility] (Source) Anatomical Location / LateralityCollection Method / VolumeCollection Time Received TimeUrineUrine specimen collection, clean catch / Ycchxde7507/16/2025 6:46 PM EDT07/16/2025 7:03 PM EDT Narrative Authorizing ProviderResult TypeResult StatusRachel D Dayana FIRE EXTINGUISHER CHARGER-CNPURINE ORDERABLESFinal ResultPerforming OrganizationAddressCity/State/ZIP CodePhone Number [address] [place] [address], [place] * Extra Urine (07/16/2025 6:46 PM EDT)ComponentValueRef RangeTest MethodAnalysis TimePerformed AtPathologist SignatureExtra TubeAuto Uecakcmn95/31/2025 8:02 PM EDTPSELECT MEDICAL [facility] S[facility]THpecel[facility] (Source)Anatomical Location / LateralityCollection Method / VolumeCollection TimeReceived TimeUrineUrine specimen collection, clean catch / Oaqczcy6507/16/2025 6:46 PM EDT07/16/2025 7:03 PM EDT Narrative Authorizing ProviderResult TypeResult StatusRachel D Dayana FIRE EXTINGUISHER CHARGER-CNPURINE ORDERABLESFinal ResultPerforming OrganizationAddPenn State Healthty/State/ZIP CodePhone Number [address] [place] [address], * X-ray chest 1 view (07/16/2025 6:37 PM EDT)Anatomical RegionLateralityModality Body, ChestN/AComputed RadiographySpecimen (Source)Anatomical Location / LateralityCollection Method / VolumeCollection TimeReceived Time07/16/2025 7:09 PM EDT Narrative 07/16/2025 7:09 PM EDT Chest: HISTORY: Chest pain. Single view of the chest was obtained and compared to prior exam dated January 16, 2025. Cardiac and mediastinal contours are within normal limits. Lungs are clear. There is no vascular congestion, effusion, or pneumothorax. Osseous structures appear intact. IMPRESSION: No acute findings. Finalized by Enzo Holcomb MD on 07/16/2025 7:09 PM Procedure Note Enzo Holcomb MD - 07/16/2025 Chest: HISTORY: Chest pain. Single view of the chest was obtained and compared to prior exam datedM2024. Cardiac and mediastinal contours are within normal limits.Lungs are clear. There is no vascular congestion, effusion, orpneumothorax. Osseous structures appear intact. IMPRESSION: No acute findings. Finalized by Enzo Holcomb MD on 07/16/2025 7:09 PM Authorizing ProviderResult TypeResult StatusRachel Davy Anne FIRE EXTINGUISHER CHARGER[facility] DIAGNOSTIC IMAGING ORDERABLESFinal Result * X-ray abdomen ap 1 view (07/16/2025 6:37 PM EDT)Anatomical RegionLaterality ModalityBody, AbdomenN/AComputed RadiographySpecimen (Source)Anatomical Location / LateralityCollection Method / VolumeCollection TimeReceived Time 07/16/2025 7:00 PM EDT Narrative 07/16/2025 7:01 PM EDT CLINICAL HISTORY: Abdominal pain Comparison: ??None Views: 1 view FINDINGS: * ??The bowel gas pattern is nonobstructive. No suspicious calcification. No free air. No definite organomegaly. Mild amount retained fecal content IMPRESSION: * ?? Unremarkable supine abdomen Finalized by Adi Barfield MD on 07/16/2025 7:01 PM Procedure Note Adi Barfield MD - 07/16/2025 CLINICAL HISTORY: Abdominal pain Comparison: None Views: 1 view FINDINGS: * The bowel gas pattern is nonobstructive. No suspicious calcification.No free air. No definite organomegaly. Mild amount retained fecalcontent IMPRESSION: * Unremarkable supine abdomen Finalized by Adi Barfield MD on 07/16/2025 7:01 PM Authorizing ProviderResult TypeResult StatusDanidwayne Delvalle [facility] DIAGNOSTIC IMAGING ORDERABLESFinal Result * CT brain without contrast (07/16/2025 6:36 PM EDT)Anatomical RegionLaterality ModalityNeuro, Head, Head and Neck, Neuro CoveraN/AComputed TomographySpecimen (Source)Anatomical Location / LateralityCollection Method / VolumeCollection TimeReceived Time07/16/2025 6:38 PM EDT Narrative 07/16/2025 6:39 PM EDT HISTORY: A 39-year-old female with a history of headaches. EXAM/TECHNIQUE: ??Multidetector spiral CT scan of brain is performed. ??Multiplanar reconstruction images are reformatted. All CT scans at this facility use dose modulation, iterative reconstruction, and/or weight based dosing when appropriate to reduce radiation dose to as low as reasonably achievable. COMPARISON: ??Comparison is made with the CT scan of the brain of 02/13/2025. FINDINGS: ??The ventricular system is normal in size and configuration. There is normal differentiation of chowdhury and white matters. There is no evidence of intracranial hemorrhage or acute pathology. The cerebellum and brainstem are unremarkable. There is a Arsenal empty sella. No mass effect, midline shift of the structures or extra-axial fluid collections are noted. The calvarium is intact. The visualized paranasal sinuses and mastoid air cells are clear. IMPRESSION: ?? * ??No evidence of intracranial hemorrhage or acute pathology. * ??Partial empty sella. This is a one of the findings for the idiopathic intracranial hypertension. A clinical correlation is suggested. Finalized by Tommy Damico MD on 07/16/2025 6:39 PM Procedure Note Tommy Damico MD - 07/16/2025 HISTORY: A 39-year-old female with a history of headaches. EXAM/TECHNIQUE: Multidetector spiral CT scan of brain is performed.Multiplanar reconstruction images are reformatted. All CT scans at this facility use dose modulation, iterativereconstruction, and/or weight based dosing when appropriate to reduceradiation dose to as low as reasonably achievable. COMPARISON: Comparison is made with the CT scan of the brain of02/13/2025. FINDINGS: The ventricular system is normal in size and configuration.There is normal differentiation of chowdhury and white matters. There is no evidence of intracranial hemorrhage or acute pathology. The cerebellum and brainstem are unremarkable. There is a Arsenal emptysella. No mass effect, midline shift of the structures or extra-axial fluidcollections are noted. The calvarium is intact. The visualized paranasal sinuses and mastoid air cells are clear. IMPRESSION: * No evidence of intracranial hemorrhage or acute pathology. * Partial empty sella. This is a one of the findings for the idiopathic intracranial hypertension. A clinical correlation is suggested. Finalized by Tommy Damico MD on 07/16/2025 6:39 PM Authorizing ProviderResult TypeResult StatusDasameer Delvalle [facility] CT ORDERABLESFinal Result * Troponin I, High Sensitivity 0 Hour (07/16/2025 6:14 PM EDT)ComponentValueRef RangeTest MethodAnalysis TimePerformed AtPathologist SignatureTROPONIN I, HIGH SENSITIVITY<2<16 ng/L07/16/2025 6:[address] [facility] Specimen (Source)Anatomical Location / LateralityCollection Method / Volume Collection TimeReceived TimeBloodVenous blood / UnknownVenipuncture / Unknown 07/16/2025 6:14 PM EDT07/16/2025 6:18 PM EDT Narrative Authorizing ProviderResult TypeResult StatusDorothea Anne APRN-CNPLAB BLOOD ORDERABLESFinal ResultPerforming OrganizationAddressCity/State/ZIP CodePhone Number [facility] [address] [facility] [place] [address], * Light Blue Top (07/16/2025 6:14 PM EDT)ComponentValueRef RangeTest Method Analysis TimePerformed AtPathologist SignatureExtra TubeAuto Resulted 07/16/2025 8:01 PM [facility]ITALpec[facility] (Source) Anatomical Location / LateralityCollection Method / VolumeCollection Time Received TimeBloodVenous blood / UnknownVenipuncture / Wcliozh0907/16/2025 6:14 PM EDT07/16/2025 6:18 PM EDT Narrative Authorizing ProviderResult TypeResult StatusDanidwayne Delvalle DOL BLOOD ORDERABLESFinal ResultPerforming OrganizationAddressCity/State/ZIP CodePhone Number [facility] [address] [place] [address], * CBC auto differential (07/16/2025 6:14 PM EDT)ComponentValueRef RangeTest MethodAnalysis TimePerformed AtPathologist SignatureWBC9.84 - 11 x10E9/L 07/16/2025 6:26 PM EDTPDILEY RIDGE MEDICAL CENTERRBC Count4.403.8 - 5.2 X10E12/L07/16/2025 6:[address] [facility] Aldwyliwlb23.811.7 - 15.5 g/dL07/16/2025 6:26 PM EDTPDILEY RIDGE MEDICAL CENTERHematocrit38.435 - 47 %07/16/2025 6:26 PM EDTPDILEY RIDGE MEDICAL CENTERMCV8780 - 100 fL07/16/2025 6:26 PM EDTPDILEY RIDGE MEDICAL CENTERMCH29.127 - 34 pg07/16/2025 6:26 PM EDTPDILEY RIDGE MEDICAL CENTERMCHC33.332 - 36 g/dL07/16/2025 6:26 PM EDTPDILEY RIDGE MEDICAL CENTERRDW13.211.5 - 15 %07/16/2025 6:26 PM EDTPDILEY RIDGE MEDICAL CENTERPlatelet Qudwi092215 - 450 X10E9/L07/16/2025 6:26 PM EDT [facility]ENTERMPV7.67 - 12 fL07/16/2025 6:26 PM EDT [facility] CENTERNeutrophils %59.8%07/16/2025 6:26 PM EDT [facility] CENTERLymphocytes %27.9%07/16/2025 6:26 PM EDT [facility]ENTERMonocytes %9.1%07/16/2025 6:26 PM EDT [facility]ENTEREosinophils %2.6%07/16/2025 6:26 PM EDT [facility]ENTERBasophils %0.6%07/16/2025 6:26 PM EDT [facility] CENTERNeutrophils Absolute (A)5.91.5 - 6.6 10*3/uL07/16/2025 6:26 PM EDOHIOHEALTH NELSONVILLE HEALTH CENTERLymphocytes Absolute2.71.0 - 3.5 10*3/07/16/2025 6:26 PM EDTPDILEY RIDGE MEDICAL CENTERMonocytes Absolute0.90.0 - 0.9 10*3/07/16/2025 6:26 PM EDTPDILEY RIDGE MEDICAL CENTEREosinophils Absolute0.20.0 - 0.4 10*3/07/16/2025 6:26 PM EDTPDILEY RIDGE MEDICAL CENTERBasophils Absolute0.10.0 - 0.2 10*3/07/16/2025 6:26 PM EDOHIOHEALTH NELSONVILLE HEALTH CENTERDifferential TypeAUTOMATED FXWZOLPQKTCK00/31/2025 6:26 PM EDCLEVELAND CLINIC SOU[facility] POINTE HOSPITALpecelbert memorial hospital (Source)Anatomical Location / LateralityCollection Method / VolumeCollection TimeReceived TimeBloodVenous blood / UnknownVenipuncture / Wwrgeht2307/16/2025 6:14 PM EDT07/16/2025 6:18 PM EDT Narrative Authorizing ProviderResult TypeResult StatusRachel Davy Anne FIRE EXTINGUISHER CHARGER-CNPLAB BLOOD ORDERABLESFinal ResultPerforming OrganizationAddressCity/State/ZIP CodePhone Number [facility] [address] [place] [address], * Lipase (07/16/2025 6:14 PM EDT)ComponentValueRef RangeTest MethodAnalysis Time Performed AtPathologist XvlcvpzbcHZTEVE9661 - 40 U/L07/16/2025 6:41 PM EDT [facility] (Source)Anatomical Location / LateralityCollection Method / VolumeCollection TimeReceived TimeBloodVenous blood / UnknownVenipuncture / Noevtpp0907/16/2025 6:14 PM EDT07/16/2025 6:18 PM EDT Narrative Authorizing ProviderResult TypeResult StatusRachel Davy Anne FIRE EXTINGUISHER CHARGER-CNPLAB BLOOD ORDERABLESFinal ResultPerforming OrganizationAddressCity/State/ZIP CodePhone Number [facility] [address] [facility] [place] [address], * (ABNORMAL) Comprehensive metabolic panel (07/16/2025 6:14 PM EDT)Component ValueRef RangeTest MethodAnalysis TimePerformed AtPathologist SignatureSODIUM 737731 - 146 mmol/L07/16/2025 6:43 PM EDOHIOHEALTH NELSONVIL[facility]ENTER POTASSIUM4.13.5 - 5.0 mmol/L07/16/2025 6:43 PM EDOHIOHEALTH NELSONVILLE HEALTH CENTERCHLORIDE10598 - 109 mmol/L07/16/2025 6:43 PM EDOHIOHEALTH NELSONVILLE HEALTH CENTERCARBON ACOVOOT9854 - 32 mmol/L07/16/2025 6:43 PM EDOHIOHEALTH NELSONVILLE HEALTH CENTERANION GAP65 - 15 mmol/L07/16/2025 6:43 PM EDT [facility] CENTERBLOOD UREA NGWKBASF652 - 23 mg/dL07/16/2025 6:[address] [facility]ITALCREATININE0.640.40 - 1.00 mg/dL 07/16/2025 6:[address] [facility]OSPITALComment:METHOD TRACEABLE TO IDMS QDZNRYGNESNWZPH222(H)65 - 99 mg/dL07/16/2025 6:43 PM EDT [facility] CENTERCALCIUM8.88.5 - 10.5 mg/dL07/16/2025 6:43 PM EDOHIOHEALTH NELSONVILLE HEALTH CENTERTOTAL PROTEIN6.76.0 - 8.0 g/dL 07/16/2025 6:[address] [facility] HOSPITALALBUMIN3.73.2 - 5.3 g/dL07/16/2025 6:[address] [facility]OSPITALALKALINE DTKOAAVLEUG0340 - 130 U/L07/16/2025 6:43 PM [facility]<=41 U/L07/16/2025 6:[address] [facility] ALT15<=31 U/L07/16/2025 6:[address] [facility] BILIRUBIN,TOTAL0.40.3 - 1.2 mg/dL07/16/2025 6:[address] [facility]GFR Non-Race Dependent>90>=60 ml/min/1.73sq.m007/16/2025 6:[address] [facility] eGFR not reported due to non-numeric value for Creatinine. Reported eGFR is based on the CKD-EPI 2020 equation that does not use a race coefficient. Specimen (Source)Anatomical Location / LateralityCollection Method / Volume Collection TimeReceived TimeBloodVenous blood / UnknownVenipuncture / Unknown 07/16/2025 6:14 PM EDT07/16/2025 6:18 PM EDT Narrative Authorizing ProviderResult TypeResult StatusRachel D Dayana FIRE EXTINGUISHER CHARGER-CNPLAB BLOOD ORDERABLESFinal ResultPerforming OrganizationAddressCity/State/ZIP CodePhone Number [facility] [address] [place] [address], * ECG 12 lead (07/16/2025 5:38 PM EDT)Specimen (Source)Anatomical Location / LateralityCollection Method / VolumeCollection TimeReceived Time07/16/2025 5:38 PM EDT Narrative [facility] - 07/16/2025 7:26 PM EDT Authorizing ProviderResult TypeResult StatusRachel D Dayana FIRE EXTINGUISHER CHARGER-CNPECG ORDERABLESFinal ResultPerforming OrganizationAddressCity/State/ZIP CodePhone Number [facility] from Last 3 Months Insurance Care Teams Team MemberRelationshipSpecialtyStart DateEnd Date Lowell Whitten, FIRE EXTINGUISHER CHARGER-CABINETMAKER MAINTENANCE [address] [place] [address] PCP - GeneralInternal Medicine06/05/25
[2025-09-14 17:08] LABS: Age Gdln ACOG Testing Note (.); IGP, Aptima HPV, rfx 16/18,45 Note (.)
== END 2025-09-11 20:10 | disposition home or self-care (01) ==
LOC: LAB 20:09
PROVIDERS: Visit Provider Physician Assistant
DX: Z01.419 Encounter for gynecological examination (general) (routine) without abnormal findings (principal)
CPT/HCPCS: 87624; 88175